=== PATIENT | male | born 1985 | race Caucasian/White ===

== ENCOUNTER 2021-03-20 15:27 | Emergency (ER) | payer SELFPAY ==
--- NOTE | 2021-03-20 15:34 | XR_ITS ---
WS: [id number] XR chest 1V portable [id number] REASON FOR EXAM: cp FINDINGS: The heart and the mediastinum are within normal limits. Calcified granulomatous changes in both hemithoraces. No acute pulmonary parenchymal or pleural disease is identified. No acute abnormality. The bony thorax. XR/XR chest 1V portable [id number] IMPRESSION: No acute chest abnormality.
--- NOTE | 2021-03-20 15:35 | ECG_ITS ---
[facility] Test Date: 2021-03-20 Pat Name: Radhames Baker Department: Room: Gender: Male Fisher Spear: : 1985 Requested By: Norberto Keenan Order Number: [id number] Chappell MD: Casey Magana M.D. Measurements Intervals [place] Rate: 76 P: 58 ME: 133 QRS: 55 QRSD: 98 T: 44 QT: 362 QTc: 408 Interpretive Statements SINUS RHYTHM WITH SINUS ARRHYTHMIA EARLY REPOLARIZATION [ST ELEVATION WITH NORMALLY INFLECTED T-WAVE] No previous ECG available for comparison Electronically Signed On 03-21-2021 17:14:42 SUPERVISOR SCREEN MAKING by Casey Magana M.D. [email or web address] leflore [email or web address] [email or web address] medical [email or web address]/store/[id number] f
[2021-03-20 15:38] VITALS: BP 113/73; PULSE 70; RESP 16; TEMP 36.5; O2SAT 98; BMI 22.4
[2021-03-20 16:07] LABS: Basophils # 0.1 10^3/uL (0.0-0.1); Basophils % 0.6 %; Eosinophils # 0.3 10^3/uL (0.0-0.8); Eosinophils % 2.8 %; Lymphocytes # 3.7 10^3/uL (0.8-4.8); Lymphocytes % 33.7 %; Mean Corpuscular HGB Conc 31.8 g/dL (30.0-36.0); Mean Corpuscular Hemoglobin 28.8 pg (28.0-34.0); Mean Corpuscular Volume 90.5 fl (80-94); Mean Platelet Volume 10.6 fL (7.4-10.4); Monocytes # 0.7 10^3/uL (0.2-0.9); Monocytes % 6.7 %; Neutrophils # 6.05 10^3/uL (1.8-7.7); Neutrophils % 55.7 %; Nucleated Red Blood Cells % 0 %; Platelet Count 241 10^3/cmm (130-400); Red Blood Count 4.86 10^6/uL (4.1-5.3); Red Cell Distribution Width 12.8 % (12.1-15.1); White Blood Count 10.9 10^3/uL (4.0-10.0)
--- NOTE | 2021-03-20 16:11 | ED_ITS ---
HPI - Chest Pain General: Chief Complaint: Chest Pain Stated Complaint: CHEST PAIN Time Seen by Provider: 03/20/21 15:52 Source: patient and EMS Mode of arrival: EMS Limitations: no limitations History of Present Illness: 35-year-old male who states he has been having intermittent chest pains over the last week. He states the minute sharp pain in the center of his chest with some radiation down his left arm. States the pain currently is a 1 out of 10 denies any worsening improving factors no history of heart disease he does have a history of COPD is a smoker. Denies any history of blood clots. Associated symptoms: Deny abdominal pain, dyspnea, fever(s), nausea or vomiting Review of Systems Const: Denies: fever(s), chills, body aches or change in appetite Eyes: Denies: blurry vision or eye discomfort ENMT: Denies: throat pain or dental pain Card: Reports: chest pain Resp: Denies: dyspnea GI: Denies: abdominal pain, nausea, vomiting or diarrhea : Denies: dysuria Musc: Denies: neck pain or back pain Skin/Breast: Denies: rash Neuro: Denies: headache(s) Psych: Denies: depression Yosef/Lymph: Denies: easy bruising All/Imm: Denies: urticaria PFSH ED PFSH: Medical History (Updated 03/20/21 @ 18:23 by Latoya Guzman MD) COPD (chronic obstructive pulmonary disease) Social History (Updated 03/20/21 @ 16:12 by Latoya Guzman MD) Smoking and tobacco status: current every day smoker Physical Exam Const: COMMON NORMALS: no acute distress, patient oriented x3 and healthy appearing HENMT: COMMON NORMALS: normocephalic and atraumatic HEAD & SCALP: normocephalic and atraumatic Eye: COMMON NORMALS: Equal, round and reactive pupils present and EOMs intact bilaterally PUPIL: Yes Equal, round and reactive pupils present Neck/C-Spine: COMMON NORMALS: full ROM and supple Chest: COMMONS NORMALS: normal inspection of the chest and normal palpation of entire chest wall Resp: COMMON NORMALS: normal respiratory effort, No retractions, No use of accessory muscles and clear to auscultation bilaterally AUSCULTATION: clear to auscultation bilaterally Cardio: COMMON NORMALS: regular rate, regular rhythm and No murmurs present (Cardio) RATE: regular rate RHYTHM: regular rhythm GI: COMMON NORMALS: Normal to inspection, nondistended, normoactive bowel sounds present, Soft to palpation, non-tender and no masses PALPATION: Yes Soft to palpation Extremity: COMMON NORMALS: normal to inspection and full ROM Neuro: COMMON NORMALS: patient oriented x3, moves all extremities and no focal motor deficits Psych: COMMON NORMALS: mental status grossly normal, Normal thought process present and cooperative THOUGHT PROCESS: Normal thought process present Skin: COMMON NORMALS: no rashes or lesions noted and no wounds GENERAL SKIN EXAM: no rashes or lesions noted Course Vital Signs: Vital signs: Vital Signs Temperature 97.7 F 03/20/21 15:38 Pulse Rate 70 03/20/21 15:38 Respiratory Rate 16 03/20/21 15:38 Blood Pressure 113/73 03/20/21 15:38 Pulse Oximetry 98 03/20/21 15:38 MDM - Chest Pain Medical Decision Making Patient presents here with chest pain that is atypical in nature. Patient's troponins here are both negative x-ray and EKG are normal as well he stable for discharge she is to follow-up PCP and return if worsening he understands agrees to plan. Lab Data : 03/20/21 15:52 03/20/21 15:52 Radiology Impressions Chest X-Ray 03/20/21 15:34 IMPRESSION: No acute chest abnormality. Laboratory Results WBC 10.9 10^3/uL (4.0-10.0) H 03/20/21 15:52 RBC 4.86 10^6/uL (4.1-5.3) 03/20/21 15:52 Hgb 14.0 g/dL (11.7-16.6) 03/20/21 15:52 Hct 44.0 % (42.0-52.0) 03/20/21 15:52 MCV 90.5 fl (80-94) 03/20/21 15:52 MCH 28.8 pg (28.0-34.0) 03/20/21 15:52 MCHC 31.8 g/dL (30.0-36.0) 03/20/21 15:52 RDW 12.8 % (12.1-15.1) 03/20/21 15:52 Plt Count 241 10^3/cmm (130-400) 03/20/21 15:52 MPV 10.6 fL (7.4-10.4) H 03/20/21 15:52 Neut % (Auto) 55.7 % 03/20/21 15:52 Lymph % (Auto) 33.7 % 03/20/21 15:52 Coleman % (Auto) 6.7 % 03/20/21 15:52 Eos % (Auto) 2.8 % 03/20/21 15:52 Baso % (Auto) 0.6 % 03/20/21 15:52 Neut # (Auto) 6.05 10^3/uL (1.8-7.7) 03/20/21 15:52 Lymph # (Auto) 3.7 10^3/uL (0.8-4.8) 03/20/21 15:52 Coleman # (Auto) 0.7 10^3/uL (0.2-0.9) 03/20/21 15:52 Eos # (Auto) 0.3 10^3/uL (0.0-0.8) 03/20/21 15:52 Baso # (Auto) 0.1 10^3/uL (0.0-0.1) 03/20/21 15:52 Nucleated RBC % (auto) 0 % 03/20/21 15:52 Nucleated RBCs # 0.0 /100WBC 03/20/21 15:52 Sodium 140 mmol/L (136-145) 03/20/21 15:52 Potassium 4.2 mmol/L (3.5-5.1) 03/20/21 15:52 Chloride 103 mmol/L (98-107) 03/20/21 15:52 Carbon Dioxide 27 mmol/L (22-29) 03/20/21 15:52 Anion Gap 14.2 (5-19) 03/20/21 15:52 BUN 17 mg/dL (6-20) 03/20/21 15:52 Creatinine 1.0 mg/dL (0.7-1.2) 03/20/21 15:52 GFR Calculation 85.0 mL/min (90-130) L 03/20/21 15:52 Glucose 80 mg/dL (65-115) 03/20/21 15:52 Calculated Osmolality 291 mOsm/kg (285-295) 03/20/21 15:52 Calcium 9.2 mg/dL (8.5-10.5) 03/20/21 15:52 Total Bilirubin 0.6 mg/dL (0.15-1.2) 03/20/21 15:52 AST 21 U/L (0-40) 03/20/21 15:52 ALT 18 U/L (0-41) 03/20/21 15:52 Alkaline Phosphatase 111 IU/L (40-130) 03/20/21 15:52 Troponin T Baseline 7 ng/L (0-15) 03/20/21 15:52 Troponin T 120 Minute 6.00 ng/L (0-15) 03/20/21 17:41 Delta Troponin T -1.00 ABS# (0-10) L 03/20/21 17:41 Total Protein 6.5 g/dL (6.6-8.7) L 03/20/21 15:52 Albumin 4.9 g/dL (3.5-5.2) 03/20/21 15:52 Globulin 1.6 g/dL (1.3-4.6) 03/20/21 15:52 Imaging Data CXR: I personally reviewed and interpreted this imaging study as follows: Radiologist's impression: IMPRESSION: No acute chest abnormality. EKG Data EKG 1: I personally reviewed and interpreted this EKG as follows: EKG interpretation date: 03/20/21 EKG interpretation time: 15:49 Interpretation: nsr hr 76 early repol no stemi qrs 98 qtc 392 Discharge Plan Discharge Patient Disposition: Home Clinical Impression: Chest pain Discharge Orders: Discharge ED (Routine); Ordered 03/20/21 Ordered By: Latoya Guzman Discharge Diet: Advance as tolerated Discharge Activity: Resume usual activity Patient Instructions: Chest Pain (ED) Coding Level of Care Code ED Air Traffic Control Manager for Chg Fwd Exam Comprehensive
[2021-03-20 16:36] LABS: Alanine Aminotransferase 18 U/L (0-41); Albumin Level 4.9 g/dL (3.5-5.2); Alkaline Phosphatase 111 IU/L (40-130); Anion Gap 14.2 (5-19); Aspartate Amino Transferase 21 U/L (0-40); Blood Urea Nitrogen 17 mg/dL (6-20); Calcium 9.2 mg/dL (8.5-10.5); Carbon Dioxide 27 mmol/L (22-29); Chloride 103 mmol/L (98-107); Globulin 1.6 g/dL (1.3-4.6); Glucose 80 mg/dL (65-115); Osmolality Calculated 291 mOsm/kg (285-295); Potassium 4.2 mmol/L (3.5-5.1); Sodium 140 mmol/L (136-145); Total Bilirubin 0.6 mg/dL (0.15-1.2); Total Protein 6.5 g/dL (6.6-8.7)
[2021-03-20 16:40] LABS: Troponin(5th) Baseline 7 ng/L (0-15)
--- NOTE | 2021-03-21 11:04 | DCPLANNER ---
global product manager had message to speak with patient about getting a primary care physician. global product manager called phone number [phone], unable to speak with patient at this time, and unable to leave a voicemail for patient.
== END 2021-03-20 18:36 | disposition home or self-care (01) ==
PROVIDERS: Physician Assistant; Emergency Provider Emergency Medicine
DX: R07.9 Chest pain, unspecified (principal); J44.9 Chronic obstructive pulmonary disease, unspecified; F17.210 Nicotine dependence, cigarettes, uncomplicated
CPT/HCPCS: 71045; 80053; 84484; 85025; 93005; 99283

== ENCOUNTER 2021-12-15 18:35 | Inpatient (IN) | payer MEDICAID, SELFPAY ==
[2021-12-15 18:40] VITALS: BP 133/76; PULSE 98; RESP 16; TEMP 37.2; O2SAT 95; BMI 21.8
--- NOTE | 2021-12-15 19:13 | ED.C_ITS ---
HPI - Psych General: Chief Complaint: Psychiatric Symptoms Stated Complaint: psych eval Time Seen by Provider: 12/15/21 19:13 History of Present Illness: Mr. Baker is a 36-year-old gentleman with history of substance abuse and reported longstanding history of anxiety depression as well as ADHD presenting to the emergency department for psychiatric evaluation. He has not had recent psychiatric care nor is he on psychiatric medications. Apparently he was staying at a senior living and they were performing routine drug testing on him and he endorsed to them that he would likely test positive for amphetamines and therefore was kicked out. He presents today with a friend from the senior living concerned about his mental status. He does report intermittent thoughts of suicide as well as possible hallucinations though he has difficulty characterizing some of it. Denies actual attempt to harm himself or changes in medical health. Onset (ago): month(s) Duration: constant and getting worse Context: recent drug abuse and not taking psychiatric medications Associated psychiatric symptoms: suicidal ideation, auditory hallucinations and visual hallucinations Review of Systems General: Reports: 10 or more systems reviewed and unremarkable except in HPI and below PFSH ED PFSH: Medical History COPD (chronic obstructive pulmonary disease) Social History Smoking and tobacco status: current every day smoker Physical Exam Const: COMMON NORMALS: alert GENERAL APPEARANCE: cooperative and well developed HENMT: COMMON NORMALS: normocephalic and atraumatic HEAD & SCALP: normocephalic and atraumatic Eye: COMMON NORMALS: conjunctivae normal CONJUNCTIVA: Yes conjunctivae normal SCLERA: sclerae normal Neck/C-Spine: COMMON NORMALS: supple GENERAL: Yes trachea midline Resp: COMMON NORMALS: normal respiratory effort EFFORT & INSPECTION: Yes able to speak in complete sentences Cardio: COMMON NORMALS: regular rate and regular rhythm RATE: regular rate RHYTHM: regular rhythm GI: COMMON NORMALS: Soft to palpation PALPATION: Yes Soft to palpation and No Tenderness to palpation present (GI) PERCUSSION: normal to percussion Extremity: GENERAL: Yes normal exam except as noted and No edema Neuro: COMMON NORMALS: moves all extremities SENSORIUM/ORIENTATION: Yes alert and No Orientation impaired Psych: COMMON NORMALS: mental status grossly normal and Normal thought process present THOUGHT PROCESS: Normal thought process present Course Vital Signs: Vital signs: Vital Signs Temperature 97.3 F L 12/17/21 16:52 Pulse Rate 90 12/17/21 16:52 Respiratory Rate 20 H 12/17/21 16:52 Blood Pressure 106/69 12/17/21 16:52 Pulse Oximetry 95 12/17/21 16:52 Oxygen Delivery Me thod 12/16/21 06:00 MDM - Psych Medical Decision Making 36-year-old gentleman presenting with psychiatric symptoms. Patient has very odd affect and at times possibly interacting with internal stimuli. Labs notable for minimal leukocytosis which is nonspecific, no other significant hematologic or metabolic abnormality. UDS positive for amphetamines and toxic ingestions otherwise negative. No indication for imaging. The results of ED evaluation were discussed with the patient including plan for admission due to requirement for level of care not available if discharged to prevent significant worsening/deterioration. Patient agreeable with plan. Based on ED evaluation at this point there is no obvious condition that would preclude the patient from inpatient management of psychiatric symptoms. Discussed with psychiatry service and patient admitted to neuropsych unit. Medical Records I reviewed the patient's medical records. Lab Data I reviewed the patient's lab results. : 12/15/21 19:40 12/15/21 19:40 Laboratory Results WBC 11.3 10^3/uL (4.0-10.0) H 12/15/21 19:40 RBC 4.77 10^6/uL (4.1-5.3) 12/15/21 19:40 Hgb 13.7 g/dL (11.7-16.6) 12/15/21 19:40 Hct 42.9 % (42.0-52.0) 12/15/21 19:40 MCV 89.9 fl (80-94) 12/15/21 19:40 MCH 28.7 pg (28.0-34.0) 12/15/21 19:40 MCHC 31.9 g/dL (30.0-36.0) 12/15/21 19:40 RDW 13.4 % (12.1-15.1) 12/15/21 19:40 Plt Count 248 10^3/cmm (130-400) 12/15/21 19:40 MPV 10.0 fL (7.4-10.4) 12/15/21 19:40 Neut % (Auto) 68.9 % 12/15/21 19:40 Lymph % (Auto) 23.2 % 12/15/21 19:40 [place] % (Auto) 6.5 % 12/15/21 19:40 Eos % (Auto) 0.3 % 12/15/21 19:40 Baso % (Auto) 0.7 % 12/15/21 19:40 Neut # (Auto) 7.79 10^3/uL (1.8-7.7) H 12/15/21 19:40 Lymph # (Auto) 2.6 10^3/uL (0.8-4.8) 12/15/21 19:40 [place] # (Auto) 0.7 10^3/uL (0.2-0.9) 12/15/21 19:40 Eos # (Auto) 0.0 10^3/uL (0.0-0.8) 12/15/21 19:40 Baso # (Auto) 0.1 10^3/uL (0.0-0.1) 12/15/21 19:40 Nucleated RBC % (auto) 0 % 12/15/21 19:40 Nucleated RBCs # 0.0 /100WBC 12/15/21 19:40 Sodium 139 mmol/L (136-145) 12/15/21 19:40 Potassium 3.8 mmol/L (3.5-5.1) 12/15/21 19:40 Chloride 102 mmol/L (98-107) 12/15/21 19:40 Carbon Dioxide 27 mmol/L (22-29) 12/15/21 19:40 Anion Gap 13.8 (5-19) 12/15/21 19:40 BUN 20 mg/dL (6-20) 12/15/21 19:40 Creatinine 0.9 mg/dL (0.7-1.2) 12/15/21 19:40 GFR Calculation 95.5 mL/min (90-130) 12/15/21 19:40 Glucose 97 mg/dL (65-115) 12/15/21 19:40 Calculated Osmolality 291 mOsm/kg (285-295) 12/15/21 19:40 Calcium 9.5 mg/dL (8.5-10.5) 12/15/21 19:40 Total Bilirubin 1.0 mg/dL (0.15-1.2) 12/15/21 19:40 AST 27 U/L (0-40) 12/15/21 19:40 ALT 55 U/L (0-41) H 12/15/21 19:40 Alkaline Phosphatase 122 U/L (40-130) 12/15/21 19:40 Total Protein 7.5 g/dL (6.6-8.7) 12/15/21 19:40 Albumin 5.0 g/dL (3.5-5.2) 12/15/21 19:40 Globulin 2.5 g/dL (1.3-4.6) 12/15/21 19:40 TSH 5.18 uIU/mL (0.27-4.20) H 12/15/21 19:40 Free T4 0.91 ng/dL (0.82-1.77) 12/15/21 19:40 Salicylates < 0.3 mg/dL (3-10) L 12/15/21 19:40 Urine Opiates Screen Negative ng/mL (Negative) 12/15/21 19:32 Acetaminophen < 5.0 ug/mL (10-30) L 12/15/21 19:40 Ur Barbiturates Screen Negative ng/mL (Negative) 12/15/21 19:32 Ur Phencyclidine Scrn Negative ng/mL (Negative) 12/15/21 19:32 Ur Amphetamines Screen Positive ng/mL (Negative) H 12/15/21 19:32 U Benzodiazepines Scrn Negative ng/mL (Negative) 12/15/21 19:32 Urine Cocaine Screen Negative ng/mL (Negative) 12/15/21 19:32 U Marijuana (THC) Screen Negative ng/mL (Negative) 12/15/21 19:32 Ethyl Alcohol < 10 mg/dL (0-10) 12/15/21 19:40 Discharge Plan Discharge Patient Disposition: Admitted As Inpatient Admit Provider: Bobby Mott Clinical Impression: Suicidal ideation, Drug-induced psychotic disorder Condition: Stable Discharge Diet: Regular Discharge Activity: Resume usual activity Coding Level of Care Code ED Private Banker for Nicholas Lema
[2021-12-15 19:53] LABS: Basophils # 0.1 10^3/uL (0.0-0.1); Basophils % 0.7 %; Eosinophils % 0.3 %; Hematocrit 42.9 % (42.0-52.0); Hemoglobin 13.7 g/dL (11.7-16.6); Lymphocytes # 2.6 10^3/uL (0.8-4.8); Lymphocytes % 23.2 %; Mean Corpuscular HGB Conc 31.9 g/dL (30.0-36.0); Mean Corpuscular Hemoglobin 28.7 pg (28.0-34.0); Mean Corpuscular Volume 89.9 fl (80-94); Monocytes # 0.7 10^3/uL (0.2-0.9); Monocytes % 6.5 %; Neutrophils # 7.79 10^3/uL (1.8-7.7); Neutrophils % 68.9 %; Nucleated Red Blood Cells % 0 %; Platelet Count 248 10^3/cmm (130-400); Red Blood Count 4.77 10^6/uL (4.1-5.3); Red Cell Distribution Width 13.4 % (12.1-15.1); White Blood Count 11.3 10^3/uL (4.0-10.0)
[2021-12-15 20:17] LABS: Alanine Aminotransferase 55 U/L (0-41); Alkaline Phosphatase 122 U/L (40-130); Anion Gap 13.8 (5-19); Aspartate Amino Transferase 27 U/L (0-40); Blood Urea Nitrogen 20 mg/dL (6-20); Calcium 9.5 mg/dL (8.5-10.5); Carbon Dioxide 27 mmol/L (22-29); Chloride 102 mmol/L (98-107); Globulin 2.5 g/dL (1.3-4.6); Glomerular Filtration Rate 95.5 mL/min (90-130); Glucose 97 mg/dL (65-115); Osmolality Calculated 291 mOsm/kg (285-295); Potassium 3.8 mmol/L (3.5-5.1); Sodium 139 mmol/L (136-145); Total Protein 7.5 g/dL (6.6-8.7)
[2021-12-15 20:26] LABS: Acetaminophen < 5.0 ug/mL (10-30); Alcohol Level < 10 mg/dL (0-10); Salicylate < 0.3 mg/dL (3-10)
[2021-12-15 20:31] LABS: Amphetamines Screen Urine Positive (Negative); Barbiturates Screen Urine Negative (Negative); Benzodiazepines Screen Urine Negative (Negative); Cocaine Screen Urine Negative (Negative); Opiate Screen Urine Negative (Negative); PCP Screen Urine Negative (Negative); THC Screen Urine Negative (Negative)
[2021-12-15 20:52] LABS: Thyroid Stimulating Hormone 5.18 uIU/mL (0.27-4.20)
[2021-12-15 22:01] LABS: Free T4 Free Thyroxine 0.91 ng/dL (0.82-1.77)
[2021-12-15 22:12] VITALS: BP 139/61; PULSE 82; RESP 17; O2SAT 98
[2021-12-15 22:34] VITALS: BP 132/82; PULSE 82; RESP 17; TEMP 36.6; O2SAT 95
[2021-12-16] MEDS: OLANZapine 5 mg ODT PO (03:38)
[2021-12-16 06:00] VITALS: BP 145/81; PULSE 79; RESP 16; TEMP 36.6; O2SAT 97
--- NOTE | 2021-12-16 09:19 | W.PM.NPUH&PS ---
Providers/Chief Complaint Admitting Physician: Bobby Mott MD Chief Complaint: psych eval HPI NPU History of Present Illness Radhames Baker is a 36 year old male who presented to the emergency department with the following report: Chief Complaint: Psychiatric Symptoms Stated Complaint: psych eval Time Seen by Provider: 12/15/21 19:13 History of Present Illness: Mr. Baker is a 36-year-old gentleman with history of substance abuse and reported longstanding history of anxiety depression as well as ADHD presenting to the emergency department for psychiatric evaluation. He has not had recent psychiatric care nor is he on psychiatric medications. Apparently [facility] at a [facility] and they were performing routine drug testing on him and he endorsed to them that he would likely test positive for amphetamines and therefore was kicked out. He presents today with a friend from the [facility] concerned about his mental status. He does report intermittent thoughts of suicide as well as possible hallucinations though he has difficulty characterizing some of it. Denies actual attempt to harm himself or changes in medical health. He was admitted to the neuropsychiatric unit for definitive treatment of those issues. He presents today initially unarousable but then later able to get up and have a conversation of limited utility. He was either unable or unwilling to give historical data other than what was already known. Specifically that he had [place] [facility] [place] that reportedly they asked him to take a drug test that he denies he would be positive on and that they reportedly kicked him out. He came here reporting that he wanted to get assistance with his mental health challenges. However after being very resistant to questions he began focusing on when he could be discharged. Initially talked about being open to starting antipsychotic but then he began focusing on the fact that he has items outside of the hospital that he has to get. When asked what he would do after he got those items he reported he would return to [facility] We discussed the fact that [facility] [place] does not allow people who have been dismissed to return for 1 year. He then reported that after he got his things he would be able to figure things out. This contract technical writer attempted to describe date of that [place] town there are not many alternatives. He was convinced that he would be able to figure out an alternative arrangement that would not involve being homeless or on the streets even though he acknowledged that he had no money or access to money. We discussed him sleeping at today and thus discussing tomorrow given that it was unclear whether he would be safe for discharge. He was agreeable to stay for the night but was very adamant about wanting to be discharged tomorrow. Attempts at psychosocial history were met with resistance or answers vet diagnosis due to his disorganization. Meds NPU Home Medications Medication Instructions Recorded Confirmed Last Taken Type No Known Home Medications 12/15/21 12/15/21 Unknown History Allergies Allergy/AdvReac Type Severity Reaction Status Date / Time No Known Allergies Allergy Verified 03/20/21 15:38 PFSH NPU PFSH: Medical History (Updated 12/17/21 @ 08:23 by Bobby Mott MD) COPD (chronic obstructive pulmonary disease) Social History (Updated 03/20/21 @ 16:12 by Latoya Guzman MD) Smoking and tobacco status: current every day smoker Mental Status Exam MSE Comments: This is a slender white male in hospital scrubs with limited grooming and eye contact. No abnormal movements except for psychomotor retardation. Mostly cooperative with exam in mild distress. Speech was limited and decreased rate and volume. Mood described as fine but I have to get my things, affect odd. Thought process linear but at times disorganized. Thought content: Patient denied suicidal or homicidal ideation, there were no delusions reported but clear paranoia existed, he denied auditory or visual hallucinations but was seen in speaking to himself when away from this contract technical writer. Attention and concentration were intact and memory seemed unreliable but none were formally tested. He was already x3. Insight and judgment and impulse control seemed limited to impaired. Vitals/I&O/Wt Last Vital Signs Temp 97.9 F 12/16/21 06:00 Pulse 79 12/16/21 06:00 Resp 16 12/16/21 06:00 BP 145/81 12/16/21 06:00 Pulse Ox 97 12/16/21 06:00 O2 Del Method 12/16/21 06:00 Weight last 48 hrs Weight 67.132 kg Data NPU : 12/15/21 19:40 12/15/21 19:40 A&P Assessment and plan (1) Suicidal ideation: (2) Drug-induced psychotic disorder: (3) COPD (chronic obstructive pulmonary disease): (4) Psychosis: (5) Methamphetamine use disorder, severe: Plan This is a 36-year-old white male with history of psychosis as well as active addiction who presents homeless and disorganized but with limited interest in considering medications and treatment. 1. Review medications. Offer antipsychotic the patient wavering on whether to stay and it is unclear whether criteria for forced inpatient hospitalization is present. 2. Continue to continue to check for safety. 3. Encourage individual, group vet and therapy. 4. Encourage sober living treatment after discharge at the highest level of care to which he is willing to commit. 5. Consider 96-hour hold. Involuntary Hold Information 96 Hour Hold: 96 Hour Involuntary Admission: No Attestations NPU Medical Necessity Statement*: Inpatient hospitalization is medically necessary and the clinically appropriate intervention at this time. We will monitor/start medications and make changes as indicated. He will be in the hospital over 2 midnights. Likely length of stay 4 to 6 days. Coding Level of Care Code Acute Bariatric Physician for Nicholas Lema Diagnoses Suicidal ideation R45.851 Drug-induced psychotic disorder F19.959 COPD (chronic obstructive pulmonary disease) J44.9 Psychosis F29 Methamphetamine use disorder, 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
[2021-12-16 14:00] VITALS: BP 95/56; PULSE 73; RESP 18; TEMP 36.5; O2SAT 96
[2021-12-16 19:40] VITALS: BP 116/73; PULSE 97; RESP 17; O2SAT 98
[2021-12-17 06:00] VITALS: BP 105/55; PULSE 69; RESP 16; TEMP 36.4; O2SAT 97
[2021-12-17 14:00] VITALS: BP 106/69; PULSE 90; RESP 20; TEMP 36.3; O2SAT 95
--- NOTE | 2021-12-17 16:51 | P.NPUDS_ITS ---
Diagnoses at Discharge Discharge Diagnosis (1) Suicidal ideation: Status: Resolved (2) Drug-induced psychotic disorder: Status: Acute (3) COPD (chronic obstructive pulmonary disease): Status: Acute (4) Psychosis: Status: Acute (5) Methamphetamine use disorder, severe: Status: Acute Reason for Visit Reason for Visit: psych eval Brief History: History of Present Illness Radhames Baker is a 36 year old male who presented to the emergency department with the following report: Chief Complaint: Psychiatric Symptoms Stated Complaint: psych eval Time Seen by Provider: 12/15/21 19:13 History of Present Illness:?? Mr. Baker is a 36-year-old gentleman with history of substance abuse and reported longstanding history of anxiety depression as well as ADHD presenting to the emergency department for psychiatric evaluation.? He has not had recent psychiatric care nor is he on psychiatric medications.? Apparently he was staying at a [place] [facility] [place] and they were performing routine drug testing on him and he endorsed to them that he would likely test positive for amphetamines and therefore was kicked out.? He presents today with a friend from the [place] [facility] [place] concerned about his mental status.? He does report intermittent thoughts of suicide as well as possible hallucinations though he has difficulty characterizing some of it.? Denies actual attempt to harm himself or changes in medical health. He was admitted to the neuropsychiatric unit for definitive treatment of those issues.? He presents today initially unarousable but then later able to get up and have a conversation of limited utility.? He was either unable or unwilling to give historical data other than what was already known.? Specifically that he had been at [facility] and that reportedly they asked him to take a drug test that he denies he would be positive on and that they reportedly kicked him out.? He came here reporting that he wanted to get assistance with his mental health challenges.? However after being very resistant to questions he began focusing on when he could be discharged.? Initially talked about being open to starting antipsychotic but then he began focusing on the fact that he has items outside of the hospital that he has to get.? When asked what he would do after he got those items he reported he would return to [facility].? We discussed the fact that [facility] generally does not allow people who have been dismissed to return for 1 year.? He then reported that after he got his things he would be able to figure things out.? This property underwriter attempted to describe date of that [place] a [place] town there are not many alternatives.? He was convinced that he would be able to figure out an alternative arrangement that would not involve being homeless or on the streets even though he acknowledged that he had no money or access to money.? We discussed him sleeping at today and thus discussing tomorrow given that it was unclear whether he would be safe for discharge.? He was agreeable to stay for the night but was very adamant about wanting to be discharged tomorrow.? Attempts at psychosocial history were met with resistance or answers vet diagnosis due to his disorganization. Hospital Course Hospital Course He slowly acclimated to the individual, group and milieu therapies.? He was resistant to medication and endorsed a desire to leave due to great concerns about items he has stashed in the community. We discussed our concerns about what seemed to be thought disorder but he did not have any clear issues that would allow for a 96-hour hold paperwork. We discussed the fact that our suspicion is that he is having psychosis that would need treatment but that we would allow him to leave as a voluntary patient with the understanding that if he returns it will be confirmation of our suspicions. He showed mild improvement during the hospitalization and was able to contract for safety outside of the hospital prior to discharge.? During the hospitalization, patient had routine laboratory studies which were within normal limits except for few outliers.? Additionally there was a general medical evaluation which was also within normal limits and revealed no new acute processes. Discharge Summary: At the time of discharge, lethality was denied and psychosis appeared present but underwhelming.? Mood and anxiety were well managed.? Patient endorsed a plan to avoid all drugs of abuse and follow-up with the aftercare recommendations of the treatment team.? Patient was evaluated and deemed to be absent credible lethality, and was a voluntary patient lacking criteria for a 96-hour hold no longer wanting inpatient hospitalization, so he was discharged. Involuntary Hold Information 96 Hour Hold: 96 Hour Involuntary Admission: No Mental Status Exam MSE Comments: This is a slender white male in hospital scrubs with limited grooming and eye contact. No abnormal movements except for psychomotor retardation. Mostly cooperative with exam in mild distress. Speech was limited and decreased rate and volume. Mood described as fine but I have to get my things, affect odd. Thought process linear but at times disorganized. Thought content: Patient denied suicidal or homicidal ideation, there were no delusions reported but clear paranoia existed, he denied auditory or visual hallucinations but was seen in speaking to himself when away from this property underwriter. Attention and concentration were intact and memory seemed unreliable but none were formally tested. He was already x3. Insight and judgment and impulse control seemed limited to impaired. Discharge Data Studies Completed and Pending: Laboratory Results WBC 11.3 10^3/uL (4.0 -10.0) H 12/15/21 19:40 RBC 4.77 10^6/uL (4.1 -5.3) 12/15/21 19:40 Hgb 13.7 g/dL (11.7-1 6.6) 12/15/21 19:40 Hct 42.9 % (42.0-52.0 ) 12/15/21 19:40 MCV 89.9 fl (80-94) 12/15/21 19:40 MCH 28.7 pg (28.0-34. 0) 12/15/21 19:40 MCHC 31.9 g/dL (30.0-3 6.0) 12/15/21 19:40 RDW 13.4 % (12.1-15.1 ) 12/15/21 19:40 Plt Count 248 10^3/cmm (130 -400) 12/15/21 19:40 MPV 10.0 fL (7.4-10.4 ) 12/15/21 19:40 Neut % (Auto) 68.9 % 12/15/21 19:40 Lymph % (Auto) 23.2 % 12/15/21 19:40 Pine % (Auto) 6.5 % 12/15/21 19:40 Eos % (Auto) 0.3 % 12/15/21 19:40 Baso % (Auto) 0.7 % 12/15/21 19:40 Neut # (Auto) 7.79 10^3/uL (1.8 -7.7) H 12/15/21 19:40 Lymph # (Auto) 2.6 10^3/uL (0.8- 4.8) 12/15/21 19:40 Pine # (Auto) 0.7 10^3/uL (0.2- 0.9) 12/15/21 19:40 Eos # (Auto) 0.0 10^3/uL (0.0- 0.8) 12/15/21 19:40 Baso # (Auto) 0.1 10^3/uL (0.0- 0.1) 12/15/21 19:40 Nucleated RBC % (a uto) 0 % 12/15/21 19:40 Nucleated RBCs # 0.0 /100WBC 12/15/21 19:40 Sodium 139 mmol/L (136-1 45) 12/15/21 19:40 Potassium 3.8 mmol/L (3.5-5 .1) 12/15/21 19:40 Chloride 102 mmol/L (98-10 7) 12/15/21 19:40 Carbon Dioxide 27 mmol/L (22-29) 12/15/21 19:40 Anion Gap 13.8 (5-19) 12/15/21 19:40 BUN 20 mg/dL (6-20) 12/15/21 19:40 Creatinine 0.9 mg/dL (0.7-1. 2) 12/15/21 19:40 GFR Calculation 95.5 mL/min (90-1 30) 12/15/21 19:40 Glucose 97 mg/dL (65-115) 12/15/21 19:40 Calculated Osmolal ity 291 mOsm/kg (285- 295) 12/15/21 19:40 Calcium 9.5 mg/dL (8.5-10 .5) 12/15/21 19:40 Total Bilirubin 1.0 mg/dL (0.15-1 .2) 12/15/21 19:40 AST 27 U/L (0-40) 12/15/21 19:40 ALT 55 U/L (0-41) H 12/15/21 19:40 Alkaline Phosphata se 122 U/L (40-130) 12/15/21 19:40 Total Protein 7.5 g/dL (6.6-8.7 ) 12/15/21 19:40 Albumin 5.0 g/dL (3.5-5.2 ) 12/15/21 19:40 Globulin 2.5 g/dL (1.3-4.6 ) 12/15/21 19:40 TSH 5.18 uIU/mL (0.27 -4.20) H 12/15/21 19:40 Free T4 0.91 ng/dL (0.82- 1.77) 12/15/21 19:40 Salicylates < 0.3 mg/dL (3-10 ) L 12/15/21 19:40 Urine Opiates Scre en Negative ng/mL (N egative) 12/15/21 19:32 Acetaminophen < 5.0 ug/mL (10-3 0) L 12/15/21 19:40 Ur Barbiturates Sc reen Negative ng/mL (N egative) 12/15/21 19:32 Ur Phencyclidine S crn Negative ng/mL (N egative) 12/15/21 19:32 Ur Amphetamines Sc reen Positive ng/mL (N egative) H 12/15/21 19:32 U Benzodiazepines Scrn Negative ng/mL (N egative) 12/15/21 19:32 Urine Cocaine Scre en Negative ng/mL (N egative) 12/15/21 19:32 U Marijuana (THC) Screen Negative ng/mL (N egative) 12/15/21 19:32 Ethyl Alcohol < 10 mg/dL (0-10) 12/15/21 19:40 Vitals: Last Vital Signs Temp 97.3 F L 12/17/21 14:00 Pulse 90 12/17/21 14:00 Resp 20 H 12/17/21 14:00 BP 106/69 12/17/21 14:00 Pulse Ox 95 12/17/21 14:00 O2 Del Method 12/16/21 06:00 Discharge Plan Discharge Patient Disposition: Home Condition: Stable Prescriptions: No Action No Known Home Medications Discharge Orders: Discharge Order (Routine); Ordered 12/17/21 Ordered By: Bobby Mott Discharge Diet: Regular Discharge Activity: Resume usual activity Patient Instructions: Opioid Safety Discharge Attestations NPU Time Spent in Discharge Care*: less than 30 min Specific Discharge Activities: Specific discharge activities: educating patient, discussing with family service caseworker/social workers/dc planners, documenting/other paperwork and evaluating patient/reviewing data Coding Level of Care Code Acute g DC note Diagnoses Suicidal ideation R45.851 Drug-induced psychotic disorder F19.959 COPD (chronic obstructive pulmonary disease) J44.9 Psychosis F29 Methamphetamine use disorder, 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
[2021-12-17 16:52] VITALS: BP 106/69; PULSE 90; RESP 20; TEMP 36.3; O2SAT 95
== END 2021-12-17 16:59 | disposition home or self-care (01) | DRG 897 ==
LOC: ER 20:46 → NP 21:42
PROVIDERS: Admitting Provider Psychiatry & Neurology Psychiatry; Emergency Provider Emergency Medicine; Visit Provider Psychiatry & Neurology Psychiatry
DX: F15.250 Other stimulant dependence with stimulant-induced psychotic disorder with delusions (principal); R45.851 Suicidal ideations; F90.9 Attention-deficit hyperactivity disorder, unspecified type; F41.8 Other specified anxiety disorders; Z59.01 Sheltered homelessness; J44.9 Chronic obstructive pulmonary disease, unspecified; F17.200 Nicotine dependence, unspecified, uncomplicated
CPT/HCPCS: 80053; 80306; 80307; 84439; 84443; 85025; 97165; 99285

== ENCOUNTER 2021-12-24 18:22 | Emergency (ER) | payer MEDICAID, SELFPAY ==
[2021-12-24 18:23] VITALS: BP 139/83; PULSE 103; RESP 16; TEMP 36.4; O2SAT 95; BMI 21.4
--- NOTE | 2021-12-24 18:40 | ECG_ITS ---
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 Measurements Intervals [place] Rate: 82 P: 146 CA: 131 QRS: 142 QRSD: 94 T: 128 QT: 361 QTc: 422 Interpretive Statements ECTOPIC ATRIAL RHYTHM INCOMPLETE RIGHT BUNDLE BRANCH BLOCK [90+ ms QRS DURATION, TERMINAL R IN V1/V2, 40+ ms S IN I/aVL/V4/V5/V6] POSSIBLE RIGHT VENTRICULAR HYPERTROPHY [SOME/ALL OF: PROMINENT R IN V1, LATE TRANSITION, RAD, YOSEPH, SSS] Compared to ECG 03/20/2021 15:49:37 Ectopic atrial rhythm now present Incomplete right bundle-branch block now present Sinus rhythm no longer present Sinus arrhythmia no longer present Early repolarization no longer present Electronically Signed On 12-24-2021 22:22:19 SEAM TAPER MACHINE by Naga Arreola M.D. [id number]
--- NOTE | 2021-12-24 18:40 | ED_ITS ---
HPI - Animal Bite General: Chief Complaint: Animal Bite Stated Complaint: bit by some bug Time Seen by Provider: 12/24/21 18:34 History of Present Illness: 36-year-old male patient comes in today for complaints of insect sting to his left leg yesterday. Patient was concerned because he felt like after the sting his heart stopped. Patient does admit to using methamphetamines. Patient appears nontoxic. Patient appears in no acute distress. Associated symptoms: Deny fever(s) Review of Systems Const: Denies: fever(s) Card: Reports: palpitations Resp: Denies: dyspnea Musc: Reports: extremity pain PFS ED PFSH: Medical History COPD (chronic obstructive pulmonary disease) Social History Smoking and tobacco status: current every day smoker Physical Exam Const: COMMON NORMALS: alert HENMT: HEAD & SCALP: normal to inspection Neck/C-Spine: COMMON NORMALS: full ROM Resp: COMMON NORMALS: normal respiratory effort and clear to auscultation bilaterally AUSCULTATION: clear to auscultation bilaterally Cardio: COMMON NORMALS: regular rate and regular rhythm RATE: regular rate RHYTHM: regular rhythm Extremity: LEFT LOWER EXTREMITY: Yes upper leg (No sign of injury or redness) and Yes lower leg (No sign of injury or redness) Neuro: SENSORIUM/ORIENTATION: Yes alert Skin: NARRATIVE SKIN EXAM: No punctate lesions or abnormalities to suggest insect bite or infection Course Vital Signs: Vital signs: Vital Signs Temperature 97.6 F 12/24/21 18:23 Pulse Rate 82 12/24/21 19:17 Respiratory Rate 16 12/24/21 19:17 Blood Pressure 139/83 12/24/21 18:23 Pulse Oximetry 95 12/24/21 18:23 Oxygen Delivery Me thod 12/24/21 18:23 MDM - Animal Bite Medical Decision Making 36-year-old male patient comes in today for complaints of insect bite and feeling that his heart stopped yesterday. Patient reports methamphetamine use yesterday. On exam lungs are clear to auscultation. Heart rates regular. Abdomen soft nontender. Visualization of the area where patient felt a sting notes no lesion or area of redness. Differential diagnosis includes substance use disorder, drug-induced hallucination, anxiety, palpitations, insect bite. EKG was unremarkable. No obvious sign of insect bite was noted on exam. If patient was bit by an insect he has had no significant reaction to it. Recommend patient use acetaminophen or ibuprofen for pain, Benadryl as needed for itching. Recommend plenty of fluids and follow-up with primary care. Patient reported understanding agreed to plan. Discharge Plan Discharge Patient Disposition: Home Clinical Impression: Insect bite Qualifiers: Encounter type: initial encounter Site of insect bite: lower leg Laterality: left Qualified Code(s): S80.862A - Insect bite (nonvenomous), left lower leg, initial encounter Condition: Stable Prescriptions: No Action No Known Home Medications Discharge Orders: Discharge ED (Routine); Ordered 12/24/21 Ordered By: Pepe Landis Discharge Diet: Usual diet Discharge Activity: Increase activity as tolerated Patient Instructions: Insect Bite or Sting (ED) Activity Restrictions/Additional Instructions: Home and rest. Drink plenty of fluids. Use acetaminophen or ibuprofen for pain. Use Benadryl for itching. Follow-up with primary care for further instruction. Coding Level of Care Code ED Social Media Content Manager for Vazquezg Fwd Exam Detailed
[2021-12-24 19:17] VITALS: PULSE 82; RESP 16
== END 2021-12-24 19:19 | disposition home or self-care (01) ==
PROVIDERS: Emergency Provider Nurse Practitioner Family
DX: S80.862A Insect bite (nonvenomous), left lower leg, initial encounter (principal); W57.XXXA Bitten or stung by nonvenomous insect and other nonvenomous arthropods, initial encounter
CPT/HCPCS: 93005; 99283

== ENCOUNTER 2021-12-27 20:05 | Emergency (ER) | payer MEDICAID, SELFPAY ==
--- NOTE | 2021-12-27 20:08 | XRR_ITS ---
PROCEDURE INFORMATION: Exam: XR Chest Exam date and time: 12/27/2021 9:14 PM Age: 36 years old Clinical indication: Pain; Chest pressure; Additional info: Cp TECHNIQUE: Imaging protocol: Radiologic exam of the chest. Views: 1 view. COMPARISON: CR XR chest 1V portable [id number] 03/20/2021 3:57 PM FINDINGS: Lungs: The lungs are clear. Azygos fissure. Pleural spaces: Unremarkable. No pleural effusion. No pneumothorax. Heart/Mediastinum: Unremarkable. No cardiomegaly. Bones/joints: Unremarkable. XR/XR chest 1V portable [id number] IMPRESSION: No acute findings.
--- NOTE | 2021-12-27 20:08 | ECG_ITS ---
[facility] Test Date: 2021-12-27 Pat Name: Radhames Baker Department: Room: Gender: Male Senior Investigator: : 1985 Requested By: Latoya Guzman Order Number: [id number] MD: Casey Magana M.D. Measurements Intervals [place] Rate: 83 P: 55 ME: 136 QRS: 61 QRSD: 93 T: 44 QT: 340 QTc: 400 Interpretive Statements SINUS RHYTHM Compared to ECG 12/24/2021 19:07:31 Ectopic atrial rhythm no longer present Incomplete right bundle-branch block no longer present Atrial abnormality no longer present Electronically Signed On 12-29-2021 6:27:18 CONCRETE VAULT MAKER by Casey Magana M.D. [id number]
[2021-12-27 20:13] VITALS: BP 117/73; PULSE 78; RESP 15; TEMP 36.6; O2SAT 98; BMI 21.4
--- NOTE | 2021-12-27 20:54 | ED_ITS ---
HPI - Chest Pain General: Chief Complaint: Chest Pain Stated Complaint: cp,bug bite, Time Seen by Provider: 12/27/21 20:09 Source: patient Mode of arrival: ambulatory Limitations: no limitations History of Present Illness: 36-year-old male who is a history of homelessness he has been sleeping our waiting room over the last 5 days security to ask him to leave tonight we then studied having chest pains he tells me has been having pains for 3 to 4 days it is sharp pain in the center of his chest denies any cough or fever. He has had some slight shortness of breath denies any worsening proved factors. Associated symptoms: Deny abdominal pain, dyspnea, fever(s), nausea or vomiting Review of Systems Const: Denies: fever(s), chills, body aches or change in appetite Eyes: Denies: blurry vision or eye discomfort ENMT: Denies: throat pain or dental pain Card: Reports: chest pain Resp: Denies: dyspnea GI: Denies: abdominal pain, nausea, vomiting or diarrhea : Denies: dysuria Musc: Denies: neck pain or back pain Skin/Breast: Denies: rash Neuro: Denies: headache(s) Psych: Denies: depression Yosef/Lymph: Denies: easy bruising All/Imm: Denies: urticaria PFSH ED PFSH: Medical History COPD (chronic obstructive pulmonary disease) Social History Smoking and tobacco status: current every day smoker Physical Exam Const: COMMON NORMALS: no acute distress, patient oriented x3 and healthy appearing HENMT: COMMON NORMALS: normocephalic and atraumatic HEAD & SCALP: normoce phalic and atraumatic Eye: COMMON NORMALS: Equal, round and reactive pupils present and EOMs intact bilaterally PUPIL: Yes Equal, round and reactive pupils present Neck/C-Spine: COMMON NORMALS: full ROM and supple Chest: COMMONS NORMALS: normal inspection of the chest and normal palpation of entire chest wall Resp: COMMON NORMALS: normal respiratory effort, No retractions, No use of accessory muscles and clear to auscultation bilaterally AUSCULTATION: clear to auscultation bilaterally Cardio: COMMON NORMALS: regular rate, regular rhythm and No murmurs present (Cardio) RATE: regular rate RHYTHM: regular rhythm GI: COMMON NORMALS: Normal to inspection, nondistended, normoactive bowel sounds present, Soft to palpation, non-tender and no masses PALPATION: Yes Soft to palpation Extremity: COMMON NORMALS: normal to inspection and full ROM Neuro: COMMON NORMALS: patient oriented x3, moves all extremities and no focal motor deficits Psych: COMMON NORMALS: mental status grossly normal, Normal thought process present and cooperative THOUGHT PROCESS: Normal thought process present Skin: COMMON NORMALS: no rashes or lesions noted and no wounds GENERAL SKIN EXAM: no rashes or lesions noted Course Vital Signs: Vital signs: Vital Signs Temperature 97.9 F 12/27/21 20:13 Pulse Rate 78 12/27/21 20:13 Respiratory Rate 15 12/27/21 20:13 Blood Pressure 117/73 12/27/21 20:13 Pulse Oximetry 98 12/27/21 20:13 Oxygen Delivery Me thod 12/27/21 20:13 MDM - Chest Pain Medical Decision Making Patient presents here with chest pain atypical in nature his EKG in x-ray here normal patient is likely malingering he has no signs of acute coronary syndrome he is stable for discharge. Lab Data Radiology Impressions Chest X-Ray 12/27/21 20:08 IMPRESSION: No acute findings. EKG Data EKG 1: I personally reviewed and interpreted this EKG as follows: EKG interpretation date: 12/27/21 EKG interpretation time: 20:14 Interpretation: nsr hr [address] or t wave abnormalities qrs 93 qtc 380 Discharge Plan Discharge Patient Disposition: Home Clinical Impression: Chest pain Condition: Stable Prescriptions: No Action No Known Home Medications Discharge Orders: Discharge ED (Routine); Ordered 12/27/21 Ordered By: Latoya Guzman Discharge Diet: Advance as tolerated Discharge Activity: Resume usual activity Patient Instructions: Chest Pain (ED) Coding Level of Care Code ED Assistant Teaching Professor for Chg Fwd Exam Comprehensive
== END 2021-12-27 21:07 | disposition home or self-care (01) ==
PROVIDERS: Emergency Provider Emergency Medicine
DX: R07.9 Chest pain, unspecified (principal); J44.9 Chronic obstructive pulmonary disease, unspecified; F17.210 Nicotine dependence, cigarettes, uncomplicated
CPT/HCPCS: 71045; 93005; 99284

== ENCOUNTER 2021-12-28 19:09 | Inpatient (IN) | payer MEDICAID, SELFPAY ==
[2021-12-28 19:12] VITALS: BMI 23.8
[2021-12-28 19:14] VITALS: BP 127/78; PULSE 90; RESP 18; TEMP 37; O2SAT 95
--- NOTE | 2021-12-28 19:19 | W.ED.PSYCHS ---
HPI - Psych General: Chief Complaint: Psychiatric Symptoms Stated Complaint: SI Time Seen by Provider: 12/28/21 19:11 Source: patient Mode of arrival: ambulatory Limitations: no limitations History of Present Illness: 36-year-old male who states that he has been having suicidal thoughts he does not have a specific plan but states he has had increasing depression he is currently homeless he was admitted earlier this month he has a history of meth abuse he did admit to meth use 3 days ago with he denies any worsening proving factors. Associated symptoms: Reports depression and suicidal ideation Review of Systems Const: Denies: fever(s), chills, body aches or change in appetite Eyes: Denies: blurry vision or eye discomfort ENMT: Denies: throat pain or dental pain Card: Denies: chest pain Resp: Denies: dyspnea GI: Denies: abdominal pain, nausea, vomiting or diarrhea : Denies: dysuria Musc: Denies: neck pain or back pain Skin/Breast: Denies: rash Neuro: Denies: headache(s) Psych: Reports: depression and suicidal ideation Yosef/Lymph: Denies: easy bruising All/Imm: Denies: urticaria PFSH ED PFSH: Medical History COPD (chronic obstructive pulmonary disease) Social History Smoking and tobacco status: current every day smoker Physical Exam Const: COMMON NORMALS: no acute distress, patient oriented x3 and healthy appearing HENMT: COMMON NORMALS: normocephalic and atraumatic HEAD & SCALP: normocephalic and atraumatic Eye: COMMON NORMALS: Equal, round and reactive pupils present and EOMs intact bilaterally PUPIL: Yes Equal, round and reactive pupils present Neck/C-Spine: COMMON NORMALS: full ROM and supple Chest: COMMONS NORMALS: normal inspection of the chest and normal palpation of entire chest wall Resp: COMMON NORMALS: normal respiratory effort, No retractions, No use of accessory muscles and clear to auscultation bilaterally AUSCULTATION: clear to auscultation bilaterally Cardio: COMMON NORMALS: regular rate, regular rhythm and No murmurs present (Cardio) RATE: regular rate RHYTHM: regular rhythm GI: COMMON NORMALS: Normal to inspection, nondistended, normoactive bowel sounds present, Soft to palpation, non-tender and no masses PALPATION: Yes Soft to palpation Extremity: COMMON NORMALS: normal to inspection and full ROM Neuro: COMMON NORMALS: patient oriented x3, moves all extremities and no focal motor deficits Psych: COMMON NORMALS: mental status grossly normal, Normal thought process present and cooperative THOUGHT PROCESS: Normal thought process present THOUGHT CONTENT: Yes Suicidality present Skin: COMMON NORMALS: no rashes or lesions noted and no wounds GENERAL SKIN EXAM: no rashes or lesions noted Course Vital Signs: Vital signs: Vital Signs Temperature 98.6 F 12/28/21 19:14 Pulse Rate 90 12/28/21 19:14 Respiratory Rate 18 12/28/21 19:14 Blood Pressure 127/78 12/28/21 19:14 Pulse Oximetry 95 12/28/21 19:14 Oxygen Delivery Me thod 12/28/21 19:14 [facility] - Psych Medical Decision Making Patient presents for suicidal ideation I did speak to Dr. Mott who agrees to admit patient he is medically cleared will admit to the psych rubio. He is voluntary. Discharge Plan Discharge Patient Disposition: Admitted As Inpatient Clinical Impression: Suicidal ideation, Methamphetamine use disorder, severe Condition: Stable Coding Level of Care Code ED Correction Lieutenant for Nicholas Fwd Exam Comprehensive
[2021-12-28 20:13] LABS: Amphetamines Screen Urine Negative (Negative); Barbiturates Screen Urine Negative (Negative); Benzodiazepines Screen Urine Negative (Negative); Cocaine Screen Urine Negative (Negative); Opiate Screen Urine Negative (Negative); PCP Screen Urine Negative (Negative); THC Screen Urine Negative (Negative)
[2021-12-28 21:12] VITALS: RESP 16; O2SAT 97
[2021-12-28 21:13] LABS: Basophils # 0.1 10^3/uL (0.0-0.1); Basophils % 0.7 %; Eosinophils # 0.4 10^3/uL (0.0-0.8); Eosinophils % 3.8 %; Hematocrit 44.9 % (42.0-52.0); Hemoglobin 14.1 g/dL (11.7-16.6); Lymphocytes # 3.7 10^3/uL (0.8-4.8); Lymphocytes % 40.2 %; Mean Corpuscular HGB Conc 31.4 g/dL (30.0-36.0); Mean Corpuscular Hemoglobin 28.4 pg (28.0-34.0); Mean Corpuscular Volume 90.3 fl (80-94); Mean Platelet Volume 10.5 fL (7.4-10.4); Monocytes # 0.5 10^3/uL (0.2-0.9); Monocytes % 5.8 %; Neutrophils # 4.51 10^3/uL (1.8-7.7); Neutrophils % 49.1 %; Nucleated Red Blood Cells % 0 %; Platelet Count 262 10^3/cmm (130-400); Red Blood Count 4.97 10^6/uL (4.1-5.3); White Blood Count 9.2 10^3/uL (4.0-10.0)
[2021-12-28 21:22] LABS: Alanine Aminotransferase 17 U/L (0-41); Alkaline Phosphatase 93 U/L (40-130); Anion Gap 13.2 (5-19); Aspartate Amino Transferase 20 U/L (0-40); Blood Urea Nitrogen 26 mg/dL (6-20); Calcium 9.2 mg/dL (8.5-10.5); Carbon Dioxide 27 mmol/L (22-29); Chloride 104 mmol/L (98-107); Globulin 2.7 g/dL (1.3-4.6); Glucose 99 mg/dL (65-115); Osmolality Calculated 295 mOsm/kg (285-295); Potassium 4.2 mmol/L (3.5-5.1); Sodium 140 mmol/L (136-145); Total Bilirubin 0.6 mg/dL (0.15-1.2); Total Protein 6.7 g/dL (6.6-8.7)
[2021-12-28 21:23] LABS: Acetaminophen < 5.0 ug/mL (10-30); Alcohol Level < 10 mg/dL (0-10); Salicylate < 0.3 mg/dL (3-10)
[2021-12-28 21:38] VITALS: BP 109/65; PULSE 87; RESP 17; TEMP 36.6; O2SAT 95
--- NOTE | 2021-12-28 21:45 | PC.NURSE ---
36 yr.old male admitted to room 124 with dx of SI. Patient arrived to unit via w/c from ED accompanied by RN and security. Patient is alert and Ox3. Mood is calm and cooperative. Denies any current thoughts of SI/HI. Did state he has been depressed lately and suicidal before coming to hospital. Patient is homeless.Contracted for safety. No c/o pain voiced. Denies AVH but appears pre-occupied during assessment. Patient is voluntary. Skin assessment completed with no issues or contraband found. Unit rules and orientation to unit reviewed. Voiced understanding. Patient offered snack and drinks. Escorted to room after.
[2021-12-29 06:00] VITALS: BP 117/69; PULSE 81; RESP 16; TEMP 36.5; O2SAT 94
--- NOTE | 2021-12-29 11:32 | W.PM.NPUH&PS ---
Providers/Chief Complaint Admitting Physician: Bobby Mott MD Chief Complaint: SI HPI NPU History of Present Illness Radhames Baker is a 36 year old male who presented to the emergency department with the following report: Chief Complaint: Psychiatric Symptoms Stated Complaint: SI Time Seen by Provider: 12/28/21 19:11 Source: patient Mode of arrival: ambulatory Limitations: no limitations History of Present Illness: 36-year-old male who states that he has been having suicidal thoughts he does not have a specific plan but states he has had increasing depression he is currently homeless he was admitted earlier this month he has a history of meth abuse he did admit to meth use 3 days ago with he denies any worsening proving factors. Associated symptoms: Reports depression and suicidal ideaion. He was admitted to the neuropsychiatric unit for definitive treatment of those issues. He presents today reporting that he tried to get housing and get things kick started once he was discharged but that that did not work. He reported that he continued to have some issues with his addiction reporting some active use but his last methamphetamine use was 4 days ago or longer. We discussed the possibility of consideration of an antipsychotic which he had been resistant to previously discussing the risks, benefits and alternatives of Abilify and Invega and he understood and agreed to consider taking one of them. Otherwise he continued to be clearly psychotic with speaking to himself while the interview was going on. He denied any substantive changes since the last visit and excerpt of his previous evaluation earlier this month is included below for context. Per his 12/16/2021 [facility] inpatient psychiatric evaluation: History of Present Illness Radhames Baker is a 36 year old male who presented to the emergency department with the following report: Chief Complaint: Psychiatric Symptoms Stated Complaint: psych eval Time Seen by Provider: 12/15/21 19:13 History of Present Illness:?? Mr. Baker is a 36-year-old gentleman with history of substance abuse and reported longstanding history of anxiety depression as well as ADHD presenting to the emergency department for psychiatric evaluation.? He has not had recent psychiatric care nor is he on psychiatric medications.? Apparently he was staying at a jail and they were performing routine drug testing on him and he endorsed to them that he would likely test positive for amphetamines and therefore was kicked out.? He presents today with a friend from the jail concerned about his mental status.? He does report intermittent thoughts of suicide as well as possible hallucinations though he has difficulty characterizing some of it.? Denies actual attempt to harm himself or changes in medical health. He was admitted to the neuropsychiatric unit for definitive treatment of those issues.? He presents today initially unarousable but then later able to get up and have a conversation of limited utility.? He was either unable or unwilling to give historical data other than what was already known.? Specifically that he had been at [facility] and that reportedly they asked him to take a drug test that he denies he would be positive on and that they reportedly kicked him out.? He came here reporting that he wanted to get assistance with his mental health challenges.? However after being very resistant to questions he began focusing on when he could be discharged.? Initially talked about being open to starting antipsychotic but then he began focusing on the fact that he has items outside of the hospital that he has to get.? When asked what he would do after he got those items he reported he would return to [facility] We discussed the fact that [facility] generally does not allow people who have been dismissed to return for 1 year.? He then reported that after he got his things he would be able to figure things out.? 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 He was convinced that he would be able to figure out an alternative arrangement that would not involve being homeless or on the streets even though he acknowledged that he had no money or access to money.? We discussed him sleeping at today and thus discussing tomorrow given that it was unclear whether he would be safe for discharge.? He was agreeable to stay for the night but was very adamant about wanting to be discharged tomorrow.? Attempts at psychosocial history were met with resistance or answers vet diagnosis due to his disorganization. Meds NPU Home Medications Medication Instructions Recorded Confirmed Last Taken Type No Known Home Medications 12/15/21 12/28/21 Unknown History Allergies Allergy/AdvReac Type Severity Reaction Status Date / Time No Known Allergies Allergy Verified 03/20/21 15:38 PFS NPU PFS: Medical History COPD (chronic obstructive pulmonary disease) Social History Smoking and tobacco status: current every day smoker Mental Status Exam MSE Comments: This is a slender white male in hospital scrubs with limited grooming and eye contact. No abnormal movements. Cooperative with exam in mild distress. Speech was normal rate and decreased volume with episodes of conversation that were intended for someone who was not presently in the room. Mood described as okay, affect odd. Thought process linear but at times disorganized. Thought content: Patient denied suicidal or homicidal ideation, there were no delusions reported but clear paranoia existed, he denied auditory or visual hallucinations but was speaking to himself while sitting there in between questions by this sign writer letterer or painter. Attention and concentration were mostly intact and memory seemed unreliable but none were formally tested. He was alert and oriented x3. Insight and judgment and impulse control seemed limited to impaired. Vitals/I&O/Wt Last Vital Signs Temp 97.7 F 12/29/21 06:00 Pulse 81 12/29/21 06:00 Resp 16 12/29/21 06:00 BP 117/69 12/29/21 06:00 Pulse Ox 94 12/29/21 06:00 O2 Del Method 12/29/21 06:00 Weight last 48 hrs Weight 73.119 kg Data NPU 12/28/21 20:55 12/28/21 20:55 A&P Assessment and plan (1) Suicidal ideation: (2) Drug-induced psychotic disorder: (3) COPD (chronic obstructive pulmonary disease): (4) Psychosis: (5) Methamphetamine use disorder, severe: Plan This is a 36-year-old white male with history of psychosis as well as active addiction who presents homeless and disorganized but with limited interest in considering medications and treatment. It is unclear whether this is substance-induced versus schizophrenia versus exacerbation. 1. Review medications. Offer antipsychotic. 2. Continue to continue to check for safety. 3. Encourage individual, group vet and therapy. 4. Encourage sober living treatment after discharge at the highest level of care to which he is willing to commit. 5. Consider 96-hour hold. Involuntary Hold Information 96 Hour Hold: 96 Hour Involuntary Admission: No Attestations NPU Medical Necessity Statement*: Inpatient hospitalization is medically necessary and the clinically appropriate intervention at this time. We will monitor/start medications and make changes as indicated. He will be in the hospital over 2 midnights. Likely length of stay 4 to 6 days. Coding Level of Care Code Acute Neuroscience Specialist for g Fwd Diagnoses Suicidal ideation R45.851 Drug-induced psychotic disorder F19.959 COPD (chronic obstructive pulmonary disease) J44.9 Psychosis F29 Methamphetamine use disorder, 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
[2021-12-29 14:00] VITALS: BP 106/59; PULSE 81; RESP 15; TEMP 36.4; O2SAT 96
[2021-12-29 19:38] VITALS: BP 106/57; PULSE 73; RESP 17; TEMP 36.3; O2SAT 95
[2021-12-29] MEDS: trazodone 50 mg Tablet PO (20:03)
[2021-12-30 06:00] VITALS: BP 113/53; PULSE 84; RESP 16; TEMP 36.5; O2SAT 95
--- NOTE | 2021-12-30 10:45 | W.PM.NPUPNS ---
Subjective NPU Subjective: Patient presented today reporting and openness to a trial of medication. He denied previous trials of Abilify or Invega. We discussed the risks,benefits and alternatives of starting invega 6 mg po qdaily and he understood and agreed to proceed as is documented in this note. Mental Status Exam MSE Comments: This is a slender white male in hospital scrubs with limited grooming and eye contact. No abnormal movements. Cooperative with exam in mild distress. Speech was normal rate and decreased volume with episodes of conversation that were intended for someone who was not presently in the room. Mood described as all right, affect odd. Thought process linear but at times disorganized. Thought content: Patient denied suicidal or homicidal ideation, there were no delusions reported but clear paranoia existed, he denied auditory or visual hallucinations but was speaking to himself while sitting there in between questions by this securities underwriter. Attention and concentration were mostly intact and memory seemed unreliable but none were formally tested. He was alert and oriented x3. Insight and judgment and impulse control seemed limited to impaired. Vitals/I&O/Wt Last Vital Signs Temp 97.7 F 12/30/21 06:00 Pulse 84 12/30/21 06:00 Resp 16 12/30/21 06:00 BP 113/53 12/30/21 06:00 Pulse Ox 95 12/30/21 06:00 O2 Del Method 12/29/21 06:00 Weight last 48 hrs Weight 73.119 kg Data NPU 12/28/21 20:55 12/28/21 20:55 A&P Assessment and plan (1) Suicidal ideation: (2) Drug-induced psychotic disorder: (3) COPD (chronic obstructive pulmonary disease): (4) Psychosis: (5) Methamphetamine use disorder, severe: Plan This is a 36-year-old white male with history of psychosis as well as active addiction who presents homeless and disorganized but with limited interest in considering medications and treatment. It is unclear whether this is substance-induced versus schizophrenia versus exacerbation. 1. Review medications. Start Invega 6 mg po qdaily.. 2. Continue to continue to check for safety. 3. Encourage individual, group vet and therapy. 4. Encourage sober living treatment after discharge at the highest level of care to which he is willing to commit. 5. Consider 96-hour hold. Involuntary Hold Information 96 Hour Hold: 96 Hour Involuntary Admission: No Attestations NPU Medical Necessity Statement*: Inpatient hospitalization is medically necessary and the clinically appropriate intervention at this time. We will monitor/start medications and make changes as indicated. Likely length of stay 3-5 days. Coding Level of Care Code Acute Station Air Traffic Control Specialist for [facility] Fwd Diagnoses Suicidal ideation R45.851 Drug-induced psychotic disorder F19.959 COPD (chronic obstructive pulmonary disease) J44.9 Psychosis F29 Methamphetamine use disorder, 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
[2021-12-30 14:00] VITALS: BP 105/69; PULSE 94; RESP 18; TEMP 36.3; O2SAT 96
[2021-12-30] MEDS: paliperidone ER 6 mg Tablet PO (14:38)
[2021-12-30 20:41] VITALS: BP 112/68; PULSE 108; RESP 18; TEMP 36.6; O2SAT 98
[2021-12-31 06:00] VITALS: BP 112/68; PULSE 108; RESP 18; TEMP 36.6; O2SAT 98; BMI 23.8
[2021-12-31 06:34] VITALS: BP 121/71; PULSE 76; RESP 18; TEMP 36.3; O2SAT 97
[2021-12-31] MEDS: paliperidone ER 6 mg Tablet PO (08:05)
[2021-12-31 14:00] VITALS: BP 121/70; PULSE 97; RESP 18; TEMP 36.3; O2SAT 97
--- NOTE | 2021-12-31 15:20 | W.PM.NPUPNS ---
Subjective NPU Subjective: 36-year-old male admitted with suicidal ideation with a past history of active methamphetamine abuse. Patient had reported that he continued to use methamphetamine and states that he was currently homeless. He continued to report suicidal thoughts. Staff notes the patient had continued to isolate himself on the milieu. He reported no side effects from his Invega today. Patient had endorsed some feelings of hopelessness and states that he had definitely been in need of receiving further treatment but had admitted to having refused to consider medications on his last hospitalization earlier this month. Mental Status Exam MSE Comments: This is a slender white male in hospital scrubs with poor grooming and fletting eye contact. No abnormal movements. Cooperative with exam in mild distress. Speech was normal rate and decreased volume, Mood described as okay. His affect was odd and peculiar. Thought process was tangential. Thought content: Patient denied suicidal or homicidal ideation. There was evidence of no delusions. There was no evidence of paranoia. He did appear to be responding to internal stimuli despite denying auditory hallucinations. . Attention and concentration were poor. . He was alert and oriented x3. Insight and judgment and impulse control seemed limited to impaired. Vitals/I&O/Wt Last Vital Signs Temp 97.4 F L 12/31/21 14:00 Pulse 97 12/31/21 14:00 Resp 18 12/31/21 14:00 BP 121/70 12/31/21 14:00 Pulse Ox 97 12/31/21 14:00 O2 Del Method 12/29/21 06:00 Weight last 48 hrs Weight 73.119 kg Data NPU 12/28/21 20:55 12/28/21 20:55 A&P Assessment and plan (1) Drug-induced psychotic disorder: (2) Suicidal ideation: (3) COPD (chronic obstructive pulmonary disease): (4) Psychosis: (5) Methamphetamine use disorder, severe: Plan This is a 36-year-old white male with history of psychosis as well as active addiction who presents homeless and disorganized but with limited interest in considering medications and treatment. It is unclear whether this is substance-induced versus schizophrenia versus exacerbation. 1. Review medications. Continue Invega 6 mg po qdaily.. 2. Continue to continue to check for safety. 3. Encourage individual, group vet and therapy. 4. Encourage sober living treatment after discharge at the highest level of care to which he is willing to commit. 5. Consider 96-hour hold. Involuntary Hold Information 96 Hour Hold: 96 Hour Involuntary Admission: No Attestations NPU Medical Necessity Statement*: Inpatient hospitalization is medically necessary and the clinically appropriate intervention at this time. We will monitor/start medications and make changes as indicated. Likely length of stay 3-5 days. Coding Level of Care Code Established Pt Acute Computer Programmer Chief for [facility] Fwd Patient Type Established History Problem Focused Exam Problem Focused Medical Decision Making Straight Forward Diagnoses Drug-induced psychotic disorder F19.959 Suicidal ideation R45.851 COPD (chronic obstructive pulmonary disease) J44.9 Psychosis F29 Methamphetamine use disorder, 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
[2021-12-31 20:03] VITALS: BP 114/69; PULSE 94; RESP 18; TEMP 36.4; O2SAT 96
[2021-12-31] MEDS: trazodone 50 mg Tablet PO (20:07)
[2022-01-01 06:00] VITALS: BP 120/76; PULSE 78; RESP 18; TEMP 36.5; O2SAT 96
[2022-01-01] MEDS: paliperidone ER 6 mg Tablet PO (08:37)
--- NOTE | 2022-01-01 12:59 | W.PM.NPUPNS ---
Subjective NPU Subjective: 36-year-old male admitted with suicidal ideation with a past history of active methamphetamine abuse. Patient reported no worsening mood. He reports no side effects from the paliperidone. He reported no feelings of hopelessness. Patient continued to appear to walk through the hallways of the milieu while talking to himself. He had minimized any hallucinations. He had minimized the use of methamphetamine as a potential problem that had led to his hospitalization. . Mental Status Exam MSE Comments: This is a slender white male in hospital scrubs with poor grooming and fletting eye contact. No abnormal movements. Cooperative with exam in mild distress. Speech was normal rate and normal volume, Mood described as okay. His affect was odd and peculiar. Thought process was more linear. Thought content: Patient denied suicidal or homicidal ideation. There is no evidence of delusions or overvalued ideas. there was no evidence of paranoia. He did appear to be responding to internal stimuli despite denying auditory hallucinations. Attention and concentration were poor. . He was alert and oriented x3. Insight and judgment and impulse control seemed limited to impaired. Vitals/I&O/Wt Last Vital Signs Temp 97.7 F 01/01/22 06:00 Pulse 78 01/01/22 06:00 Resp 18 01/01/22 06:00 BP 120/76 01/01/22 06:00 Pulse Ox 96 01/01/22 06:00 O2 Del Method 12/29/21 06:00 Weight last 48 hrs Weight 73.119 kg Data NPU 12/28/21 20:55 12/28/21 20:55 A&P Assessment and plan (1) Drug-induced psychotic disorder: (2) Suicidal ideation: (3) COPD (chronic obstructive pulmonary disease): (4) Psychosis: (5) Methamphetamine use disorder, severe: Plan This is a 36-year-old white male with history of psychosis as well as active addiction who presents homeless and disorganized but with limited interest in considering medications and treatment. It is unclear whether this is substance-induced versus schizophrenia versus exacerbation. 1. Review medications. Continue Invega 6 mg po qdaily.. 2. Continue to continue to check for safety. 3. Encourage individual, group vet and therapy. 4. Encourage sober living treatment after discharge at the highest level of care to which he is willing to commit. 5. Consider 96-hour hold. Involuntary Hold Information 96 Hour Hold: 96 Hour Involuntary Admission: No Attestations NPU Medical Necessity Statement*: Inpatient hospitalization is medically necessary and the clinically appropriate intervention at this time. We will monitor/start medications and make changes as indicated. Likely length of stay 3-5 days. Coding Level of Care Code Established Pt Acute Oil Burner Repairer for [facility] Lema Patient Type Established History Problem Focused Exam Problem Focused Medical Decision Making Straight Forward Diagnoses Drug-induced psychotic disorder F19.959 Suicidal ideation R45.851 COPD (chronic obstructive pulmonary disease) J44.9 Psychosis F29 Methamphetamine use disorder, 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
[2022-01-01 14:00] VITALS: BP 104/63; PULSE 100; RESP 18; TEMP 36.6; O2SAT 97
[2022-01-01 19:59] VITALS: BP 114/73; PULSE 98; RESP 18; TEMP 36.6; O2SAT 96
[2022-01-01] MEDS: trazodone 50 mg Tablet PO (20:48)
[2022-01-02 06:00] VITALS: BP 108/70; PULSE 80; RESP 16; TEMP 36.6; O2SAT 96
[2022-01-02 08:17] VITALS: BP 108/70; PULSE 80; RESP 16; TEMP 36.6; O2SAT 96
--- NOTE | 2022-01-02 08:18 | W.PM.NPUDCS ---
Diagnoses at Discharge Discharge Diagnosis (1) Drug-induced psychotic disorder: Status: Acute (2) Suicidal ideation: Status: Resolved (3) COPD (chronic obstructive pulmonary disease): Status: Acute (4) Psychosis: Status: Acute (5) Methamphetamine use disorder, severe: Status: Acute Reason for Visit Reason for Visit: SI Brief History: History of Present Illness Radhames Baker is a 36 year old male who presented to the emergency department with the following report: Chief Complaint: Psychiatric Symptoms Stated Complaint: SI Time Seen by Provider: 12/28/21 19:11 Source: patient Mode of arrival: ambulatory Limitations: no limitations History of Present Illness:?? 36-year-old male who states that he has been having suicidal thoughts he does not have a specific plan but states he has had increasing depression he is currently homeless he was admitted earlier this month he has a history of meth abuse he did admit to meth use 3 days ago with he denies any worsening proving factors. Associated symptoms: Reports depression and suicidal ideaion. He was admitted to the neuropsychiatric unit for definitive treatment of those issues.? He presents today reporting that he tried to get housing and get things kick started once he was discharged but that that did not work. He reported that he continued to have some issues with his addiction reporting some active use but his last methamphetamine use was 4 days ago or longer.? We discussed the possibility of consideration of an antipsychotic which he had been resistant to previously discussing the risks, benefits and alternatives of Abilify and Invega and he understood and agreed to consider taking one of them.? Otherwise he continued to be clearly psychotic with speaking to himself while the interview was going on.? He denied any substantive changes since the last visit and excerpt of his previous evaluation earlier this month is included below for context. Per his 12/16/2021 [facility] inpatient psychiatric evaluation: History of Present Illness Radhames Baker is a 36 year old male who presented to the emergency department with the following report: Chief Complaint: Psychiatric Symptoms Stated Complaint: psych eval Time Seen by Provider: 12/15/21 19:13 History of Present Illness:?? Mr. Baker is a 36-year-old gentleman with history of substance abuse and reported longstanding history of anxiety depression as well as ADHD presenting to the emergency department for psychiatric evaluation.? He has not had recent psychiatric care nor is he on psychiatric medications.? Apparently [facility] a [facility] and they were performing routine drug testing on him and he endorsed to them that he would likely test positive for amphetamines and therefore was kicked out.? He presents today with a friend from the [facility] concerned about his mental status.? He does report intermittent thoughts of suicide as well as possible hallucinations though he has difficulty characterizing some of it.? Denies actual attempt to harm himself or changes in medical health. He was admitted to the neuropsychiatric unit for definitive treatment of those issues.? He presents today initially unarousable but then later able to get up and have a conversation of limited utility.? He was either unable or unwilling to give historical data other than what was already known.? Specifically that he had been at [facility] and that reportedly they asked him to take a drug test that he denies he would be positive on and that they reportedly kicked him out.? He came here reporting that he wanted to get assistance with his mental health challenges.? However after being very resistant to questions he began focusing on when he could be discharged.? Initially talked about being open to starting antipsychotic but then he began focusing on the fact that he has items outside of the hospital that he has to get.? When asked what he would do after he got those items he reported he would return to [facility].? We discussed the fact that [facility] generally does not allow people who have been dismissed to return for 1 year.? He then reported that after he got his things he would be able to figure things out.? 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 He was convinced that he would be able to figure out an alternative arrangement that would not involve being homeless or on the streets even though he acknowledged that he had no money or access to money.? We discussed him sleeping at today and thus discussing tomorrow given that it was unclear whether he would be safe for discharge.? He was agreeable to stay for the night but was very adamant about wanting to be discharged tomorrow.? Attempts at psychosocial history were met with resistance or answers vet diagnosis due to his disorganization. Hospital Course Hospital Course Discharge Summary: During the hospitalization, patient had routine laboratory studies which were within normal limits except for few outliers.? Additionally there was a general medical evaluation which was also within normal limits and revealed no new acute processes. The patient responded well to Paliperidone with his psychotic symptoms resolving. At the time of discharge, lethality was denied and psychosis was resolving.? Mood and anxiety were well managed.? Patient endorsed a plan to avoid all drugs of abuse and follow-up with the aftercare recommendations of the treatment team.? Patient was evaluated and deemed to be absent credible lethality, and had achieved the maximum benefit from an inpatient hospitalization, so was discharged. Involuntary Hold Information 96 Hour Hold: 96 Hour Involuntary Admission: No Mental Status Exam MSE Comments: This is a slender white male in hospital scrubs with poor grooming and fleeting eye contact. No abnormal movements. Cooperative with exam and in no acute distress. Speech was normal rate and normal volume, Mood described as okay. His affect was odd and peculiar. Thought process was more linear. Thought content: Patient denied suicidal or homicidal ideation. There is no evidence of delusions or overvalued ideas. there was no evidence of paranoia. He did not appear to be responding to internal stimuli. Attention and concentration were improving. He was alert and oriented x3. Insight was limited and judgment and impulse control seemed to be improving. Discharge Data Studies Completed and Pending: Laboratory Results WBC 9.2 10^3/uL (4.0- 10.0) 12/28/21 20:55 RBC 4.97 10^6/uL (4.1 -5.3) 12/28/21 20:55 Hgb 14.1 g/dL (11.7-1 6.6) 12/28/21 20:55 Hct 44.9 % (42.0-52.0 ) 12/28/21 20:55 MCV 90.3 fl (80-94) 12/28/21 20:55 MCH 28.4 pg (28.0-34. 0) 12/28/21 20:55 MCHC 31.4 g/dL (30.0-3 6.0) 12/28/21 20:55 RDW 13.0 % (12.1-15.1 ) 12/28/21 20:55 Plt Count 262 10^3/cmm (130 -400) 12/28/21 20:55 MPV 10.5 fL (7.4-10.4 ) H 12/28/21 20:55 Neut % (Auto) 49.1 % 12/28/21 20:55 Lymph % (Auto) 40.2 % 12/28/21 20:55 [place] % (Auto) 5.8 % 12/28/21 20:55 Eos % (Auto) 3.8 % 12/28/21 20:55 Baso % (Auto) 0.7 % 12/28/21 20:55 Neut # (Auto) 4.51 10^3/uL (1.8 -7.7) 12/28/21 20:55 Lymph # (Auto) 3.7 10^3/uL (0.8- 4.8) 12/28/21 20:55 [place] # (Auto) 0.5 10^3/uL (0.2- 0.9) 12/28/21 20:55 Eos # (Auto) 0.4 10^3/uL (0.0- 0.8) 12/28/21 20:55 Baso # (Auto) 0.1 10^3/uL (0.0- 0.1) 12/28/21 20:55 Nucleated RBC % (a uto) 0 % 12/28/21 20:55 Nucleated RBCs # 0.0 /100WBC 12/28/21 20:55 Sodium 140 mmol/L (136-1 45) 12/28/21 20:55 Potassium 4.2 mmol/L (3.5-5 .1) 12/28/21 20:55 Chloride 104 mmol/L (98-10 7) 12/28/21 20:55 Carbon Dioxide 27 mmol/L (22-29) 12/28/21 20:55 Anion Gap 13.2 (5-19) 12/28/21 20:55 BUN 26 mg/dL (6-20) H 12/28/21 20:55 Creatinine 1.5 mg/dL (0.7-1. 2) H 12/28/21 20:55 GFR Calculation 53.0 mL/min (90-1 30) L 12/28/21 20:55 Glucose 99 mg/dL (65-115) 12/28/21 20:55 Calculated Osmolal ity 295 mOsm/kg (285- 295) 12/28/21 20:55 Calcium 9.2 mg/dL (8.5-10 .5) 12/28/21 20:55 Total Bilirubin 0.6 mg/dL (0.15-1 .2) 12/28/21 20:55 AST 20 U/L (0-40) 12/28/21 20:55 ALT 17 U/L (0-41) 12/28/21 20:55 Alkaline Phosphata se 93 U/L (40-130) 12/28/21 20:55 Total Protein 6.7 g/dL (6.6-8.7 ) 12/28/21 20:55 Albumin 4.0 g/dL (3.5-5.2 ) 12/28/21 20:55 Globulin 2.7 g/dL (1.3-4.6 ) 12/28/21 20:55 Salicylates < 0.3 mg/dL (3-10 ) L 12/28/21 20:55 Urine Opiates Scre en Negative ng/mL (N egative) 12/28/21 19:48 Acetaminophen < 5.0 ug/mL (10-3 0) L 12/28/21 20:55 Ur Barbiturates Sc reen Negative ng/mL (N egative) 12/28/21 19:48 Ur Phencyclidine S crn Negative ng/mL (N egative) 12/28/21 19:48 Ur Amphetamines Sc reen Negative ng/mL (N egative) 12/28/21 19:48 U Benzodiazepines Scrn Negative ng/mL (N egative) 12/28/21 19:48 Urine Cocaine Scre en Negative ng/mL (N egative) 12/28/21 19:48 U Marijuana (THC) Screen Negative ng/mL (N egative) 12/28/21 19:48 Ethyl Alcohol < 10 mg/dL (0-10) 12/28/21 20:55 Vitals: Last Vital Signs Temp 97.8 F 01/02/22 06:00 Pulse 80 01/02/22 06:00 Resp 16 01/02/22 06:00 BP 108/70 01/02/22 06:00 Pulse Ox 96 01/02/22 06:00 O2 Del Method 01/01/22 14:00 Discharge Plan Discharge Patient Disposition: Home Condition: Stable Prescriptions: New paliperidone 6 mg Tablet Extended Release 24hr 6 mg PO DAILY 30 Days Qty: 30 0RF No Action No Known Home Medications Discharge Orders: Discharge Order (Routine); Ordered 01/02/22 Ordered By: Vinnie Ellis Referrals: [facility]-Initial with Judy Carmonan [Other] - 01/10/22 12:00 pm (Appointment is 12:30pm but show 12pm for paperwork.) [facility]-Dr Valle [Other] - 02/13/22 10:40 am (The interaction will by by video) [facility] [Other] Discharge Diet: Advance as tolerated Discharge Activity: Resume usual activity Patient Instructions: Paliperidone (By mouth) (Invega), Methamphetamine Use Disorder (DC), Psychotic Disorder (DC), Opioid Safety, Suicidal Ideation Discharge Attestations NPU Time Spent in Discharge Care*: less than 30 min Coding Level of Care Code Established Pt Acute Chg FW DC note Patient Type Established History Problem Focused Exam Problem Focused Medical Decision Making Straight Forward Diagnoses Drug-induced psychotic disorder F19.959 Suicidal ideation R45.851 COPD (chronic obstructive pulmonary disease) J44.9 Psychosis F29 Methamphetamine use disorder, 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
[2022-01-02] MEDS: paliperidone ER 6 mg Tablet PO (08:44)
== END 2022-01-02 09:15 | disposition home or self-care (01) | DRG 897 ==
LOC: ER 19:20 → NP 20:24
PROVIDERS: Admitting Provider Psychiatry & Neurology Psychiatry; Emergency Provider Emergency Medicine; Visit Provider Psychiatry & Neurology Psychiatry
DX: F15.259 Other stimulant dependence with stimulant-induced psychotic disorder, unspecified (principal); R45.851 Suicidal ideations; F32.A Depression, unspecified; J44.9 Chronic obstructive pulmonary disease, unspecified; F17.200 Nicotine dependence, unspecified, uncomplicated; Z59.01 Sheltered homelessness
CPT/HCPCS: 80053; 80306; 80307; 85025; 97150; 97165; 99285

== ENCOUNTER 2022-04-03 19:09 | Emergency (ER) | payer MEDICAID, SELFPAY ==
[2022-04-03 19:10] VITALS: BP 124/70; PULSE 87; RESP 16; TEMP 36.8; O2SAT 95; BMI 25.8
--- NOTE | 2022-04-03 19:15 | ECG_ITS ---
[facility] Test Date: 2022-04-03 Pat Name: Radhames Baker Department: Room: Gender: Male Medical Science Liaison: : 1985 Requested By: Latoya Guzman Order Number: [id number] MD: Casey Magana M.D. Measurements Intervals [place] Rate: 85 P: 50 AK: 120 QRS: 59 QRSD: 100 T: 38 QT: 384 QTc: 458 Interpretive Statements SINUS RHYTHM ST ELEVATION, PROBABLY EARLY REPOLARIZATION [ST ELEVATION WITH NORMALLY INFLECTED T-WAVE] Compared to ECG 12/27/2021 20:14:31 ST (T wave) deviation now present Early repolarization now present Electronically Signed On 04-04-2022 10:27:20 ZOO CARETAKER by Casey Magana M.D. [id number] f
--- NOTE | 2022-04-03 19:19 | ED_ITS ---
HPI - Chest Pain General: Chief Complaint: Chest Pain Stated Complaint: CP Time Seen by Provider: 04/03/22 19:11 Source: patient and EMS Mode of arrival: EMS Limitations: no limitations History of Present Illness: 36-year-old male states been having chest pain over the last 2 hours he states he is also having suicidal thoughts. Patient was just released from [facility] he states that he is still depressed he denies any specific plan he denies any worsening proving factors. Associated symptoms: Deny abdominal pain, dyspnea, fever(s), nausea or vomiting Review of Systems Const: Denies: fever(s), chills, body aches or change in appetite Eyes: Denies: blurry vision or eye discomfort ENMT: Denies: throat pain or dental pain Card: Reports: chest pain Resp: Denies: dyspnea GI: Denies: abdominal pain, nausea, vomiting or diarrhea : Denies: dysuria Musc: Denies: neck pain or back pain Skin/Breast: Denies: rash Neuro: Denies: headache(s) Psych: Reports: suicidal ideation Yosef/Lymph: Denies: easy bruising All/Imm: Denies: urticaria PFSH ED PFSH: Medical History COPD (chronic obstructive pulmonary disease) Social History Smoking and tobacco status: current every day smoker Physical Exam Const: COMMON NORMALS: no acute distress, patient oriented x3 and healthy appearing HENMT: COMMON NORMALS: normocephalic and atraumatic HEAD & SCALP: normocephalic and atraumatic Eye: COMMON NORMALS: Equal, round and reactive pupils present and EOMs intact bilaterally PUPIL: Yes Equal, round and reactive pupils present Neck/C-Spine: COMMON NORMALS: full ROM and supple Chest: COMMONS NORMALS: normal inspection of the chest and normal palpation of entire chest wall Resp: COMMON NORMALS: normal respiratory effort, No retractions, No use of accessory muscles and clear to auscultation bilaterally AUSCULTATION: clear to auscultation bilaterally Cardio: COMMON NORMALS: regular rate, regular rhythm and No murmurs present (Cardio) RATE: regular rate RHYTHM: regular rhythm GI: COMMON NORMALS: Normal to inspection, nondistended, normoactive bowel sounds present, Soft to palpation, non-tender and no masses PALPATION: Yes Soft to palpation Extremity: COMMON NORMALS: normal to inspection and full ROM Neuro: COMMON NORMALS: patient oriented x3, moves all extremities and no focal motor deficits Psych: COMMON NORMALS: mental status grossly normal, Normal thought process present and cooperative THOUGHT PROCESS: Normal thought process present THOUGHT CONTENT: Yes Obsession(s) present Skin: COMMON NORMALS: no rashes or lesions noted and no wounds GENERAL SKIN EXAM: no rashes or lesions noted Course Vital Signs: Vital signs: Vital Signs Temperature 98.3 F 04/03/22 19:10 Pulse Rate 81 04/03/22 19:24 Respiratory Rate 16 04/03/22 19:24 Blood Pressure 124/70 04/03/22 19:24 Pulse Oximetry 95 04/03/22 19:24 Oxygen Delivery Me thod 04/03/22 19:24 MDM - Chest Pain Medical Decision Making Patient presents here with depression he had just left from [facility] and now does not really have a place to stay he has no suicidal plan I do not believe he is truly suicidal Dr. Mott is consulted he had spoke to [facility] and did a telepsych with William and he agrees patient's not suicidal homicidal feels he is stable for discharge we will discharge him at this time he is to follow-up with [facility] and return if worsening. Lab Data 04/03/22 19:14 04/03/22 19:14 Laboratory Results WBC 9.3 10^3/uL (4.0-10.0) 04/03/22 19:14 RBC 4.95 10^6/uL (4.1-5.3) 04/03/22 19:14 Hgb 14.0 g/dL (11.7-16.6) 04/03/22 19:14 Hct 44.2 % (42.0-52.0) 04/03/22 19:14 MCV 89.3 fl (80-94) 04/03/22 19:14 MCH 28.3 pg (28.0-34.0) 04/03/22 19:14 MCHC 31.7 g/dL (30.0-36.0) 04/03/22 19:14 RDW 13.1 % (12.1-15.1) 04/03/22 19:14 Plt Count 201 10^3/cmm (130-400) 04/03/22 19:14 MPV 10.2 fL (7.4-10.4) 04/03/22 19:14 Neut % (Auto) 57.5 % 04/03/22 19:14 Lymph % (Auto) 31.8 % 04/03/22 19:14 [place] % (Auto) 7.2 % 04/03/22 19:14 Eos % (Auto) 2.6 % 04/03/22 19:14 Baso % (Auto) 0.6 % 04/03/22 19:14 Neut # (Auto) 5.35 10^3/uL (1.8-7.7) 04/03/22 19:14 Lymph # (Auto) 3.0 10^3/uL (0.8-4.8) 04/03/22 19:14 [place] # (Auto) 0.7 10^3/uL (0.2-0.9) 04/03/22 19:14 Eos # (Auto) 0.2 10^3/uL (0.0-0.8) 04/03/22 19:14 Baso # (Auto) 0.1 10^3/uL (0.0-0.1) 04/03/22 19:14 Nucleated RBC % (auto) 0 % 04/03/22 19:14 Nucleated RBCs # 0.0 /100WBC 04/03/22 19:14 Sodium 138 mmol/L (136-145) 04/03/22 19:14 Potassium 3.7 mmol/L (3.5-5.1) 04/03/22 19:14 Chloride 102 mmol/L (98-107) 04/03/22 19:14 Carbon Dioxide 26 mmol/L (22-29) 04/03/22 19:14 Anion Gap 13.7 (5-19) 04/03/22 19:14 BUN 11 mg/dL (6-20) 04/03/22 19:14 Creatinine 0.9 mg/dL (0.7-1.2) 04/03/22 19:14 GFR Calculation 95.5 mL/min (90-130) 04/03/22 19:14 Glucose 145 mg/dL (65-115) H 04/03/22 19:14 Calculated Osmolality 288 mOsm/kg (285-295) 04/03/22 19:14 Calcium 8.6 mg/dL (8.5-10.5) 04/03/22 19:14 Total Bilirubin 0.5 mg/dL (0.15-1.2) 04/03/22 19:14 AST 41 U/L (0-40) H 04/03/22 19:14 ALT 15 U/L (0-41) 04/03/22 19:14 Alkaline Phosphatase 105 U/L (40-130) 04/03/22 19:14 Troponin T Baseline 8 ng/L (0-15) 04/03/22 19:14 Troponin T 120 Minute 8.32 ng/L (0-15) 04/03/22 21:00 Delta Troponin T 0.32 ABS# (0-10) 04/03/22 21:00 Total Protein 6.5 g/dL (6.6-8.7) L 04/03/22 19:14 Albumin 4.0 g/dL (3.5-5.2) 04/03/22 19:14 Globulin 2.5 g/dL (1.3-4.6) 04/03/22 19:14 Salicylates < 0.3 mg/dL (3-10) L 04/03/22 19:14 Urine Opiates Screen Negative ng/mL (Negative) 04/03/22 20:00 Acetaminophen < 5.0 ug/mL (10-30) L 04/03/22 19:14 Ur Barbiturates Screen Negative ng/mL (Negative) 04/03/22 20:00 Ur Phencyclidine Scrn Negative ng/mL (Negative) 04/03/22 20:00 Ur Amphetamines Screen Negative ng/mL (Negative) 04/03/22 20:00 U Benzodiazepines Scrn Negative ng/mL (Negative) 04/03/22 20:00 Urine Cocaine Screen Negative ng/mL (Negative) 04/03/22 20:00 U Marijuana (THC) Screen Negative ng/mL (Negative) 04/03/22 20:00 Ethyl Alcohol < 10 mg/dL (0-10) 04/03/22 19:14 EKG Data EKG 1: I personally reviewed and interpreted this EKG as follows: EKG interpretation date: 04/03/22 EKG interpretation time: 19:14 Interpretation: nsr hr [address] or t wave abnormalities qrs 100 qtc 426 Discharge Plan Discharge Patient Disposition: Home Clinical Impression: Chest pain, Depression Condition: Stable Prescriptions: No Action No Known Home Medications Discharge Orders: Discharge ED (Routine); Ordered 04/03/22 Ordered By: Latoya Guzman Discharge Diet: Advance as tolerated Discharge Activity: Resume usual activity Patient Instructions: Chest Pain (ED), Depression (ED) Coding Level of Care Code ED Survey Questionnaire Designer for Nicholas Lema
[2022-04-03 19:24] VITALS: BP 124/70; PULSE 81; RESP 16; O2SAT 95
[2022-04-03 19:28] LABS: Basophils # 0.1 10^3/uL (0.0-0.1); Basophils % 0.6 %; Eosinophils # 0.2 10^3/uL (0.0-0.8); Eosinophils % 2.6 %; Hematocrit 44.2 % (42.0-52.0); Lymphocytes % 31.8 %; Mean Corpuscular HGB Conc 31.7 g/dL (30.0-36.0); Mean Corpuscular Hemoglobin 28.3 pg (28.0-34.0); Mean Corpuscular Volume 89.3 fl (80-94); Mean Platelet Volume 10.2 fL (7.4-10.4); Monocytes # 0.7 10^3/uL (0.2-0.9); Monocytes % 7.2 %; Neutrophils # 5.35 10^3/uL (1.8-7.7); Neutrophils % 57.5 %; Nucleated Red Blood Cells % 0 %; Platelet Count 201 10^3/cmm (130-400); Red Blood Count 4.95 10^6/uL (4.1-5.3); Red Cell Distribution Width 13.1 % (12.1-15.1); White Blood Count 9.3 10^3/uL (4.0-10.0)
[2022-04-03 19:39] LABS: Troponin(5th) Baseline 8 ng/L (0-15)
[2022-04-03 19:40] LABS: Alanine Aminotransferase 15 U/L (0-41); Alkaline Phosphatase 105 U/L (40-130); Anion Gap 13.7 (5-19); Aspartate Amino Transferase 41 U/L (0-40); Blood Urea Nitrogen 11 mg/dL (6-20); Calcium 8.6 mg/dL (8.5-10.5); Carbon Dioxide 26 mmol/L (22-29); Chloride 102 mmol/L (98-107); Globulin 2.5 g/dL (1.3-4.6); Glomerular Filtration Rate 95.5 mL/min (90-130); Glucose 145 mg/dL (65-115); Osmolality Calculated 288 mOsm/kg (285-295); Potassium 3.7 mmol/L (3.5-5.1); Sodium 138 mmol/L (136-145); Total Bilirubin 0.5 mg/dL (0.15-1.2); Total Protein 6.5 g/dL (6.6-8.7)
[2022-04-03 19:42] LABS: Acetaminophen < 5.0 ug/mL (10-30); Alcohol Level < 10 mg/dL (0-10); Salicylate < 0.3 mg/dL (3-10)
[2022-04-03 20:41] LABS: Amphetamines Screen Urine Negative (Negative); Barbiturates Screen Urine Negative (Negative); Benzodiazepines Screen Urine Negative (Negative); Cocaine Screen Urine Negative (Negative); Opiate Screen Urine Negative (Negative); PCP Screen Urine Negative (Negative); THC Screen Urine Negative (Negative)
[2022-04-03 21:20] LABS: Troponin 5 2HR 8.32 ng/L (0-15)
[2022-04-03 21:36] LABS: Troponin 5 2HR Delta 0.32 ABS# (0-10)
--- NOTE | 2022-04-04 06:40 | PC.NURSE ---
Pt left home medications in [employer] vehicle. line driver returned medication to hospital. Will follow up for return to pt.
== END 2022-04-03 23:13 | disposition home or self-care (01) ==
PROVIDERS: Emergency Provider Emergency Medicine
DX: R07.9 Chest pain, unspecified (principal); F32.A Depression, unspecified; J44.9 Chronic obstructive pulmonary disease, unspecified; F17.210 Nicotine dependence, cigarettes, uncomplicated
CPT/HCPCS: 80053; 80306; 80307; 84484; 85025; 93005; 99284

== ENCOUNTER 2022-08-01 01:00 | Emergency (ER) | payer MEDICAID, SELFPAY ==
[2022-08-01 01:03] VITALS: BP 106/59; PULSE 75; RESP 16; TEMP 36.8; O2SAT 98; BMI 17.7
--- NOTE | 2022-08-01 01:11 | ED_ITS ---
HPI - Skin/Abscess/Foreign Bdy General: Chief complaint: Skin/Abscess/Foreign Body Stated complaint: MHE Time Seen by Provider: 08/01/22 01:07 Source: patient and police Mode of arrival: other (police) Limitations: no limitations History of Present Illness: 37-year-old male is brought here by police that found him in bed in house and he could not be in that. He told them that he had bunch of insect bites to his arms also told him that he is sick being homeless will be brought up here for a place to stay. He states he has some mild depression he denies any suicidality or homicidality does have a rash to his arms states quite pruritic he denies any pain denies any worsening proving factors. Associated symptoms: Deny chills, fever(s), nausea or vomiting Review of Systems Const: Denies: fever(s), chills, body aches or change in appetite ENMT: Denies: throat pain or dental pain Card: Denies: chest pain Resp: Denies: dyspnea GI: Denies: abdominal pain, nausea, vomiting or diarrhea Musc: Denies: neck pain or back pain Skin/Breast: Reports: rash and pruritus Neuro: Denies: headache(s) PFSH ED PFSH: Medical History COPD (chronic obstructive pulmonary disease) Social History Smoking and tobacco status: current every day smoker Physical Exam Const: COMMON NORMALS: no acute distress, patient oriented x3 and healthy appearing HENMT: COMMON NORMALS: normocephalic and atraumatic HEAD & SCALP: normocephalic and atraumatic Neck/C-Spine: COMMON NORMALS: full ROM and supple Chest: COMMONS NORMALS: normal inspection of the chest Resp: COMMON NORMALS: normal respiratory effort Cardio: COMMON NORMALS: regular rate, regular rhythm and No murmurs present (Cardio) RATE: regular rate RHYTHM: regular rhythm GI: INSPECTION: Yes normal to inspection Extremity: COMMON NORMALS: full ROM NARRATIVE EXTREMITY EXAM: Insect bites likely scabies to hands and arms Neuro: COMMON NORMALS: patient oriented x3, moves all extremities and no focal motor deficits Psych: COMMON NORMALS: mental status grossly normal, Normal thought process present and cooperative THOUGHT PROCESS: Normal thought process present Skin: COMMON NORMALS: no wounds Course Vital Signs: Vital signs: Vital Signs Temperature 98.2 F 08/01/22 01:03 Pulse Rate 75 08/01/22 01:03 Respiratory Rate 16 08/01/22 01:03 Blood Pressure 106/59 08/01/22 01:03 Pulse Oximetry 98 08/01/22 01:03 MDM - Skin/Abscess/Foreign Bdy Medicial Decision Making Patient presents with insect bites to his extremities possible scabies we will place him on permethrin he is not suicidal not homicidal he is stable for discharge at this time. Discharge Plan Discharge Patient Disposition: Home Clinical Impression: Eczema, Scabies Condition: Stable Prescriptions: New Elimite 5 % cream 1 applic topical Q14D Qty: 60 0RF Rx Instructions: apply second treatment 14 days after first treatment if live lice remain Discharge Orders: Discharge ED (Routine); Ordered 08/01/22 Ordered By: Latoya Guzman Discharge Diet: Advance as tolerated Discharge Activity: Resume usual activity Patient Instructions: Scabies (ED) Coding Level of Care Code ED Inspector Government Property for Nicholas Lema
--- NOTE | 2022-08-04 11:33 | DCPLANNER ---
Patient was called due to no primary care physician - no answer at this time, a voicemail was left for patient to return call.
== END 2022-08-01 01:23 | disposition home or self-care (01) ==
PROVIDERS: Emergency Provider Emergency Medicine
DX: B86 Scabies (principal); L30.9 Dermatitis, unspecified
CPT/HCPCS: 99283

== ENCOUNTER 2022-08-06 21:15 | Emergency (ER) | payer MEDICAID, SELFPAY ==
[2022-08-06 21:17] VITALS: BP 110/63; PULSE 87; RESP 16; TEMP 36.3; O2SAT 98; BMI 19.2
--- NOTE | 2022-08-06 21:34 | W.ED.WOUNDLC ---
HPI - Wound/Laceration General: Chief Complaint: Wound/Laceration Stated Complaint: thinks bugs inside him Time Seen by Provider: 08/06/22 21:16 Source: patient Mode of arrival: ambulatory Limitations: no limitations History of Present Illness: 37-year-old male who had seen little over a week ago and had a rash that time appeared to be scabies did write him permethrin cream he had never filled it. He states that he has had more wounds on his legs and he is concerned. Had some pain and some pruritus he denies any fevers denies any worsening proving factors. Associated symptoms: Denies chills, fever(s), nausea or vomiting Review of Systems Const: Denies: fever(s) or chills Eyes: Denies: eye discomfort ENMT: Denies: throat pain or dental pain Card: Denies: chest pain Resp: Denies: dyspnea GI: Denies: abdominal pain, nausea, vomiting or diarrhea Musc: Denies: neck pain or back pain Skin/Breast: Reports: rash Neuro: Denies: headache(s) PFSH ED PFSH: Medical History COPD (chronic obstructive pulmonary disease) Social History Smoking and tobacco status: current every day smoker Physical Exam Const: COMMON NORMALS: no acute distress and patient oriented x3 HENMT: COMMON NORMALS: normocephalic HEAD & SCALP: normocephalic Eye: COMMON NORMALS: conjunctivae normal CONJUNCTIVA: Yes conjunctivae normal Neck/C-Spine: COMMON NORMALS: supple Chest: COMMONS NORMALS: normal inspection of the chest and normal palpation of entire chest wall Resp: COMMON NORMALS: normal respiratory effort Cardio: COMMON NORMALS: regular rate and regular rhythm RATE: regular rate RHYTHM: regular rhythm GI: COMMON NORMALS: Normal to inspection, nondistended, normoactive bowel sounds present Extremity: OTHER: rash to legs arms and hands c/w scabies Neuro: COMMON NORMALS: patient oriented x3 Psych: COMMON NORMALS: mental status grossly normal Skin: NARRATIVE SKIN EXAM: rash to legs arms and hands c/w scabie Course Vital Signs: Vital signs: Vital Signs Temperature 97.3 F L 06/26/23 21:17 Pulse Rate 87 08/06/22 21:17 Respiratory Rate 16 08/06/22 21:17 Blood Pressure 110/63 08/06/22 21:17 Pulse Oximetry 98 08/06/22 21:17 Oxygen Delivery Me thod Room Air 08/06/22 21:17 MDM - Wound/Laceration Medical Decision Making Patient presents with rash likely scabies he is to use permethrin he has no signs of cellulitis he is stable for discharge Discharge Plan Discharge Patient Disposition: Home Clinical Impression: Scabies Condition: Stable Prescriptions: Continued permethrin [Elimite] 5 % cream 1 applic topical Q14D Qty: 60 0RF Rx Instructions: apply second treatment 14 days after first treatment if live lice remain Discharge Orders: Discharge ED (Routine); Ordered 08/06/22 Ordered By: Latoya Guzman Discharge Diet: Advance as tolerated Discharge Activity: Resume usual activity Patient Instructions: Scabies (ED) Coding Level of Care Code ED Wash Oil Pump Operator Helper for Nicholas Lema
[2022-08-06] MEDS: diphenhydrAMINE 50 mg Capsule PO (21:40)
[2022-08-06] MEDS: permethrin cream 5% 60 gm 1 APPLIC TOPICAL (21:40)
[2022-08-06 21:44] VITALS: BP 122/63; PULSE 66; RESP 14; O2SAT 99
== END 2022-08-06 21:52 | disposition home or self-care (01) ==
PROVIDERS: Emergency Provider Emergency Medicine
DX: B86 Scabies (principal); J44.9 Chronic obstructive pulmonary disease, unspecified; F17.210 Nicotine dependence, cigarettes, uncomplicated
CPT/HCPCS: 99283; Q0163

== ENCOUNTER 2022-08-09 05:52 | Emergency (ER) | payer MEDICAID, SELFPAY ==
[2022-08-09 05:54] VITALS: BP 117/63; PULSE 69; RESP 17; TEMP 37.1; O2SAT 94; BMI 19.2
--- NOTE | 2022-08-09 06:23 | W.ED.PSYCHS ---
HPI - Psych General: Chief Complaint: Psychiatric Symptoms Stated Complaint: bugs in skin Time Seen by Provider: 08/09/22 06:07 Source: patient Mode of arrival: ambulatory History of Present Illness: 37-year-old male presents to the emergency room with complaints of bugs underneath his skin. He states he has some scratches on his skin but between them he notices some black dots he is concerned he may have infection of bugs underneath the skin. He has been seen in the emergency room previously for this. Seen in December 2021 and more recently on August 01 and August 06. He was first thought to have eczema second visit he was given Elamite for scabies. He has not filled the medication. He is also complaining of slight increased productive cough but denies fever. No suicidal or homicidal ideation does admit to meth use yesterday. Relieving factors: none Exacerbating factors: none Associated psychiatric symptoms: none Associated symptoms: Reports no associated symptoms Treatments prior to arrival: none Review of Systems Const: Denies: fever(s), chills, body aches, change in appetite, fatigue or malaise ENMT: Denies: throat pain, ear or mastoid pain, nasal discharge or nasal congestion Card: Denies: chest pain, edema, dyspnea on exertion or orthopnea Resp: Reports: productive cough and wheezing; Denies: dyspnea or non-productive cough GI: Denies: abdominal pain, nausea, vomiting, hematemesis, coffee ground emesis, diarrhea, constipation, bloating, hematochezia or melena : Denies: flank pain, dysuria, urinary frequency or urinary urgency Skin/Breast: Denies: rash or pruritus PFSH ED PFSH: Medical History COPD (chronic obstructive pulmonary disease) Social History Smoking and tobacco status: current every day smoker Physical Exam Const: GENERAL APPEARANCE: cooperative and comfortable ORIENTATION/CONSCIOUSNESS: Yes awake HENMT: COMMON NORMALS: normocephalic, atraumatic and hearing grossly normal bilaterally HEAD & SCALP: normocephalic and atraumatic Resp: COMMON NORMALS: normal respiratory effort, No retractions, No use of accessory muscles and clear to auscultation bilaterally AUSCULTATION: clear to auscultation bilaterally Cardio: COMMON NORMALS: regular rate, regular rhythm and No murmurs present (Cardio) RATE: regular rate RHYTHM: regular rhythm GI: COMMON NORMALS: Soft to palpation and No hepatosplenomegaly present AUSCULTATION: Yes normoactive bowel sounds PALPATION: Yes Soft to palpation, No Tenderness to palpation present (GI), No Guarding due to palpation present (GI) and Yes No hepatosplenomegaly present Extremity: OTHER: Patient has a few excoriated areas on the extremities no other raised or indurated areas. No consistent rash on the extremities or trunk Skin: COMMON NORMALS: no rashes or lesions noted GENERAL SKIN EXAM: no rashes or lesions noted Course Vital Signs: Vital signs: Vital Signs Temperature 98.8 F 08/09/22 05:54 Pulse Rate 69 08/09/22 05:54 Respiratory Rate 17 08/09/22 05:54 Blood Pressure 117/63 08/09/22 05:54 Pulse Oximetry 94 08/09/22 05:54 Oxygen Delivery Me thod Room Air 08/09/22 05:54 MDM - Psych Medical Decision Making We will give the patient albuterol inhaler to use as needed. His auscultation of his chest is normal and do not think at this point he requires any antibiotics. Suspect the perception of skin irritations are secondary to the methamphetamine use. Abstain from methamphetamine and follow-up as needed use albuterol as needed for relief of respiratory symptoms Medical Records I reviewed the patient's medical records. Lab Data I reviewed the patient's lab results. Discharge Plan Discharge Patient Disposition: Home Clinical Impression: COPD (chronic obstructive pulmonary disease), Methamphetamine use disorder, severe Condition: Stable Prescriptions: New albuterol sulfate 90 mcg/actuation HFA aerosol inhaler 2 inh INHALATION Q4H PRN (Reason: shortness of breath or wheezing) Qty: 18 0RF No Action Elimite 5 % cream 1 applic topical Q14D Qty: 60 0RF Rx Instructions: apply second treatment 14 days after first treatment if live lice remain Discharge Orders: Discharge ED (Routine); Ordered 08/09/22 Ordered By: Natanael Boothe Patient Instructions: Opioid Safety, Pain Management Coding Level of Care Code ED Quality Engineer for Nicholas Lema
[2022-08-09 06:38] VITALS: BP 126/58; PULSE 73; RESP 18; O2SAT 95
--- NOTE | 2022-08-22 12:36 | DCPLANNER ---
Addendum entered by Sandy Blackmon 08/30/22 09:56: This appointment was cancelled Addendum entered by Sandy Blackmon 08/22/22 12:40: Patient has a follow up appointment scheduled for August at 10:[address] Knox at dermatology. Original Note: late entry - test case developer had message to schedule a follow up appointment for patient with dermatology.
== END 2022-08-09 06:43 | disposition home or self-care (01) ==
PROVIDERS: Emergency Provider Family Medicine
DX: F15.90 Other stimulant use, unspecified, uncomplicated (principal); J44.9 Chronic obstructive pulmonary disease, unspecified
CPT/HCPCS: 99283

== ENCOUNTER 2022-08-09 18:19 | Emergency (ER) | payer MEDICAID, SELFPAY ==
[2022-08-09 18:27] VITALS: BP 118/67; PULSE 81; RESP 18; O2SAT 98; BMI 18.4
--- NOTE | 2022-08-09 18:30 | XRR_ITS ---
PROCEDURE INFORMATION: Exam: XR Chest Exam date and time: 08/09/2022 6:35 PM Age: 37 years old Clinical indication: Cough TECHNIQUE: Imaging protocol: Radiologic exam of the chest. Views: 1 view. COMPARISON: CR XR chest 1V portable [id number] 12/27/2021 9:14 PM FINDINGS: Lungs: Azygos fissure. The lungs are clear. Pleural spaces: Unremarkable. No pleural effusion. No pneumothorax. Heart/Mediastinum: Unremarkable. No cardiomegaly. Bones/joints: Thoracic curvature. No visible fracture. XR/XR chest 1V portable [id number] IMPRESSION: No acute findings.
--- NOTE | 2022-08-09 18:41 | ED_ITS ---
HPI - General Adult General: Chief complaint: General Medical Stated complaint: wants a blood test, bugs in skin Time Seen by Provider: 08/09/22 18:21 Source: patient Mode of arrival: ambulatory Limitations: no limitations History of Present Illness: 37-year-old male has been seen here multiple times for feeling of bugs under his skin. He is homeless and no known drug user he did admit to meth abuse today. He had a rash is improving from I seen him the last set up is likely scabies I did put permethrin on him in here the last time but he has not done any of the creams at home. Associated symptoms: Reports rash; Deny chest pain, dyspnea, headache(s), nausea or vomiting Review of Systems Const: Denies: fever(s), chills, body aches or change in appetite Eyes: Denies: blurry vision or eye discomfort ENMT: Denies: throat pain or dental pain Card: Denies: chest pain Resp: Denies: dyspnea GI: Denies: abdominal pain, nausea or vomiting Musc: Denies: neck pain or back pain Skin/Breast: Reports: rash Neuro: Denies: headache(s) PFS ED PFSH: Medical History COPD (chronic obstructive pulmonary disease) Social History Smoking and tobacco status: current every day smoker Physical Exam Const: COMMON NORMALS: no acute distress and patient oriented x3 HENMT: COMMON NORMALS: normocephalic and atraumatic HEAD & SCALP: normocephalic and atraumatic Eye: COMMON NORMALS: conjunctivae normal CONJUNCTIVA: Yes conjunctivae normal Neck/C-Spine: COMMON NORMALS: supple Chest: COMMONS NORMALS: normal inspection of the chest Resp: COMMON NORMALS: normal respiratory effort Cardio: COMMON NORMALS: regular rate RATE: regular rate GI: INSPECTION: Yes normal to inspection Extremity: COMMON NORMALS: normal to inspection Neuro: COMMON NORMALS: patient oriented x3 Psych: COMMON NORMALS: mental status grossly normal and cooperative Skin: NARRATIVE SKIN EXAM: Rash improving to extremities Course Vital Signs: Vital signs: Vital Signs Pulse Rate 81 08/09/22 18:27 Respiratory Rate 18 06/29/23 18:27 Blood Pressure 118/67 08/09/22 18:27 Pulse Oximetry 98 08/09/22 18:27 Oxygen Delivery Me thod Room Air 08/09/22 18:27 MDM - General Adult Medical Decision Making Patient presents here with formication his rash looks better from when I saw him a week ago with the Elimite he does admit to meth use and he feels like bugs crawling on his skin is likely from his meth use had a slight cough his chest x- ray is normal he is stable for discharge Medical Records I reviewed the patient's medical records. Discharge Plan Discharge Patient Disposition: Home Clinical Impression: Methamphetamine use disorder, severe, Formication Condition: Stable Prescriptions: No Action albuterol sulfate 90 mcg/actuation HFA aerosol inhaler 2 inh INHALATION Q4H PRN (Reason: shortness of breath or wheezing) Qty: 18 0RF Elimite 5 % cream 1 applic topical Q14D Qty: 60 0RF Rx Instructions: apply second treatment 14 days after first treatment if live lice remain Discharge Orders: Discharge ED (Routine); Ordered 08/09/22 Ordered By: Latoya Guzman Discharge Diet: Advance as tolerated Discharge Activity: Resume usual activity Patient Instructions: Methamphetamine Use Disorder (ED) Coding Level of Care Code ED Clean Up Helper Banquet for Nicholas Lema
[2022-08-09 19:04] VITALS: BP 126/61; PULSE 71; RESP 16; O2SAT 97
== END 2022-08-09 19:07 | disposition home or self-care (01) ==
PROVIDERS: Emergency Provider Emergency Medicine
DX: F15.20 Other stimulant dependence, uncomplicated (principal); J44.9 Chronic obstructive pulmonary disease, unspecified; Z59.00 Homelessness unspecified
CPT/HCPCS: 71045; 99283

== ENCOUNTER 2022-08-09 21:57 | Emergency (ER) | payer MEDICAID, SELFPAY ==
[2022-08-09 22:01] VITALS: BP 105/59; PULSE 70; RESP 14; TEMP 36.4; O2SAT 99
[2022-08-09] MEDS: LORazepam 2 mg/mL INJ 1 mL IM (22:44)
[2022-08-09 22:56] LABS: Basophils # 0.1 10^3/uL (0.0-0.1); Basophils % 0.7 %; Eosinophils # 0.9 10^3/uL (0.0-0.8); Eosinophils % 7.4 %; Hemoglobin 12.8 g/dL (11.7-16.6); Lymphocytes # 4.6 10^3/uL (0.8-4.8); Lymphocytes % 36.6 %; Mean Corpuscular HGB Conc 29.8 g/dL (30.0-36.0); Mean Corpuscular Hemoglobin 27.1 pg (28.0-34.0); Mean Corpuscular Volume 90.9 fl (80-94); Mean Platelet Volume 9.6 fL (7.4-10.4); Monocytes # 0.8 10^3/uL (0.2-0.9); Monocytes % 6.3 %; Neutrophils # 6.16 10^3/uL (1.8-7.7); Neutrophils % 48.7 %; Nucleated Red Blood Cells % 0 %; Platelet Count 342 10^3/cmm (130-400); Red Blood Count 4.73 10^6/uL (4.1-5.3); Red Cell Distribution Width 13.2 % (12.1-15.1); White Blood Count 12.7 10^3/uL (4.0-10.0)
--- NOTE | 2022-08-09 23:13 | W.ED.GENADLT ---
HPI - General Adult General: Chief complaint: General Medical Stated complaint: wants blood test, black bug in skin Time Seen by Provider: 08/09/22 22:34 Source: patient Mode of arrival: ambulatory Limitations: no limitations History of Present Illness: 37-year-old male who has been seen here multiple times for feeling of bugs in his skin he has been using methamphetamines he denies any worsening improving factors. Associated symptoms: Reports rash; Deny chest pain, dyspnea, headache(s), nausea or vomiting Review of Systems Const: Denies: fever(s) or chills ENMT: Denies: throat pain or dental pain Card: Denies: chest pain Resp: Denies: dyspnea GI: Denies: abdominal pain, nausea, vomiting or diarrhea Musc: Denies: neck pain or back pain Skin/Breast: Reports: rash Neuro: Denies: headache(s) PFS ED PFSH: Medical History COPD (chronic obstructive pulmonary disease) Social History Smoking and tobacco status: current every day smoker Physical Exam Const: COMMON NORMALS: no acute distress and patient oriented x3 HENMT: COMMON NORMALS: normocephalic HEAD & SCALP: normocephalic Eye: COMMON NORMALS: conjunctivae normal CONJUNCTIVA: Yes conjunctivae normal Neck/C-Spine: COMMON NORMALS: supple Chest: COMMONS NORMALS: normal inspection of the chest Resp: COMMON NORMALS: normal respiratory effort Cardio: COMMON NORMALS: regular rate and regular rhythm RATE: regular rate RHYTHM: regular rhythm GI: INSPECTION: Yes normal to inspection Extremity: COMMON NORMALS: full ROM Neuro: COMMON NORMALS: patient oriented x3 Course Vital Signs: Vital signs: Vital Signs Temperature 97.5 F L 08/09/22 22:01 Pulse Rate 70 08/09/22 22:01 Respiratory Rate 14 08/09/22 22:01 Blood Pressure 105/59 08/09/22 22:01 Pulse Oximetry 99 08/09/22 22:01 Oxygen Delivery Me thod Room Air 08/09/22 22:01 [facility] - General Adult Medical Decision Making Patient presents here with feelings of having bugs in his skin this is likely from his meth abuse he is well-appearing here we will have him follow-up with crisis center he is stable for discharge Lab Data 08/09/22 22:47 Laboratory Results WBC 12.7 10^3/uL (4.0-10.0) H 08/09/22 22:47 RBC 4.73 10^6/uL (4.1-5.3) 08/09/22 22:47 Hgb 12.8 g/dL (11.7-16.6) 08/09/22 22:47 Hct 43.0 % (42.0-52.0) 08/09/22 22:47 MCV 90.9 fl (80-94) 08/09/22 22:47 MCH 27.1 pg (28.0-34.0) L 08/09/22 22:47 MCHC 29.8 g/dL (30.0-36.0) L 08/09/22 22:47 RDW 13.2 % (12.1-15.1) 08/09/22 22:47 Plt Count 342 10^3/cmm (130-400) 08/09/22 22:47 MPV 9.6 fL (7.4-10.4) 08/09/22 22:47 Neut % (Auto) 48.7 % 08/09/22 22:47 Lymph % (Auto) 36.6 % 08/09/22 22:47 [place] % (Auto) 6.3 % 08/09/22 22:47 Eos % (Auto) 7.4 % 08/09/22 22:47 Baso % (Auto) 0.7 % 08/09/22 22:47 Neut # (Auto) 6.16 10^3/uL (1.8-7.7) 08/09/22 22:47 Lymph # (Auto) 4.6 10^3/uL (0.8-4.8) 08/09/22 22:47 [place] # (Auto) 0.8 10^3/uL (0.2-0.9) 08/09/22 22:47 Eos # (Auto) 0.9 10^3/uL (0.0-0.8) H 08/09/22 22:47 Baso # (Auto) 0.1 10^3/uL (0.0-0.1) 08/09/22 22:47 Nucleated RBC % (auto) 0 % 08/09/22 22:47 Nucleated RBCs # 0.0 /100WBC 08/09/22 22:47 Discharge Plan Discharge Patient Disposition: Home Clinical Impression: Formication Condition: Stable Prescriptions: No Action albuterol sulfate 90 mcg/actuation HFA aerosol inhaler 2 inh INHALATION Q4H PRN (Reason: shortness of breath or wheezing) Qty: 18 0RF Elimite 5 % cream 1 applic topical Q14D Qty: 60 0RF Rx Instructions: apply second treatment 14 days after first treatment if live lice remain Discharge Orders: Discharge ED (Routine); Ordered 08/09/22 Ordered By: Latoya Guzman Discharge Diet: Advance as tolerated Discharge Activity: Resume usual activity Patient Instructions: Rash - Nonspecific Coding Level of Care Code ED Automotive Electrical Helper for Nicholas Lema
[2022-08-09 23:21] VITALS: BP 105/59; PULSE 70; RESP 14; TEMP 36.4; O2SAT 99
== END 2022-08-09 23:22 | disposition home or self-care (01) ==
PROVIDERS: Emergency Provider Emergency Medicine
DX: R20.2 Paresthesia of skin (principal)
CPT/HCPCS: 36415; 85025; 96372; 99284; J2060

== ENCOUNTER 2022-08-12 05:48 | Emergency (ER) | payer MEDICAID, SELFPAY ==
[2022-08-12 05:52] VITALS: BP 128/57; PULSE 68; RESP 16; TEMP 36.4; O2SAT 98; BMI 18.4
--- NOTE | 2022-08-12 06:05 | W.ED.GENADLT ---
HPI - General Adult General: Chief complaint: General Medical Stated complaint: feet cramping/Tingling in body Time Seen by Provider: 08/12/22 06:05 Source: patient Mode of arrival: ambulatory Limitations: no limitations History of Present Illness: 37-year-old male has been seen here multiple times he is homeless he is got a history of methamphetamine abuse. He was caught today sleeping on campus here by security when security asked him to leave he came in check to the ER he is complaining of feeling like there is bugs under his skin he has been seen for this he has no other complaints at this time Associated symptoms: Deny chest pain, dyspnea, headache(s), nausea, rash or vomiting Review of Systems Const: Denies: fever(s), chills, body aches or change in appetite Eyes: Denies: blurry vision ENMT: Denies: throat pain Card: Denies: chest pain Resp: Denies: dyspnea GI: Denies: abdominal pain, nausea, vomiting or diarrhea : Denies: dysuria Musc: Denies: neck pain or back pain Skin/Breast: Denies: rash Neuro: Denies: headache(s) PFSH ED PFSH: Medical History COPD (chronic obstructive pulmonary disease) Social History Smoking and tobacco status: current every day smoker Physical Exam Const: COMMON NORMALS: no acute distress, patient oriented x3 and healthy appearing HENMT: COMMON NORMALS: normocephalic and atraumatic HEAD & SCALP: normocephalic and atraumatic Eye: COMMON NORMALS: Equal, round and reactive pupils present and EOMs intact bilaterally PUPIL: Yes Equal, round and reactive pupils present Neck/C-Spine: COMMON NORMALS: full ROM and supple Chest: COMMONS NORMALS: normal inspection of the chest and normal palpation of entire chest wall Resp: COMMON NORMALS: normal respiratory effort, No retractions, No use of accessory muscles and clear to auscultation bilaterally AUSCULTATION: clear to auscultation bilaterally Cardio: COMMON NORMALS: regular rate, regular rhythm and No murmurs present (Cardio) RATE: regular rate RHYTHM: regular rhythm GI: COMMON NORMALS: Normal to inspection, nondistended, normoactive bowel sounds present, Soft to palpation, non-tender and no masses PALPATION: Yes Soft to palpation Extremity: COMMON NORMALS: normal to inspection and full ROM Neuro: COMMON NORMALS: patient oriented x3, moves all extremities and no focal motor deficits Psych: COMMON NORMALS: mental status grossly normal, Normal thought process present and cooperative THOUGHT PROCESS: Normal thought process present Skin: COMMON NORMALS: no rashes or lesions noted and no wounds GENERAL SKIN EXAM: no rashes or lesions noted Course Vital Signs: Vital signs: Vital Signs Temperature 97.6 F 08/12/22 06:22 Pulse Rate 68 08/12/22 06:22 Respiratory Rate 16 08/12/22 06:22 Blood Pressure 128/57 08/12/22 06:22 Pulse Oximetry 98 08/12/22 06:22 [facility] - General Adult Medical Decision Making Patient presents here with feelings of bugs crawling under her skin he also has meth abuse he is also likely malingering as he is homeless and keeps trying to sleep in the hospital Discharge Plan Discharge Patient Disposition: Home Clinical Impression: Methamphetamine use disorder, severe Condition: Stable Prescriptions: No Action albuterol sulfate 90 mcg/actuation HFA aerosol inhaler 2 inh INHALATION Q4H PRN (Reason: shortness of breath or wheezing) Qty: 18 0RF Elimite 5 % cream 1 applic topical Q14D Qty: 60 0RF Rx Instructions: apply second treatment 14 days after first treatment if live lice remain Discharge Orders: Discharge ED (Routine); Ordered 08/12/22 Ordered By: Latoya Guzman Discharge Diet: Advance as tolerated Discharge Activity: Resume usual activity Patient Instructions: Methamphetamine Use Disorder (ED) Coding Level of Care Code ED Terminal Operations Manager for Nicholas Lema
[2022-08-12 06:22] VITALS: BP 128/57; PULSE 68; RESP 16; TEMP 36.4; O2SAT 98
--- NOTE | 2022-08-12 10:01 | ECG_ITS ---
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 Measurements Intervals [place] Rate: 78 P: 86 MT: 135 QRS: 80 QRSD: 106 T: 66 QT: 385 QTc: 440 Interpretive Statements SINUS RHYTHM POSSIBLE INFERIOR MYOCARDIAL INFARCTION , OF INDETERMINATE AGE [30 ms Q WAVE IN II/aVF] Compared to ECG 04/03/2022 19:14:36 Myocardial infarct finding now present ST (T wave) deviation no longer present Early repolarization no longer present Electronically Signed On 08-13-2022 18:48:27 CDT by Naga Arreola M.D. [id number]
== END 2022-08-12 06:23 | disposition home or self-care (01) ==
PROVIDERS: Emergency Provider Emergency Medicine
DX: F15.10 Other stimulant abuse, uncomplicated (principal); J44.9 Chronic obstructive pulmonary disease, unspecified; F17.210 Nicotine dependence, cigarettes, uncomplicated
CPT/HCPCS: 93005; 99283

== ENCOUNTER 2022-08-14 21:38 | Emergency (ER) | payer MEDICAID, SELFPAY ==
[2022-08-14 21:49] VITALS: BP 115/58; PULSE 69; RESP 16; TEMP 36.9; O2SAT 99; BMI 18.4
--- NOTE | 2022-08-14 22:20 | W.ED.EXTPRO ---
HPI - Extremity Problem General: Chief complaint: Extremity Injury, Lower Stated complaint: tingling in legs/thinks bugs in BM Time Seen by Provider: 08/14/22 21:46 Source: patient Mode of arrival: ambulatory Limitations: no limitations History of Present Illness: 37-year-old male who has been seen here multiple times he is homeless history of methamphetamine abuse he states he keeps having this rash and he feels like things are crawling all over him. He feels like he has bugs in his stool as well. He is well-appearing here currently has no worsening proving factors. Associated symptoms: Reports rash; Deny chest pain or fever(s) Review of Systems Const: Denies: fever(s), chills, body aches or change in appetite ENMT: Denies: throat pain or dental pain Card: Denies: chest pain Resp: Denies: dyspnea GI: Denies: abdominal pain, nausea, vomiting or diarrhea : Denies: dysuria Musc: Denies: neck pain or back pain Skin/Breast: Reports: rash Neuro: Denies: headache(s) PFS ED PFSH: Medical History COPD (chronic obstructive pulmonary disease) Social History Smoking and tobacco status: current every day smoker Physical Exam Const: COMMON NORMALS: no acute distress and patient oriented x3 HENMT: COMMON NORMALS: normocephalic and atraumatic HEAD & SCALP: normocephalic and atraumatic Eye: COMMON NORMALS: conjunctivae normal CONJUNCTIVA: Yes conjunctivae normal Neck/C-Spine: COMMON NORMALS: full ROM and supple Chest: COMMONS NORMALS: normal inspection of the chest and normal palpation of entire chest wall Resp: COMMON NORMALS: normal respiratory effort, No retractions, No use of accessory muscles and clear to auscultation bilaterally AUSCULTATION: clear to auscultation bilaterally Cardio: COMMON NORMALS: regular rate, regular rhythm and No murmurs present (Cardio) RATE: regular rate RHYTHM: regular rhythm GI: COMMON NORMALS: Normal to inspection, nondistended, normoactive bowel sounds present, Soft to palpation, non-tender and no masses PALPATION: Yes Soft to palpation Extremity: COMMON NORMALS: full ROM Neuro: COMMON NORMALS: patient oriented x3, moves all extremities and no focal motor deficits Psych: COMMON NORMALS: mental status grossly normal, Normal thought process present and cooperative THOUGHT PROCESS: Normal thought process present Skin: NARRATIVE SKIN EXAM: His rash to his lower legs where he has been picking was in room he actually picked off the scab to try to prove to me that he had bugs underneath and there is nothing underneath Course Vital Signs: Vital signs: Vital Signs Temperature 98.4 F 08/14/22 21:49 Pulse Rate 69 08/14/22 21:49 Respiratory Rate 16 08/14/22 21:49 Blood Pressure 115/58 08/14/22 21:49 Pulse Oximetry 99 08/14/22 21:49 Oxygen Delivery Me thod Room Air 08/14/22 21:49 MDM - Extremity (Nontraumatic) Medical Decision Making Patient presents here with formication likely from his meth abuse he is well-appearing here he is no acute findings he is stable for discharge. Discharge Plan Discharge Patient Disposition: Home Clinical Impression: Formication, Methamphetamine use disorder, severe Condition: Stable Prescriptions: No Action albuterol sulfate 90 mcg/actuation HFA aerosol inhaler 2 inh INHALATION Q4H PRN (Reason: shortness of breath or wheezing) Qty: 18 0RF Elimite 5 % cream 1 applic topical Q14D Qty: 60 0RF Rx Instructions: apply second treatment 14 days after first treatment if live lice remain Discharge Orders: Discharge ED (Routine); Ordered 08/14/22 Ordered By: Latoya Guzman Discharge Diet: Advance as tolerated Discharge Activity: Resume usual activity Patient Instructions: Acute Rash (ED) Coding Level of Care Code ED Senior Product Consultant for Nicholas Lema
[2022-08-14] MEDS: LORazepam 2 mg Tablet PO (22:31)
== END 2022-08-14 22:33 | disposition home or self-care (01) ==
PROVIDERS: Emergency Provider Emergency Medicine
DX: R20.2 Paresthesia of skin (principal); F15.10 Other stimulant abuse, uncomplicated; J44.9 Chronic obstructive pulmonary disease, unspecified; F17.210 Nicotine dependence, cigarettes, uncomplicated
CPT/HCPCS: 99283

== ENCOUNTER 2022-08-15 01:28 | Emergency (ER) | payer MEDICAID, SELFPAY ==
[2022-08-15 01:29] VITALS: BP 107/52; PULSE 66; RESP 16; TEMP 36.7; O2SAT 98; BMI 18.4
--- NOTE | 2022-08-15 01:36 | W.ED.GENADLT ---
HPI - General Adult General: Chief complaint: General Medical Stated complaint: AMS Time Seen by Provider: 08/15/22 01:36 History of Present Illness: 37-year-old gentleman with history of substance abuse and homelessness presenting via EMS [place] acting oddly/overly tired. Patient himself denies any new injuries. He denies any symptoms other than feeling tired and he was sleeping because he is tired. He last used methamphetamine a day ago. Denies other substance abuse. Denies other changes in health. Review of Systems General: Reports: 10 or more systems reviewed and unremarkable except in HPI and below PFSH ED PFSH: Medical History COPD (chronic obstructive pulmonary disease) Social History Smoking and tobacco status: current every day smoker Physical Exam Const: COMMON NORMALS: alert GENERAL APPEARANCE: cooperative and well developed HENMT: COMMON NORMALS: normocephalic and atraumatic HEAD & SCALP: normocephalic and atraumatic THROAT: posterior oropharynx normal Eye: COMMON NORMALS: conjunctivae normal CONJUNCTIVA: Yes conjunctivae normal SCLERA: sclerae normal Neck/C-Spine: COMMON NORMALS: supple GENERAL: Yes trachea midline Resp: COMMON NORMALS: clear to auscultation bilaterally EFFORT & INSPECTION: Yes able to speak in complete sentences AUSCULTATION: clear to auscultation bilaterally Cardio: COMMON NORMALS: regular rate and regular rhythm RATE: regular rate RHYTHM: regular rhythm GI: COMMON NORMALS: Soft to palpation PALPATION: Yes Soft to palpation and No Tenderness to palpation present (GI) Extremity: GENERAL: Yes normal exam except as noted and No edema Neuro: COMMON NORMALS: moves all extremities SENSORIUM/ORIENTATION: Yes alert and No Orientation impaired Psych: COMMON NORMALS: denies homicidal ideation and denies suicidal ideation Course Vital Signs: Vital signs: Vital Signs Temperature 98.1 F 08/15/22 01:29 Pulse Rate 63 08/15/22 01:50 Respiratory Rate 14 08/15/22 01:50 Blood Pressure 95/56 08/15/22 01:50 Pulse Oximetry 97 08/15/22 01:50 Oxygen Delivery Me thod Room Air 08/15/22 01:50 [facility] - General Adult Medical Decision Making 37-year-old gentleman presenting for evaluation of perhaps altered mental status. No alteration in mental status on my exam. No meningismus. No focal findings. No evidence of trauma and patient denies trauma. No indication for laboratory studies or imaging at this time. The results of ED evaluation were given to the patient including prescriptions and/or symptomatic cares (if applicable) including appropriate and responsible use, followup plan, and return precautions. Medical Records I reviewed the patient's medical records. Lab Data I reviewed the patient's lab results. Laboratory Results POC Glucose 114 mg/dL (70-110) H 08/15/22 01:48 Discharge Plan Discharge Patient Disposition: Home Clinical Impression: Methamphetamine use disorder, severe, Homelessness, Feeling tired Condition: Stable Prescriptions: No Action No Known Home Medications Discharge Orders: Discharge ED (Routine); Ordered 08/15/22 Ordered By: Vadim Burkett Discharge Diet: Usual diet Discharge Activity: Resume usual activity Patient Instructions: Methamphetamine Use Disorder (ED), Altered Mental Status (ED) Activity Restrictions/Additional Instructions: Thank you for visiting the emergency department. You were seen about a for perhaps mental status change. Most likely this is secondary to substance use and being tired, possibly washing out from amphetamines. I do not see any findings that would require further ED evaluation or hospitalization. Please stop doing drugs. Failure to stop doing drugs will likely lead to or worse. Establish with a primary care provider. Return for anything that you are concerned about and feel needs emergency department evaluation Coding Level of Care Code ED Canal Equipment Mechanic for Nicholas Lema
[2022-08-15 01:50] VITALS: BP 95/56; PULSE 63; RESP 14; O2SAT 97
[2022-08-15 01:50] LABS: Glucose Point of Care 114 mg/dL (70-110)
== END 2022-08-15 02:19 | disposition home or self-care (01) ==
PROVIDERS: Emergency Provider Emergency Medicine
DX: R53.83 Other fatigue (principal); F15.10 Other stimulant abuse, uncomplicated; Z59.00 Homelessness unspecified
CPT/HCPCS: 36416; 82962; 99283

== ENCOUNTER 2022-08-15 02:26 | Emergency (ER) | payer MEDICAID, SELFPAY ==
--- NOTE | 2022-08-15 02:26 | CTR_ITS ---
PROCEDURE INFORMATION: Exam: CT Cervical Spine Without Contrast Exam date and time: 08/15/2022 2:54 AM Age: 37 years old Clinical indication: Injury or trauma; Fall; Blunt trauma; Additional info: Fall, headstrike TECHNIQUE: Imaging protocol: Computed tomography of the cervical spine without contrast. Radiation optimization: All CT scans at this facility use at least one of these dose optimization techniques: automated exposure control; mA and/or kV adjustment per patient size (includes targeted exams where dose is matched to clinical indication); or iterative reconstruction. REPORTING DATA: Count of CT and Cardiac NM exams in prior 12 months: This patient has received 0 known CTs and 0 known cardiac nuclear medicine studies in the 12 months prior to the current study. COMPARISON: CT facial bones wo con* [id number] 08/15/2022 2:52 AM RADIATION DOSE METRICS: Total DLP (mGy-cm): 185.87 FINDINGS: Bones/joints: No acute fracture. Normal alignment. No significant disc bulge or herniation. No severe spinal canal stenosis. No significant neural foraminal narrowing. Lungs: No pneumothorax. Soft tissues: Unremarkable. CT/CT cervical spin wo con* [id number] IMPRESSION: No acute findings.
--- NOTE | 2022-08-15 02:26 | CTR_ITS ---
PROCEDURE INFORMATION: Exam: CT Head Without Contrast Exam date and time: 08/15/2022 2:50 AM Age: 37 years old Clinical indication: Injury or trauma; Fall; Blunt trauma (contusions or hematomas); Consciousness not specified; Additional info: Fall, headstrike TECHNIQUE: Imaging protocol: Computed tomography of the head without contrast. Radiation optimization: All CT scans at this facility use at least one of these dose optimization techniques: automated exposure control; mA and/or kV adjustment per patient size (includes targeted exams where dose is matched to clinical indication); or iterative reconstruction. REPORTING DATA: Count of CT and Cardiac NM exams in prior 12 months: This patient has received 0 known CTs and 0 known cardiac nuclear medicine studies in the 12 months prior to the current study. COMPARISON: No relevant prior studies available. RADIATION DOSE METRICS: Total DLP (mGy-cm): 1085.18 FINDINGS: Brain: No hemorrhage. No edema, mass effect or midline shift. Cerebral ventricles: No ventriculomegaly. Paranasal sinuses: Visualized sinuses are unremarkable. No fluid levels. Mastoid air cells: No mastoid effusion. Bones/joints: No acute fracture. Soft tissues: Unremarkable. CT/CT head wo con* [id number] IMPRESSION: No acute intracranial abnormality.
--- NOTE | 2022-08-15 02:28 | ED_ITS ---
HPI - Head Injury General: Chief complaint: Fall Stated complaint: fall Time Seen by Provider: 08/15/22 02:26 History of Present Illness: 37-year-old male returning to the emergency department where he was previously seen for tiredness. He had no focal neurologic deficits and can carry on a conversation with linear and goal-oriented speech. Initial clinical suspicion for tiredness secondary to time of night versus washout of amphetamines. He was deemed appropriate for outpatient management however unfortunately he was ambulating from the emergency department and fell striking his head. The patient himself is still quite tired. He has a left eyebrow laceration without active hemorrhage. Otherwise denies complaints but it is somewhat unclear if patient remembers falling. No other specific changes in health, exacerbating, or alleviating factors identified. Mechanism of Injury: fall Other Injuries: laceration Review of Systems General: Reports: 10 or more systems reviewed and unremarkable except in HPI and below [facility] ED PFSH: Medical History COPD (chronic obstructive pulmonary disease) Social History Smoking and tobacco status: current every day smoker Physical Exam Const: COMMON NORMALS: alert GENERAL APPEARANCE: cooperative and well developed HENMT: COMMON NORMALS: normocephalic HEAD & SCALP: normocephalic THROAT: posterior oropharynx normal OTHER: Left lateral eyebrow 1.5 cm laceration. No lundberg signs or raccoon eyes. No hemotympanum. No otorrhea or rhinorrhea. Jaw alignment normal. Dentition baseline. No obvious bony step-offs. No septal hematoma. No evidence of ocular entrapment. Eye: COMMON NORMALS: conjunctivae normal CONJUNCTIVA: Yes conjunctivae norm al SCLERA: sclerae normal Neck/C-Spine: COMMON NORMALS: supple GENERAL: Yes trachea midline Resp: COMMON NORMALS: clear to auscultation bilaterally EFFORT & INSPECTION: Yes able to speak in complete sentences AUSCULTATION: clear to auscultation bilaterally Cardio: COMMON NORMALS: regular rate and regular rhythm RATE: regular rate RHYTHM: regular rhythm GI: COMMON NORMALS: Soft to palpation PALPATION: Yes Soft to palpation and No Tenderness to palpation present (GI) Extremity: GENERAL: Yes normal exam except as noted and No edema Neuro: COMMON NORMALS: moves all extremities SENSORIUM/ORIENTATION: Yes alert, No Orientation impaired and Yes somnolent Procedures Laceration Laceration 1: Site: face Side (If applicable): left Size (cm): 1.5 Description: linear Depth: simple, single layer Pre-repair: wound explored and irrigated extensively Skin layer closed with: other (Dermabond) Course Vital Signs: Vital signs: Vital Signs Pulse Rate 78 08/15/22 02:32 Respiratory Rate 16 08/15/22 02:32 Blood Pressure 113/68 08/15/22 02:32 Pulse Oximetry 97 08/15/22 02:32 MDM - Head Injury Medcial Decision Making 37-year-old gentleman presenting with fall. Head to toe exam performed. Mentation is questionable with somnolence. Labs with minimal leukocytosis which is nonspecific in the absence of infectious symptoms. Normal hemoglobin. Metabolic panel with minimal hypokalemia. Normal glucose. Toxic ingestions negative. CT imaging negative for internal injury or fracture. Laceration repaired with glue. The results of ED evaluation were given to the patient including prescriptions and/or symptomatic cares (if applicable) including appropriate and responsible use, followup plan, and return precautions. Medical Records I reviewed the patient's medical records. Lab Data I reviewed the patient's lab results. 08/15/22 01:39 08/15/22 01:39 Radiology Impressions Cervical Spine CT 08/15/22 02:26 IMPRESSION: No acute findings. Head CT 08/15/22 02:26 IMPRESSION: No acute intracranial abnormality. Face CT 08/15/22 02:31 IMPRESSION: No acute findings. Laboratory Results WBC 11.4 10^3/uL (4.0-10.0) H 08/15/22 01:39 RBC 4.42 10^6/uL (4.1-5.3) 08/15/22 01:39 Hgb 12.1 g/dL (11.7-16.6) 08/15/22 01:39 Hct 38.5 % (42.0-52.0) L 08/15/22 01:39 MCV 87.1 fl (80-94) 08/15/22 01:39 MCH 27.4 pg (28.0-34.0) L 08/15/22 01:39 MCHC 31.4 g/dL (30.0-36.0) 08/15/22 01:39 RDW 13.5 % (12.1-15.1) 08/15/22 01:39 Plt Count 300 10^3/cmm (130-400) 08/15/22 01:39 MPV 10.1 fL (7.4-10.4) 08/15/22 01:39 Neut % (Auto) 42.7 % 08/15/22 01:39 Lymph % (Auto) 41.9 % 08/15/22 01:39 Person % (Auto) 7.1 % 08/15/22 01:39 Eos % (Auto) 7.4 % 08/15/22 01:39 Baso % (Auto) 0.7 % 08/15/22 01:39 Neut # (Auto) 4.87 10^3/uL (1.8-7.7) 08/15/22 01:39 Lymph # (Auto) 4.8 10^3/uL (0.8-4.8) 08/15/22 01:39 Person # (Auto) 0.8 10^3/uL (0.2-0.9) 08/15/22 01:39 Eos # (Auto) 0.9 10^3/uL (0.0-0.8) H 08/15/22 01:39 Baso # (Auto) 0.1 10^3/uL (0.0-0.1) 08/15/22 01:39 Nucleated RBC % (auto) 0 % 08/15/22 01:39 Nucleated RBCs # 0.0 /100WBC 08/15/22 01:39 Sodium 142 mmol/L (136-145) 08/15/22 01:39 Potassium 3.3 mmol/L (3.5-5.1) L 08/15/22 01:39 Chloride 105 mmol/L (98-107) 08/15/22 01:39 Carbon Dioxide 27 mmol/L (22-29) 08/15/22 01:39 Anion Gap 13.3 (5-19) 08/15/22 01:39 BUN 17 mg/dL (6-20) 08/15/22 01:39 Creatinine 0.9 mg/dL (0.7-1.2) 08/15/22 01:39 GFR Calculation 95.0 mL/min (90-130) 08/15/22 01:39 Glucose 105 mg/dL (65-115) 08/15/22 01:39 Calculated Osmolality 296 mOsm/kg (285-295) H 08/15/22 01:39 Calcium 8.9 mg/dL (8.5-10.5) 08/15/22 01:39 Total Bilirubin 0.8 mg/dL (0.15-1.2) 08/15/22 01:39 AST 16 U/L (0-40) 08/15/22 01:39 ALT 12 U/L (0-41) 08/15/22 01:39 Alkaline Phosphatase 134 U/L (40-130) H 08/15/22 01:39 Total Protein 6.3 g/dL (6.6-8.7) L 08/15/22 01:39 Albumin 4.0 g/dL (3.5-5.2) 08/15/22 01:39 Globulin 2.3 g/dL (1.3-4.6) 08/15/22 01:39 Salicylates < 0.3 mg/dL (3-10) L 08/15/22 01:39 Acetaminophen < 5.0 ug/mL (10-30) L 08/15/22 01:39 Ethyl Alcohol < 10 mg/dL (0-10) 08/15/22 01:39 Discharge Plan Discharge Patient Disposition: Home Clinical Impression: Fall, Laceration of eyebrow, CHI (closed head injury) Condition: Stable Prescriptions: No Action No Known Home Medications Discharge Orders: Discharge ED (Routine); Ordered 08/15/22 Ordered By: Vadim Burkett Discharge Diet: Usual diet Discharge Activity: Limit activity as instructed Patient Instructions: Head Injury (ED), Skin Adhesive Care (ED), Facial Laceration (ED) Activity Restrictions/Additional Instructions: Keep wound clean and dry. Return for evidence of infection. Return for anything else that you are concerned about and feel needs emergency department evaluation. Coding Level of Care Code ED Cruise Agent for Nicholas Lema
[2022-08-15 02:29] VITALS: BMI 18.4
[2022-08-15 02:31] LABS: Basophils # 0.1 10^3/uL (0.0-0.1); Basophils % 0.7 %; Eosinophils # 0.9 10^3/uL (0.0-0.8); Eosinophils % 7.4 %; Hematocrit 38.5 % (42.0-52.0); Hemoglobin 12.1 g/dL (11.7-16.6); Lymphocytes # 4.8 10^3/uL (0.8-4.8); Lymphocytes % 41.9 %; Mean Corpuscular HGB Conc 31.4 g/dL (30.0-36.0); Mean Corpuscular Hemoglobin 27.4 pg (28.0-34.0); Mean Corpuscular Volume 87.1 fl (80-94); Mean Platelet Volume 10.1 fL (7.4-10.4); Monocytes # 0.8 10^3/uL (0.2-0.9); Monocytes % 7.1 %; Neutrophils # 4.87 10^3/uL (1.8-7.7); Neutrophils % 42.7 %; Nucleated Red Blood Cells % 0 %; Platelet Count 300 10^3/cmm (130-400); Red Blood Count 4.42 10^6/uL (4.1-5.3); Red Cell Distribution Width 13.5 % (12.1-15.1); White Blood Count 11.4 10^3/uL (4.0-10.0)
--- NOTE | 2022-08-15 02:31 | CTR_ITS ---
PROCEDURE INFORMATION: Exam: CT Maxillofacial Without Contrast Exam date and time: 08/15/2022 2:52 AM Age: 37 years old Clinical indication: Injury or trauma; Fall; Blunt trauma (contusions or hematomas); Forehead; Additional info: Fall, L periorbital contusion TECHNIQUE: Imaging protocol: Computed tomography of the face without contrast. Radiation optimization: All CT scans at this facility use at least one of these dose optimization techniques: automated exposure control; mA and/or kV adjustment per patient size (includes targeted exams where dose is matched to clinical indication); or iterative reconstruction. REPORTING DATA: Count of CT and Cardiac NM exams in prior 12 months: This patient has received 0 known CTs and 0 known cardiac nuclear medicine studies in the 12 months prior to the current study. COMPARISON: CT head wo con* [id number] 08/15/2022 2:50 AM RADIATION DOSE METRICS: Total DLP (mGy-cm): 623.75 FINDINGS: Orbital cavities: Orbits are normal. Globes are unremarkable. Bones/joints: No acute fracture. Paranasal sinuses: Normal. No air-fluid levels. Soft tissues: Unremarkable. CT/CT facial bones wo con* [id number] IMPRESSION: No acute findings.
[2022-08-15 02:32] VITALS: BP 113/68; PULSE 78; RESP 16; O2SAT 97
[2022-08-15 02:48] LABS: Alanine Aminotransferase 12 U/L (0-41); Alkaline Phosphatase 134 U/L (40-130); Anion Gap 13.3 (5-19); Aspartate Amino Transferase 16 U/L (0-40); Blood Urea Nitrogen 17 mg/dL (6-20); Calcium 8.9 mg/dL (8.5-10.5); Carbon Dioxide 27 mmol/L (22-29); Chloride 105 mmol/L (98-107); Globulin 2.3 g/dL (1.3-4.6); Glucose 105 mg/dL (65-115); Osmolality Calculated 296 mOsm/kg (285-295); Potassium 3.3 mmol/L (3.5-5.1); Sodium 142 mmol/L (136-145); Total Bilirubin 0.8 mg/dL (0.15-1.2); Total Protein 6.3 g/dL (6.6-8.7)
[2022-08-15 02:51] LABS: Acetaminophen < 5.0 ug/mL (10-30); Alcohol Level < 10 mg/dL (0-10); Salicylate < 0.3 mg/dL (3-10)
[2022-08-15] MEDS: potassium chloride oral liq 20 mEq/15 mL UDC 40 MEQ PO (03:10)
--- NOTE | 2022-08-15 06:22 | PC.NURSE ---
RN into room to round on pt at 0600. Pt is currently asleep in bed resting.
--- NOTE | 2022-08-15 07:03 | PC.NURSE ---
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
--- NOTE | 2022-08-15 08:47 | PC.NURSE ---
PT NO LONGER LIVES AT [place] [facility], PT EXPRESSED HE IS HOMELESS AND EXPRESSED HE DOES NOT WANT US TO LOOK FOR PLACEMENT. PT WOULD LIKE TO BE ' DISCHARGED TO THE STREET PER PT.
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
== END 2022-08-15 08:56 | disposition home or self-care (01) ==
PROVIDERS: Emergency Provider Emergency Medicine
DX: S01.112A Laceration without foreign body of left eyelid and periocular area, initial encounter (principal); S09.90XA Unspecified injury of head, initial encounter; W19.XXXA Unspecified fall, initial encounter; Y93.01 Activity, walking, marching and hiking
CPT/HCPCS: 12011; 70450; 70486; 72125; 80053; 80307; 85025; 99285

== ENCOUNTER 2022-08-16 02:35 | Emergency (ER) | payer MEDICAID, SELFPAY ==
[2022-08-16 02:38] VITALS: BP 104/61; PULSE 78; RESP 16; TEMP 36.4; O2SAT 97; BMI 18.4
--- NOTE | 2022-08-16 02:39 | W.ED.PSYCHS ---
HPI - Psych General: Chief Complaint: Psychiatric Symptoms Stated Complaint: MHE Time Seen by Provider: 08/16/22 02:39 History of Present Illness: Mr. Baker is a 37-year-old gentleman presenting to the emergency department for recurrent concerns regarding possible parasitic or bug infestation. He adamantly does not believe that this could be related to his amphetamine abuse. He reports no worsening however has not had improvement of scattered skin lesions. He believes that he can see things crawling under his skin sometimes. Otherwise no generalized illness or changes in health. No other specific changes in health, exacerbating, or alleviating factors identified. Review of Systems General: Reports: 10 or more systems reviewed and unremarkable except in HPI and below PFSH ED PFSH: Medical History COPD (chronic obstructive pulmonary disease) Social History Smoking and tobacco status: current every day smoker Physical Exam Const: COMMON NORMALS: alert GENERAL APPEARANCE: cooperative and well developed HENMT: COMMON NORMALS: normocephalic and atraumatic HEAD & SCALP: normocephalic and atraumatic Eye: COMMON NORMALS: conjunctivae normal CONJUNCTIVA: Yes conjunctivae normal SCLERA: sclerae normal Neck/C-Spine: COMMON NORMALS: supple GENERAL: Yes trachea midline Resp: COMMON NORMALS: clear to auscultation bilaterally EFFORT & INSPECTION: Yes able to speak in complete sentences AUSCULTATION: clear to auscultation bilaterally Cardio: COMMON NORMALS: regular rate and regular rhythm RATE: regular rate RHYTHM: regular rhythm Extremity: GENERAL: Yes normal exam except as noted and No edema Neuro: COMMON NORMALS: moves all extremities SENSORIUM/ORIENTATION: Yes alert and No Orientation impaired Psych: COMMON NORMALS: denies homicidal ideation and denies suicidal ideation Skin: NARRATIVE SKIN EXAM: Scattered skin lesions which are more consistent with picking or insect bites. I do not see evidence of infection of any of these lesions. Course Vital Signs: Vital signs: Vital Signs Temperature 97.6 F 08/16/22 02:38 Pulse Rate 78 08/16/22 02:38 Respiratory Rate 16 08/16/22 02:38 Blood Pressure 104/61 08/16/22 02:38 Pulse Oximetry 97 08/16/22 02:38 Oxygen Delivery Me thod Room Air 08/16/22 02:38 MDM - Psych Medical Decision Making 37-year-old gentleman with history of amphetamine abuse and prior presentations for similar presenting to the emergency department for evaluation of skin lesions. He is nontoxic in appearance. Skin lesions appear to be either insect bites or more typically pick chavez from scratching his skin. There is no hematologic or lymphangitic distribution or concerning findings. I do not believe that any of these are infection related or infestation related. He is quite adamant that blood tests would reveal some sort of answer. I reviewed blood test from prior day and I do not feel that repeat is necessary at this time. There is no appropriate imaging studies required at this time. 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 The results of ED evaluation were given to the patient including prescriptions and/or symptomatic cares (if applicable) including appropriate and responsible use, followup plan, and return precautions. Medical Records I reviewed the patient's medical records. Lab Data I reviewed the patient's lab results. Laboratory Results POC Glucose 88 mg/dL (70-110) 08/16/22 02:48 Discharge Plan Discharge Patient Disposition: Home Clinical Impression: Formication, Homelessness, Malingering Condition: Stable Prescriptions: No Action No Known Home Medications Discharge Orders: Discharge ED (Routine); Ordered 08/16/22 Ordered By: Vadim Burkett Discharge Diet: Usual diet Discharge Activity: Resume usual activity Patient Instructions: Methamphetamine Use Disorder (ED) Activity Restrictions/Additional Instructions: You were seen and evaluated for concern over skin lesions. I believe that the likelihood of you having a systemic parasite infection is low and the more likely cause of your symptoms is drug use and skin picking. I do not see evidence even if you were to have a systemic parasitic infection that this would be identified on repeat emergency department testing at this time. Nor would it require inpatient management. I recommend following up and establishing with a primary care provider. You need to stop using drugs. Failure to stop using drugs will likely lead to or worse. Coding Level of Care Code ED Event Services Manager for Nicholas Lema
[2022-08-16 02:52] LABS: Glucose Point of Care 88 mg/dL (70-110)
== END 2022-08-16 03:09 | disposition home or self-care (01) ==
PROVIDERS: Emergency Provider Emergency Medicine
DX: F45.8 Other somatoform disorders (principal); Z76.5 Malingerer [conscious simulation]; Z59.00 Homelessness unspecified
CPT/HCPCS: 36416; 82962; 99283

== ENCOUNTER 2022-08-19 23:30 | Inpatient (IN) | payer MEDICAID, SELFPAY ==
[2022-08-19 23:30] VITALS: BP 113/69; PULSE 75; RESP 16; TEMP 36.6; O2SAT 96; BMI 19.2
[2022-08-20 00:37] LABS: Add Urine Microscopic? NO; Charge for UA Resulting for Rev
[2022-08-20 00:48] LABS: Amphetamines Screen Urine Negative (Negative); Barbiturates Screen Urine Negative (Negative); Benzodiazepines Screen Urine Negative (Negative); Cocaine Screen Urine Negative (Negative); Opiate Screen Urine Negative (Negative); PCP Screen Urine Negative (Negative); THC Screen Urine Negative (Negative)
[2022-08-20 00:57] LABS: Basophils # 0.1 10^3/uL (0.0-0.1); Basophils % 0.6 %; Eosinophils # 0.5 10^3/uL (0.0-0.8); Eosinophils % 3.6 %; Hematocrit 40.8 % (42.0-52.0); Hemoglobin 12.9 g/dL (11.7-16.6); Lymphocytes # 3.9 10^3/uL (0.8-4.8); Lymphocytes % 28.5 %; Mean Corpuscular HGB Conc 31.6 g/dL (30.0-36.0); Mean Corpuscular Hemoglobin 28.2 pg (28.0-34.0); Mean Corpuscular Volume 89.1 fl (80-94); Monocytes # 0.6 10^3/uL (0.2-0.9); Monocytes % 4.4 %; Neutrophils % 62.5 %; Nucleated Red Blood Cells % 0 %; Platelet Count 282 10^3/cmm (130-400); Red Blood Count 4.58 10^6/uL (4.1-5.3); Red Cell Distribution Width 13.8 % (12.1-15.1); White Blood Count 13.7 10^3/uL (4.0-10.0)
[2022-08-20 01:05] LABS: Bilirubin Urine Neg (Negative); Blood Urine Neg (Negative); Glucose Urine UA Norm (Normal); Ketones Urine Negative (Negative); Leukocyte Esterase Urine Negative (Negative); Nitrate Urine Negative (Negative); Protein Urine Neg (Negative); Specific Gravity, Urine 1.025 (1.005-1.030); Urine Appearance Clear (CLEAR); Urine Color Yellow (Yellow); Urobilinogen Urine Norm (Negative); pH Urine 5 (5-7)
[2022-08-20 01:10] LABS: Alanine Aminotransferase 12 U/L (0-41); Alkaline Phosphatase 117 U/L (40-130); Anion Gap 13.4 (5-19); Aspartate Amino Transferase 15 U/L (0-40); Blood Urea Nitrogen 22 mg/dL (6-20); Calcium 8.8 mg/dL (8.5-10.5); Carbon Dioxide 28 mmol/L (22-29); Chloride 105 mmol/L (98-107); Globulin 2.4 g/dL (1.3-4.6); Glomerular Filtration Rate 108.8 mL/min (90-130); Glucose 128 mg/dL (65-115); Osmolality Calculated 301 mOsm/kg (285-295); Potassium 3.4 mmol/L (3.5-5.1); Sodium 143 mmol/L (136-145); Total Bilirubin 0.4 mg/dL (0.15-1.2); Total Protein 6.4 g/dL (6.6-8.7)
[2022-08-20 01:25] LABS: Acetaminophen < 5.0 ug/mL (10-30); Alcohol Level < 10 mg/dL (0-10); Salicylate < 0.3 mg/dL (3-10)
[2022-08-20 02:19] VITALS: BP 122/62; PULSE 78; RESP 16; TEMP 36.7; O2SAT 95
[2022-08-20 02:29] VITALS: BP 102/57; PULSE 82; RESP 20; TEMP 36.9; O2SAT 96
[2022-08-20 06:00] VITALS: BP 112/62; PULSE 61; RESP 18; O2SAT 98
--- NOTE | 2022-08-20 07:13 | W.ED.PSYCHS ---
HPI - Psych General: Chief Complaint: Psychiatric Symptoms Stated Complaint: SI Time Seen by Provider: 08/20/22 00:00 Source: patient History of Present Illness: 37-year-old male well-known to the ER service. He has a history of mental illness, methamphetamine use disorder, and homelessness. He presents stating that he is suicidal. His plan is to cut himself with a knife or other sharp object. Of note, is that he does not appear intoxicated this morning. MD complaint: suicidal ideation and feels depressed Onset (ago): hour(s) History of same: No If self harm: admits thoughts of self harm and has plan Review of Systems Const: Denies: fever(s), chills or body aches Eyes: Denies: change in vision Card: Denies: chest pain or palpitations Resp: Denies: dyspnea, productive cough, non-productive cough or wheezing GI: Denies: abdominal pain, nausea, vomiting, diarrhea or hematochezia Skin/Breast: Denies: rash Neuro: Denies: headache(s), weakness in extremities, dizziness or confusion PFS ED PFSH: Medical History COPD (chronic obstructive pulmonary disease) Social History Smoking and tobacco status: current every day smoker Physical Exam Const: COMMON NORMALS: no acute distress GENERAL APPEARANCE: cooperative; not ill appearing and not frail appearing HENMT: COMMON NORMALS: normocephalic, atraumatic and Normal external nose present HEAD & SCALP: normocephalic and atraumatic FACE & SINUS: normal facial exam and face symmetric NOSE: Normal external nose present Eye: COMMON NORMALS: Equal, round and reactive pupils present and EOMs intact bilaterally PUPIL: Yes Equal, round and reactive pupils present Neck/C-Spine: GENERAL: Yes trachea midline Chest: CHEST: Yes Symmetrical chest wall rise Resp: COMMON NORMALS: normal respiratory effort, No retractions, No use of accessory muscles and clear to auscultation bilaterally AUSCULTATION: clear to auscultation bilaterally Cardio: COMMON NORMALS: regular rate and regular rhythm RATE: regular rate RHYTHM: regular rhythm GI: COMMON NORMALS: Normal to inspection, nondistended, normoactive bowel sounds present Extremity: COMMON NORMALS: no pedal edema Neuro: JONATHON COMA SCALE: document GCS findings Jon[place] coma scale eye opening: Spontaneous [place] coma scale verbal response: Orientated [place] coma scale motor response: Obey commands [place] coma scale total score: 15 SENSORY EXAM: Yes extremities (intact) Psych: COMMON NORMALS: cooperative and speech normal ATTITUDE: Yes calm ACTIVITY/MOTOR BEHAVIOR: Yes appropriate eye contact SPEECH: Yes normal speech THOUGHT CONTENT: Yes Suicidality present and No Hallucination(s) present ATTENTION/CONCENTRATION: Yes attention grossly intact MEMORY/COGNITION: Yes memory grossly intact and Yes cognition grossly intact Skin: COMMON NORMALS: no rashes or lesions noted GENERAL SKIN EXAM: no rashes or lesions noted Course Vital Signs: Vital signs: Vital Signs Temperature 98.4 F 08/20/22 02:29 Pulse Rate 61 08/20/22 06:00 Respiratory Rate 18 08/20/22 06:00 Blood Pressure 112/62 08/20/22 06:00 Pulse Oximetry 98 08/20/22 06:00 Oxygen Delivery Me thod Room Air 08/20/22 02:30 MDM - Psych Medical Decision Making This patient is not intoxicated or under the influence of any substances. His urine drug screen and alcohol levels are normal. He has a mild white blood cell count elevation. BUN is 22. Potassium 3.4. Other laboratory is stable. His vitals are stable. He is suicidal with a plan this morning. He was last admitted to the neuropsychiatric unit last year. While here frequently, he is usually requesting food, drink, and a place to stay or sleep. He does not routinely complain of suicidal ideation or depression. In the absence of substance intoxication, and presence of suicidal ideation with a plan, he will be admitted to the [facility]. I spoke with psychiatrist who agrees. He is medically stable. Lab Data 08/20/22 00:48 08/20/22 00:48 Laboratory Results WBC 13.7 10^3/uL (4.0-10.0) H 08/20/22 00:48 RBC 4.58 10^6/uL (4.1-5.3) 08/20/22 00:48 Hgb 12.9 g/dL (11.7-16.6) 08/20/22 00:48 Hct 40.8 % (42.0-52.0) L 08/20/22 00:48 MCV 89.1 fl (80-94) 08/20/22 00:48 MCH 28.2 pg (28.0-34.0) 08/20/22 00:48 MCHC 31.6 g/dL (30.0-36.0) 08/20/22 00:48 RDW 13.8 % (12.1-15.1) 08/20/22 00:48 Plt Count 282 10^3/cmm (130-400) 08/20/22 00:48 MPV 10.0 fL (7.4-10.4) 08/20/22 00:48 Neut % (Auto) 62.5 % 08/20/22 00:48 Lymph % (Auto) 28.5 % 08/20/22 00:48 [place] % (Auto) 4.4 % 08/20/22 00:48 Eos % (Auto) 3.6 % 08/20/22 00:48 Baso % (Auto) 0.6 % 08/20/22 00:48 Neut # (Auto) 8.60 10^3/uL (1.8-7.7) H 08/20/22 00:48 Lymph # (Auto) 3.9 10^3/uL (0.8-4.8) 08/20/22 00:48 [place] # (Auto) 0.6 10^3/uL (0.2-0.9) 08/20/22 00:48 Eos # (Auto) 0.5 10^3/uL (0.0-0.8) 08/20/22 00:48 Baso # (Auto) 0.1 10^3/uL (0.0-0.1) 08/20/22 00:48 Nucleated RBC % (auto) 0 % 08/20/22 00:48 Nucleated RBCs # 0.0 /100WBC 08/20/22 00:48 Sodium 143 mmol/L (136-145) 08/20/22 00:48 Potassium 3.4 mmol/L (3.5-5.1) L 08/20/22 00:48 Chloride 105 mmol/L (98-107) 08/20/22 00:48 Carbon Dioxide 28 mmol/L (22-29) 08/20/22 00:48 Anion Gap 13.4 (5-19) 08/20/22 00:48 BUN 22 mg/dL (6-20) H 08/20/22 00:48 Creatinine 0.8 mg/dL (0.7-1.2) 08/20/22 00:48 GFR Calculation 108.8 mL/min (90-130) 08/20/22 00:48 Glucose 128 mg/dL (65-115) H 08/20/22 00:48 Calculated Osmolality 301 mOsm/kg (285-295) H 08/20/22 00:48 Calcium 8.8 mg/dL (8.5-10.5) 08/20/22 00:48 Total Bilirubin 0.4 mg/dL (0.15-1.2) 08/20/22 00:48 AST 15 U/L (0-40) 08/20/22 00:48 ALT 12 U/L (0-41) 08/20/22 00:48 Alkaline Phosphatase 117 U/L (40-130) 08/20/22 00:48 Total Protein 6.4 g/dL (6.6-8.7) L 08/20/22 00:48 Albumin 4.0 g/dL (3.5-5.2) 08/20/22 00:48 Globulin 2.4 g/dL (1.3-4.6) 08/20/22 00:48 Salicylates < 0.3 mg/dL (3-10) L 08/20/22 00:48 Acetaminophen < 5.0 ug/mL (10-30) L 08/20/22 00:48 Ethyl Alcohol < 10 mg/dL (0-10) 08/20/22 00:48 Discharge Plan Discharge Patient Disposition: Admitted As Inpatient Admit Provider: Vinnie Ellis Clinical Impression: Depression, Suicidal ideation Condition: Stable Coding Level of Care Code ED International Manager for Nicholas Lema
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
[2022-08-20 14:00] VITALS: BP 92/53; PULSE 66; RESP 16; TEMP 36.6; O2SAT 99
[2022-08-20 19:46] VITALS: BP 111/64; PULSE 94; RESP 16; TEMP 36.6; O2SAT 98
[2022-08-21 06:00] VITALS: BP 107/65; PULSE 77; RESP 18; TEMP 37.2; O2SAT 97
[2022-08-21 14:00] VITALS: BP 107/61; PULSE 65; RESP 16; TEMP 36.6; O2SAT 98
--- NOTE | 2022-08-21 16:53 | W.PM.NPUPNS ---
Subjective NPU Subjective: 37-year-old male admitted with suicidal ideation with a past history of active methamphetamine abuse. He continued to endorse depressed mood. He had isolated himself on the milieu. He appeared disinterested in any addiction treatment. He had appeared to be wandering the hallway aimlessly for a while but was redirectable. He had been refusing medication at this time to manage his mood. He had reported having problems with concentration. He had reported being tired and overwhelmed by being homeless. He had minimized having required any help despite several visits to the emergency department noted that occurred in the presence of the use of methamphetamine. Mental Status Exam MSE Comments: This is a slender white male in hospital scrubs with poor grooming and fleeting eye contact. No abnormal movements except for psychomotor retardation. Mostly cooperative with exam in mild distress. There appeared to be a mild tremor and he had felt that something was on his back. Speech was normal in regards to rate rhythm and prosody. Mood reported as depressed. Affect was flat. Thought process linear and logical. Thought content: Patient denied homicidal ideation and endorsed suicidal ideation with no active plan reported today. There were no delusions reported. He did not appear to be responding to internal stimuli and denied any auditory or visual hallucinations. Attention was variable. His recent and remote memory appeared grossly intact. He was alert and oriented to person place and time. Insight and judgment and impulse control were all impaired. Vitals/I&O/Wt Last Vital Signs Temp 98 F 08/21/22 14:00 Pulse 65 08/21/22 14:00 Resp 16 08/21/22 14:00 BP 107/61 08/21/22 14:00 Pulse Ox 98 08/21/22 14:00 O2 Del Method Room Air 08/21/22 14:00 Weight last 48 hrs Weight 58.967 kg Data NPU 08/20/22 00:48 08/20/22 00:48 A&P Assessment and plan (1) Depression: (2) Suicidal ideation: (3) Suicidal ideation: (4) COPD (chronic obstructive pulmonary disease): (5) Psychosis: (6) Methamphetamine use disorder, severe: Plan This is a 37-year-old white male with history of drug induced psychotic disorder currently endorsing chronic methamphetamine abuse with increased suicidal ideation in the context of homelessness and depression. 1. Patient not agreeable to medications to target depression. 2. Continue to continue to check for safety. TO-15 checks on unit. 3. Encourage individual, group, and milieu therapy 4. Encourage sober living treatment after discharge at the highest level of care to which he is willing to commit. 5. Consider 96-hour hold, although patient showing slight improvement today. Involuntary Hold Information 96 Hour Hold: 96 Hour Involuntary Admission: No Attestations NPU Medical Necessity Statement*: Inpatient hospitalization is medically necessary and the clinically appropriate intervention at this time. We will monitor/start medications and make changes as indicated. His likely length of stay 3-4 days. Coding Level of Care Code Acute Code for [facility] Fwd Diagnoses Depression F32.A Suicidal ideation R45.851 COPD (chronic obstructive pulmonary disease) J44.9 Psychosis F29 Methamphetamine use disorder, 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
[2022-08-21 19:21] VITALS: BP 118/75; PULSE 93; RESP 18; TEMP 36.8; O2SAT 97
[2022-08-22 06:00] VITALS: BP 123/77; PULSE 88; RESP 16; TEMP 36.6; O2SAT 98
[2022-08-22 13:26] VITALS: BP 118/72; PULSE 93; RESP 18; TEMP 36.6; O2SAT 98
--- NOTE | 2022-08-22 15:25 | W.PM.NPUPNS ---
Subjective NPU Subjective: 37-year-old male admitted with suicidal ideation with a past history of active methamphetamine abuse. He continued to endorse depressed mood. Patient refused any medications at this time. He reported that he was still depressed. He had reported frustration that no one had helped him with his bites as he stated that he felt that there were bugs inside of his skin. He had expressed some anger that people had not done enough blood test to determine what this was. He had pointed to a particular part of his leg stating that he felt like there were bugs inside of there. Mental Status Exam MSE Comments: This is a slender white male in hospital scrubs with poor grooming and fleeting eye contact. No abnormal movements except for psychomotor retardation. Mostly cooperative with exam in mild distress. There appeared to be a mild tremor and he had felt that something was on his leg. Speech was normal in regards to rate rhythm and prosody. Mood reported as depressed. Affect was flat. Thought process linear and logical. Thought content: Patient denied homicidal ideation and endorsed suicidal ideation with no active plan reported today. There appeared to be some evidence of hallucinatory parasitosis. He did not appear to be responding internal stimuli. Attention was variable. His recent and remote memory appeared grossly intact. He was alert and oriented to person place and time. Insight and judgment and impulse control were all impaired. Vitals/I&O/Wt Last Vital Signs Temp 97.8 F 08/22/22 13:26 Pulse 93 08/22/22 13:26 Resp 18 08/22/22 13:26 BP 118/72 08/22/22 13:26 Pulse Ox 98 08/22/22 13:26 O2 Del Method Room Air 08/22/22 13:26 Data NPU 08/20/22 00:48 08/20/22 00:48 A&P Assessment and plan (1) Psychosis: (2) Depression: (3) Suicidal ideation: (4) Suicidal ideation: (5) COPD (chronic obstructive pulmonary disease): (6) Methamphetamine use disorder, severe: Plan This is a 37-year-old white male with history of drug induced psychotic disorder currently endorsing chronic methamphetamine abuse with increased suicidal ideation in the context of homelessness and depression. 1. Patient not agreeable to medications to target depression or psychosis. 2. Continue to continue to check for safety. TO-15 checks on unit. 3. Encourage individual, group, and milieu therapy 4. Encourage sober living treatment after discharge at the highest level of care to which he is willing to commit. 5. Consider 96-hour hold, but likely discharge soon. Involuntary Hold Information 96 Hour Hold: 96 Hour Involuntary Admission: No Attestations NPU Medical Necessity Statement*: Inpatient hospitalization is medically necessary and the clinically appropriate intervention at this time. We will monitor/start medications and make changes as indicated. His likely length of stay 3-4 days. Coding Level of Care Code Acute Code for [facility] Fwd Diagnoses Psychosis F29 Depression F32.A Suicidal ideation R45.851 COPD (chronic obstructive pulmonary disease) J44.9 Methamphetamine use disorder, 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
[2022-08-22 21:08] VITALS: BP 112/64; PULSE 83; RESP 18; O2SAT 97
[2022-08-23 06:00] VITALS: BP 119/70; PULSE 86; RESP 18; TEMP 36.4; O2SAT 96
[2022-08-23 14:00] VITALS: BP 105/65; PULSE 91; RESP 16; TEMP 36.8; O2SAT 97
--- NOTE | 2022-08-23 18:05 | W.PM.NPUPNS ---
Subjective NPU Subjective: Patient presents today with few words. He has reports of significant impairment per staff. Likely his hospitalizations he presents with clear psychosis but inability to fully engage in treatment as he is not interested in medication at this point with his psychosis seeming fixed there will be limited to no improvement without medication. We discussed this but he continued to report that he does not want to have medications. However he has no place to go and no idea how he is going to impact the situation and positive vet. We discussed as discussed and noted treatment team tomorrow and considering 96-hour hold and possibly ultimately guardianship. Mental Status Exam MSE Comments: This is a slender white male in hospital scrubs with poor grooming and eye contact. No abnormal movements except for psychomotor retardation. Somewhat cooperative with exam in mild to moderate distress. Speech was limited and decreased rate and volume. Mood described as fine, affect quite odd. Thought process linear but at times disorganized. Thought content: Patient denied suicidal or homicidal ideation, there were no delusions reported but clear paranoia existed, he denied auditory or visual hallucinations but concerns of internal preoccupation exist. Attention and concentration were intact and memory seemed unreliable but none were formally tested. Alert and oriented times person and place. Insight and judgment and impulse control seemed limited to impaired. Vitals/I&O/Wt Last Vital Signs Temp 98.1 F 08/23/22 21:50 Pulse 93 08/23/22 21:50 Resp 16 08/23/22 21:50 BP 110/70 08/23/22 21:50 Pulse Ox 93 08/23/22 21:50 O2 Del Method Room Air 08/23/22 21:50 Data NPU 08/20/22 00:48 08/20/22 00:48 A&P Assessment and plan (1) Psychosis: (2) Depression: (3) Suicidal ideation: (4) Suicidal ideation: (5) COPD (chronic obstructive pulmonary disease): (6) Methamphetamine use disorder, severe: Plan This is a 37-year-old white male with history of drug induced psychotic disorder currently endorsing chronic methamphetamine abuse with increased suicidal ideation in the context of homelessness and depression. 1. Patient not agreeable to medications to target depression or psychosis. 2. Continue to continue to check for safety. TO-15 checks on unit. 3. Encourage individual, group, and milieu therapy 4. Encourage sober living treatment after discharge at the highest level of care to which he is willing to commit. 5. Consider 96-hour hold versus discharge. Patient with clear disability from his psychosis but inability to consider medication. We will need to put on hold and ultimately forced medication or allowed to discharge with a plan to be more assertive if and when he returns. Involuntary Hold Information 96 Hour Hold: 96 Hour Involuntary Admission: No Attestations NPU Medical Necessity Statement*: Inpatient hospitalization is medically necessary and the clinically appropriate intervention at this time. We will monitor/start medications and make changes as indicated. His likely length of stay 3-5 days. Coding Level of Care Code Acute Code for g Fwd Diagnoses Psychosis F29 Depression F32.A Suicidal ideation R45.851 COPD (chronic obstructive pulmonary disease) J44.9 Methamphetamine use disorder, 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
[2022-08-23 21:50] VITALS: BP 110/70; PULSE 93; RESP 16; TEMP 36.7; O2SAT 93
--- NOTE | 2022-08-24 02:11 | PC.NURSE ---
Pt has been in and out of bed, continuously pacing the halls / dayroom while having full length conversations with himself. Pt denies AVH, however continues to have odd behavior.
[2022-08-24 06:00] VITALS: BP 103/64; PULSE 65; RESP 16; TEMP 36.7; O2SAT 98
[2022-08-24 14:00] VITALS: BP 116/55; PULSE 76; RESP 16; TEMP 36.7; O2SAT 97
--- NOTE | 2022-08-24 14:43 | W.PM.NPUPNS ---
Subjective NPU Subjective: Patient continues to present reporting an unwillingness to consider medication. We had a lengthy discussion about the need for treatment for him to have success. We discussed the continuing question of whether we should allow him to discharge and attempt to figure it out as he has or whether we need to engage in 96-hour hold/21-day hold and forced medication or guardianship. He continues to be a limited historian with limited spontaneous interaction. Mental Status Exam MSE Comments: This is a slender white male in hospital scrubs with poor grooming and eye contact. No abnormal movements except for psychomotor retardation. Somewhat cooperative with exam in mild to moderate distress. Speech was limited and decreased rate and volume. Mood described as fine, affect quite odd. Thought process linear but at times disorganized. Thought content: Patient denied suicidal or homicidal ideation, there were no delusions reported but clear paranoia existed, he denied auditory or visual hallucinations but concerns of internal preoccupation exist. Attention and concentration were intact and memory seemed unreliable but none were formally tested. Alert and oriented times person and place. Insight and judgment and impulse control seemed limited to impaired. Vitals/I&O/Wt Last Vital Signs Temp 98.1 F 08/24/22 06:00 Pulse 65 08/24/22 06:00 Resp 16 08/24/22 06:00 BP 103/64 08/24/22 06:00 Pulse Ox 98 08/24/22 06:00 O2 Del Method Room Air 08/24/22 06:00 08/23/22 08/24/22 08/24/22 22:59 06:59 14:59 Intake Total 240 / 240 Balance 240 / 240 Data NPU 08/20/22 00:48 08/20/22 00:48 A&P Assessment and plan (1) Psychosis: (2) Depression: (3) Suicidal ideation: (4) Suicidal ideation: (5) COPD (chronic obstructive pulmonary disease): (6) Methamphetamine use disorder, severe: Plan This is a 37-year-old white male with history of drug induced psychotic disorder currently endorsing chronic methamphetamine abuse with increased suicidal ideation in the context of homelessness and depression. 1. Patient not agreeable to medications to target depression or psychosis. 2. Continue to continue to check for safety. TO-15 checks on unit. 3. Encourage individual, group, and milieu therapy 4. Encourage sober living treatment after discharge at the highest level of care to which he is willing to commit. 5. Consider 96-hour hold versus discharge. Patient with clear disability from his psychosis but inability to consider medication. We will need to put on hold and ultimately forced medication or allowed to discharge with a plan to be more assertive if and when he returns. Involuntary Hold Information 96 Hour Hold: 96 Hour Involuntary Admission: No Attestations NPU Medical Necessity Statement*: Inpatient hospitalization is medically necessary and the clinically appropriate intervention at this time. We will monitor/start medications and make changes as indicated. His likely length of stay 2-4 days. Coding Level of Care Code Acute Code for g Fwd Diagnoses Psychosis F29 Depression F32.A Suicidal ideation R45.851 COPD (chronic obstructive pulmonary disease) J44.9 Methamphetamine use disorder, 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
[2022-08-24 21:08] VITALS: BP 101/56; PULSE 78; RESP 18; TEMP 36.6; O2SAT 96
[2022-08-25] MEDS: trazodone 50 mg Tablet PO ×2 (00:03→20:00)
[2022-08-25 06:00] VITALS: BP 112/64; PULSE 79; RESP 18; O2SAT 96
--- NOTE | 2022-08-25 12:02 | W.PM.NPUPNS ---
Subjective NPU Subjective: Patient presented today essentially unchanged. He continues to understand the limitations that his lifestyle is creating, specifically his unwillingness to take medication likely decreasing his options for people to provide help because of the condition that. He clearly does not understand the level of disability that he exists in feeling its minor when it is likely a major. But he does identify being okay at the end of the day with being homeless. Mental Status Exam MSE Comments: This is a slender white male in hospital scrubs with poor grooming and eye contact. No abnormal movements except for psychomotor retardation. Somewhat cooperative with exam in mild to moderate distress. Speech was limited and decreased rate and volume. Mood described as fine, affect quite odd. Thought process linear but at times disorganized. Thought content: Patient denied suicidal or homicidal ideation, there were no delusions reported but clear paranoia existed, he denied auditory or visual hallucinations but concerns of internal preoccupation exist. Attention and concentration were intact and memory seemed unreliable but none were formally tested. Alert and oriented times person and place. Insight and judgment and impulse control seemed limited to impaired. Vitals/I&O/Wt Last Vital Signs Temp 97.9 F 08/24/22 21:08 Pulse 79 08/25/22 06:00 Resp 18 08/25/22 06:00 BP 112/64 08/25/22 06:00 Pulse Ox 96 08/25/22 06:00 O2 Del Method Room Air 08/25/22 06:00 08/24/22 08/25/22 08/25/22 22:59 06:59 14:59 Intake Total 240 / 480 Balance 240 / 480 Data NPU 08/20/22 00:48 08/20/22 00:48 A&P Assessment and plan (1) Psychosis: (2) Depression: (3) Suicidal ideation: (4) Suicidal ideation: (5) COPD (chronic obstructive pulmonary disease): (6) Methamphetamine use disorder, severe: Plan This is a 37-year-old white male with history of drug induced psychotic disorder currently endorsing chronic methamphetamine abuse with increased suicidal ideation in the context of homelessness and depression. 1. Patient not agreeable to medications to target depression or psychosis. 2. Continue to continue to check for safety. TO-15 checks on unit. 3. Encourage individual, group, and milieu therapy 4. Encourage sober living treatment after discharge at the highest level of care to which he is willing to commit. 5. Consider 96-hour hold versus discharge. Patient with clear disability from his psychosis but inability to consider medication. We will need to put on hold and ultimately forced medication or allowed to discharge with a plan to be more assertive if and when he returns. Involuntary Hold Information 96 Hour Hold: 96 Hour Involuntary Admission: No Attestations NPU Medical Necessity Statement*: Inpatient hospitalization is medically necessary and the clinically appropriate intervention at this time. We will monitor/start medications and make changes as indicated. His likely length of stay 2-4 days. Coding Level of Care Code Acute Code for g Fwd Diagnoses Psychosis F29 Depression F32.A Suicidal ideation R45.851 COPD (chronic obstructive pulmonary disease) J44.9 Methamphetamine use disorder, 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
[2022-08-25 14:00] VITALS: BP 103/67; PULSE 91; RESP 18; TEMP 36.5; O2SAT 96
[2022-08-25 20:17] VITALS: BP 111/63; PULSE 75; RESP 18; TEMP 36.9; O2SAT 95
[2022-08-26 06:00] VITALS: BP 111/64; PULSE 73; RESP 18; TEMP 36.4; O2SAT 97
--- NOTE | 2022-08-26 07:46 | PC.NURSE ---
shift assessment denies SI/HI/AVH, stated he hasn't had a BM today but had one yesterday. no c/o pain
--- NOTE | 2022-08-26 13:15 | P.NPUPN_ITS ---
Subjective NPU Subjective: Nicholas presented today reporting no significant changes. He continues to be at what is likely baseline absent medication. We discussed working with the treatment team tomorrow when they return and looking at discharge in the next couple of days of there are no residential possibilities. We continue to discuss the fact that absent medication interventions the likelihood of any significant changes in his circumstances. He continued to stand his ground and identifying that he is not interested in taking medication. We discussed the difficulty in providing assistance for the challenges that he reports when he is unwilling to try the one thing that has proven benefits. Mental Status Exam MSE Comments: This is a slender white male in hospital scrubs with poor grooming and eye contact. No abnormal movements except for psychomotor retardation. Somewhat cooperative with exam in mild to moderate distress. Speech was limited and decreased rate and volume. Mood described as fine, affect quite odd. Thought process linear but at times disorganized. Thought content: Patient denied fournier icidal or homicidal ideation, there were no delusions reported but clear paranoia existed, he denied auditory or visual hallucinations but concerns of internal preoccupation exist. Attention and concentration were intact and memory seemed unreliable but none were formally tested. Alert and oriented times person and place. Insight and judgment and impulse control seemed limited to impaired. Vitals/I&O/Wt Last Vital Signs Temp 97.6 F 08/26/22 06:00 Pulse 73 08/26/22 06:00 Resp 18 08/26/22 06:00 BP 111/64 08/26/22 06:00 Pulse Ox 97 08/26/22 06:00 O2 Del Method Room Air 08/25/22 20:17 Weight last 48 hrs Weight 64.592 kg Data NPU 08/20/22 00:48 08/20/22 00:48 A&P Assessment and plan (1) Psychosis: (2) Depression: (3) Suicidal ideation: (4) Suicidal ideation: (5) COPD (chronic obstructive pulmonary disease): (6) Methamphetamine use disorder, severe: Plan This is a 37-year-old white male with history of drug induced psychotic disorder currently endorsing chronic methamphetamine abuse with increased suicidal ideation in the context of homelessness and depression. 1. Patient not agreeable to medications to target depression or psychosis. 2. Continue to continue to check for safety. TO-15 checks on unit. 3. Encourage individual, group, and milieu therapy 4. Encourage sober living treatment after discharge at the highest level of care to which he is willing to commit. 5. Consider 96-hour hold versus discharge. Patient with clear disability from his psychosis but inability to consider medication. We will need to put on hold and ultimately forced medication or allowed to discharge with a plan to be more assertive if and when he returns. Involuntary Hold Information 96 Hour Hold: 96 Hour Involuntary Admission: No Attestations NPU Medical Necessity Statement*: Inpatient hospitalization is medically necessary and the clinically appropriate intervention at this time. We will monitor/start medications and make changes as indicated. His likely length of stay 1-3 days. Coding Level of Care Code Acute Code for [facility] Fwd Diagnoses Psychosis F29 Depression F32.A Suicidal ideation R45.851 COPD (chronic obstructive pulmonary disease) J44.9 Methamphetamine use disorder, 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
[2022-08-26 13:51] VITALS: BP 106/57; PULSE 88; RESP 17; TEMP 36.8; O2SAT 97
[2022-08-26] MEDS: calcium carbonate 500 mg Chew Tablet 1000 MG PO (20:15)
[2022-08-26 21:09] VITALS: BP 130/71; PULSE 82; RESP 18; TEMP 36.8; O2SAT 97
[2022-08-26] MEDS: trazodone 50 mg Tablet PO (21:37)
[2022-08-27 06:00] VITALS: BP 93/55; PULSE 83; RESP 18; TEMP 36.5; O2SAT 96
[2022-08-27 13:29] VITALS: BP 112/72; PULSE 89; RESP 17; TEMP 36.8; O2SAT 96
--- NOTE | 2022-08-27 17:37 | P.NPUPN_ITS ---
Subjective NPU Subjective: Patient presented today reporting that he feels like he is doing fine. He reports the plan to continue in the community given that we do not have any residential options that are surfacing. We discussed the individual that allows for people to use tents and borrow his electricity on his property and he reports he has been there before so we agreed we would reach out to that individual on his behalf and see if that could be an option. He reported being okay with that. We discussed the likelihood of discharge in the next 48 hours. Mental Status Exam MSE Comments: This is a slender white male in hospital scrubs with poor grooming and eye contact. No abnormal movements except for psychomotor retardation. Somewhat cooperative with exam in mild to moderate distress. Speech was limited and decreased rate and volume. Mood described as fine, affect odd. Thought process linear. Thought content: Patient denied suicidal or homicidal ideation, there were no delusions reported but clear paranoia existed, he denied auditory or visual hallucinations but concerns of internal preoccupation exist. Attention and concentration were intact and memory seemed unreliable but none were formal ly tested. Alert and oriented times person and place. Insight and judgment and impulse control seemed limited to impaired. Vitals/I&O/Wt Last Vital Signs Temp 98.2 F 08/27/22 19:56 Pulse 86 08/27/22 19:56 Resp 18 08/27/22 19:56 BP 133/51 08/27/22 19:56 Pulse Ox 99 08/27/22 19:56 O2 Del Method Room Air 08/25/22 20:17 08/27/22 08/27/22 14:59 22:59 Intake Total 240 / 240 Balance 240 / 240 Weight last 48 hrs Weight 64.592 kg Data NPU 08/20/22 00:48 08/20/22 00:48 A&P Assessment and plan (1) Psychosis: (2) Depression: (3) Suicidal ideation: (4) Suicidal ideation: (5) COPD (chronic obstructive pulmonary disease): (6) Methamphetamine use disorder, severe: Plan This is a 37-year-old white male with history of drug induced psychotic disorder currently endorsing chronic methamphetamine abuse with increased suicidal ideation in the context of homelessness and depression. 1. Patient not agreeable to medications to target depression or psychosis. 2. Continue to continue to check for safety. TO-15 checks on unit. 3. Encourage individual, group, and milieu therapy 4. Encourage sober living treatment after discharge at the highest level of care to which he is willing to commit. 5. Plan for discharge with consideration of a community support that allows people to use tents and borrow electricity from his land. Involuntary Hold Information 96 Hour Hold: 96 Hour Involuntary Admission: No Attestations NPU Medical Necessity Statement*: Inpatient hospitalization is medically necessary and the clinically appropriate intervention at this time. We will monitor/start medications and make changes as indicated. His likely length of stay 1-2 days. Coding Level of Care Code Acute Code for g Fwd Diagnoses Psychosis F29 Depression F32.A Suicidal ideation R45.851 COPD (chronic obstructive pulmonary disease) J44.9 Methamphetamine use disorder, 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
[2022-08-27 19:56] VITALS: BP 133/51; PULSE 86; RESP 18; TEMP 36.8; O2SAT 99
[2022-08-27] MEDS: trazodone 50 mg Tablet PO ×2 (20:55→23:57)
[2022-08-28 06:00] VITALS: BP 102/58; PULSE 69; RESP 16; O2SAT 95
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
[2022-08-28 12:25] VITALS: BP 102/58; PULSE 69; RESP 16; O2SAT 95
== END 2022-08-28 13:29 | disposition home or self-care (01) | DRG 881 ==
LOC: ER 08-20 01:49 → NP 08-20 05:54
PROVIDERS: Admitting Provider Psychiatry & Neurology Psychiatry; Emergency Provider Emergency Medicine; Visit Provider Psychiatry & Neurology Psychiatry
DX: F32.A Depression, unspecified (principal); R45.851 Suicidal ideations; F19.259 Other psychoactive substance dependence with psychoactive substance-induced psychotic disorder, unspecified; Z59.00 Homelessness unspecified; J44.9 Chronic obstructive pulmonary disease, unspecified; F17.210 Nicotine dependence, cigarettes, uncomplicated; Z81.3 Family history of other psychoactive substance abuse and dependence; Z53.29 Procedure and treatment not carried out because of patient's decision for other reasons
CPT/HCPCS: 80053; 80306; 80307; 81003; 85025; 97150; 97165; 99238; 99285

== ENCOUNTER 2022-08-30 01:25 | Emergency (ER) | payer MEDICAID, SELFPAY ==
[2022-08-30 01:38] VITALS: BP 126/64; PULSE 68; RESP 18; TEMP 36.7; O2SAT 96; BMI 19.2
--- NOTE | 2022-08-30 01:44 | W.ED.GENADLT ---
HPI - General Adult General: Chief complaint: Animal Bite Stated complaint: bug bites?? Time Seen by Provider: 08/30/22 01:27 Source: patient Mode of arrival: ambulatory Limitations: no limitations History of Present Illness: 37-year-old male states he has had a rash to his right inner thigh in his testicles he is noticed over the last 2 days states its painful in nature denies any penile discharge or penile pain denies any worsening proving factors. Associated symptoms: Reports rash; Deny chest pain, dyspnea, headache(s), nausea or vomiting Review of Systems Const: Denies: fever(s), chills, body aches or change in appetite ENMT: Denies: throat pain or dental pain Card: Denies: chest pain Resp: Denies: dyspnea GI: Denies: abdominal pain, nausea, vomiting or diarrhea : Denies: dysuria Musc: Denies: neck pain or back pain Skin/Breast: Reports: rash Neuro: Denies: headache(s) PFS ED PFSH: Medical History COPD (chronic obstructive pulmonary disease) Social History Smoking and tobacco status: current every day smoker Physical Exam Const: COMMON NORMALS: no acute distress, patient oriented x3 and healthy appearing HENMT: COMMON NORMALS: normocephalic and atraumatic HEAD & SCALP: normocephalic and atraumatic Eye: COMMON NORMALS: conjunctivae normal CONJUNCTIVA: Yes conjunctivae normal Neck/C-Spine: COMMON NORMALS: full ROM and supple Chest: COMMONS NORMALS: normal inspection of the chest Resp: COMMON NORMALS: normal respiratory effort Cardio: COMMON NORMALS: regular rate, regular rhythm and No murmurs present (Cardio) RATE: regular rate RHYTHM: regular rhythm GI: COMMON NORMALS: Normal to inspection, nondistended, normoactive bowel sounds present, Soft to palpation, non-tender and no masses PALPATION: Yes Soft to palpation : OTHER: Vesicular rash to right groin and to the testicle Extremity: COMMON NORMALS: normal to inspection and full ROM Neuro: COMMON NORMALS: patient oriented x3, moves all extremities and no focal motor deficits Psych: COMMON NORMALS: mental status grossly normal, Normal thought process present and cooperative THOUGHT PROCESS: Normal thought process present Skin: COMMON NORMALS: no rashes or lesions noted and no wounds GENERAL SKIN EXAM: no rashes or lesions noted Course Vital Signs: Vital signs: Vital Signs Temperature 98.1 F 08/30/22 01:38 Pulse Rate 68 08/30/22 01:38 Respiratory Rate 18 08/30/22 01:38 Blood Pressure 126/64 08/30/22 01:38 Pulse Oximetry 96 08/30/22 01:38 Oxygen Delivery Me thod Room Air 08/30/22 01:38 MDM - General Adult Medical Decision Making Patient presents here with a rash appearance of likely herpes we will start him on valacyclovir he is otherwise well-appearing here stable for discharge return if worsening. Medical Records I reviewed the patient's medical records. Discharge Plan Discharge Patient Disposition: Home Clinical Impression: Herpes Condition: Stable Prescriptions: New Valtrex 1 gram tablet 1,000 mg PO BID 7 Days Qty: 14 0RF No Action trazodone 50 mg Tablet 50 mg PO BEDTIME PRN (Reason: Sleep) 30 Days Qty: 30 1RF Discharge Orders: Discharge ED (Routine); Ordered 08/30/22 Ordered By: Latoya Guzman Discharge Diet: Advance as tolerated Discharge Activity: Resume usual activity Patient Instructions: Genital Herpes - Male Coding Level of Care Code ED Mortgage Loan Officer Originator for Nicholas Lema
[2022-08-30] MEDS: valACYclovir 1,000 mg Tablet 1000 MG PO (01:54)
== END 2022-08-30 01:55 | disposition home or self-care (01) ==
PROVIDERS: Emergency Provider Emergency Medicine
DX: B00.9 Herpesviral infection, unspecified (principal); J44.9 Chronic obstructive pulmonary disease, unspecified; F17.200 Nicotine dependence, unspecified, uncomplicated
CPT/HCPCS: 99283

== ENCOUNTER 2022-08-30 08:47 | Inpatient (IN) | payer MEDICAID, SELFPAY ==
[2022-08-30 09:01] VITALS: BP 146/74; PULSE 87; RESP 18; TEMP 37; O2SAT 97; BMI 23.0
[2022-08-30 09:19] LABS: Basophils # 0.1 10^3/uL (0.0-0.1); Basophils % 0.8 %; Eosinophils # 0.2 10^3/uL (0.0-0.8); Eosinophils % 1.7 %; Hematocrit 41.4 % (42.0-52.0); Lymphocytes # 2.8 10^3/uL (0.8-4.8); Lymphocytes % 23.4 %; Mean Corpuscular HGB Conc 31.4 g/dL (30.0-36.0); Mean Corpuscular Hemoglobin 28.1 pg (28.0-34.0); Mean Corpuscular Volume 89.6 fl (80-94); Mean Platelet Volume 9.7 fL (7.4-10.4); Monocytes # 0.8 10^3/uL (0.2-0.9); Monocytes % 6.9 %; Neutrophils # 7.87 10^3/uL (1.8-7.7); Neutrophils % 66.9 %; Nucleated Red Blood Cells % 0 %; Platelet Count 268 10^3/cmm (130-400); Red Blood Count 4.62 10^6/uL (4.1-5.3); Red Cell Distribution Width 14.8 % (12.1-15.1); White Blood Count 11.8 10^3/uL (4.0-10.0)
--- NOTE | 2022-08-30 09:34 | ED.C_ITS ---
HPI - Psych General: Chief Complaint: Psychiatric Symptoms Stated Complaint: HOE, bite up by bugs Time Seen by Provider: 08/30/22 08:49 History of Present Illness: 37-year-old male presents to the emergency room complaining of pruning of his feet. He states he has bugs in his skin. He also states he is depressed and suicidal he was thinking of killing himself by cutting his wrist. He does admit to use of methamphetamines. He was recently hospitalized here and discharged on [place] [address] Mott. complaint: suicidal ideation and feels depressed Duration: getting worse History of same: Yes Relieving factors: none Exacerbating factors: none Context: recent drug abuse Associated psychiatric symptoms: none Associated symptoms: Deny auditory hallucinations, visual hallucinations, delusions, depression, homicidal ideation, suicidal ideation or racing thoughts Treatments prior to arrival: none If self harm: admits thoughts of self harm and has plan Review of Systems Const: Denies: fever(s) or chills ENMT: Denies: throat pain, ear or mastoid pain, nasal discharge or nasal congestion Card: Denies: chest pain Resp: Denies: dyspnea, productive cough or non-productive cough GI: Denies: abdominal pain, nausea or vomiting : Denies: dysuria, urinary frequency or urinary urgency Skin/Breast: Denies: rash or pruritus Psych: Denies: depression, visual hallucinations, auditory hallucinations, suicidal ideation or homicidal ideation [facility] ED PFSH: Medical History COPD (chronic obstructive pulmonary disease) Social History Smoking and tobacco status: current every day smoker Physical Exam Const: GENERAL APPEARANCE: cooperative and comfortable ORIENTATION/CONSCIOUSNESS: Yes awake, Yes oriented to person, Yes oriented to place and Yes oriented to time HENMT: COMMON NORMALS: normocephalic, atraumatic and hearing grossly normal bilaterally HEAD & SCALP: normocephalic and atraumatic Resp: COMMON NORMALS: normal respiratory effort, No retractions, No use of accessory muscles and clear to auscultation bilaterally AUSCULTATION: clear to auscultation bilaterally Cardio: COMMON NORMALS: regular rate, regular rhythm and No murmurs present (Cardio) RATE: regular rate RHYTHM: regular rhythm Extremity: COMMON NORMALS: normal to inspection, capillary refill normal, no clubbing, cyanosis or edema, no calf tenderness and no pedal edema Neuro: SENSORIUM/ORIENTATION: Yes oriented to person, Yes oriented to place and Yes oriented to time Psych: THOUGHT CONTENT: No delusions Skin: COMMON NORMALS: no rashes or lesions noted GENERAL SKIN EXAM: no rashes or lesions noted Course Vital Signs: Vital signs: Vital Signs Temperature 98.6 F 08/30/22 09:01 Pulse Rate 87 08/30/22 09:01 Respiratory Rate 18 08/30/22 09:01 Blood Pressure 146/74 08/30/22 09:01 Pulse Oximetry 99 08/30/22 10:13 Oxygen Delivery Me thod Room Air 08/30/22 13:59 MDM - Psych Medical Decision Making Patient expressing suicidal and homicidal thoughts. He has had depression is frequently been admitted discussed Dr. Mott he wants to admit the patient placement in a 96-hour hold based on his statements about suicidality. 96-hour hold completed orders written for admission. Medical Records I reviewed the patient's medical records. Lab Data I reviewed the patient's lab results. 08/30/22 09:13 08/30/22 09:13 Laboratory Results WBC 11.8 10^3/uL (4.0-10.0) H 08/30/22 09:13 RBC 4.62 10^6/uL (4.1-5.3) 08/30/22 09:13 Hgb 13.0 g/dL (11.7-16.6) 08/30/22 09:13 Hct 41.4 % (42.0-52.0) L 08/30/22 09:13 MCV 89.6 fl (80-94) 08/30/22 09:13 MCH 28.1 pg (28.0-34.0) 08/30/22 09:13 MCHC 31.4 g/dL (30.0-36.0) 08/30/22 09:13 RDW 14.8 % (12.1-15.1) 08/30/22 09:13 Plt Count 268 10^3/cmm (130-400) 08/30/22 09:13 MPV 9.7 fL (7.4-10.4) 08/30/22 09:13 Neut % (Auto) 66.9 % 08/30/22 09:13 Lymph % (Auto) 23.4 % 08/30/22 09:13 [place] % (Auto) 6.9 % 08/30/22 09:13 Eos % (Auto) 1.7 % 08/30/22 09:13 Baso % (Auto) 0.8 % 08/30/22 09:13 Neut # (Auto) 7.87 10^3/uL (1.8-7.7) H 08/30/22 09:13 Lymph # (Auto) 2.8 10^3/uL (0.8-4.8) 08/30/22 09:13 [place] # (Auto) 0.8 10^3/uL (0.2-0.9) 08/30/22 09:13 Eos # (Auto) 0.2 10^3/uL (0.0-0.8) 08/30/22 09:13 Baso # (Auto) 0.1 10^3/uL (0.0-0.1) 08/30/22 09:13 Nucleated RBC % (auto) 0 % 08/30/22 09:13 Nucleated RBCs # 0.0 /100WBC 08/30/22 09:13 Sodium 139 mmol/L (136-145) 08/30/22 09:13 Potassium 4.2 mmol/L (3.5-5.1) 08/30/22 09:13 Chloride 102 mmol/L (98-107) 08/30/22 09:13 Carbon Dioxide 23 mmol/L (22-29) 08/30/22 09:13 Anion Gap 18.2 (5-19) 08/30/22 09:13 BUN 22 mg/dL (6-20) H 08/30/22 09:13 Creatinine 1.0 mg/dL (0.7-1.2) 08/30/22 09:13 GFR Calculation 84.1 mL/min (90-130) L 08/30/22 09:13 Glucose 111 mg/dL (65-115) 08/30/22 09:13 Calculated Osmolality 292 mOsm/kg (285-295) 08/30/22 09:13 Calcium 9.2 mg/dL (8.5-10.5) 08/30/22 09:13 Total Bilirubin 1.2 mg/dL (0.15-1.2) 08/30/22 09:13 AST 46 U/L (0-40) H 08/30/22 09:13 ALT 80 U/L (0-41) H 08/30/22 09:13 Alkaline Phosphatase 121 U/L (40-130) 08/30/22 09:13 Total Protein 6.8 g/dL (6.6-8.7) 08/30/22 09:13 Albumin 4.5 g/dL (3.5-5.2) 08/30/22 09:13 Globulin 2.3 g/dL (1.3-4.6) 08/30/22 09:13 Salicylates < 0.3 mg/dL (3-10) L 08/30/22 09:13 Acetaminophen < 5.0 ug/mL (10-30) L 08/30/22 09:13 Discharge Plan Discharge Patient Disposition: Admitted As Inpatient Admit Provider: Bobby Mott Clinical Impression: Suicidal ideation, Depression, Psychosis Condition: Stable Coding Level of Care Code ED Logging Rafter Laborer for Nicholas Lema
[2022-08-30 09:47] LABS: Alanine Aminotransferase 80 U/L (0-41); Albumin Level 4.5 g/dL (3.5-5.2); Alkaline Phosphatase 121 U/L (40-130); Anion Gap 18.2 (5-19); Aspartate Amino Transferase 46 U/L (0-40); Blood Urea Nitrogen 22 mg/dL (6-20); Calcium 9.2 mg/dL (8.5-10.5); Carbon Dioxide 23 mmol/L (22-29); Chloride 102 mmol/L (98-107); Globulin 2.3 g/dL (1.3-4.6); Glomerular Filtration Rate 84.1 mL/min (90-130); Glucose 111 mg/dL (65-115); Osmolality Calculated 292 mOsm/kg (285-295); Potassium 4.2 mmol/L (3.5-5.1); Sodium 139 mmol/L (136-145); Total Bilirubin 1.2 mg/dL (0.15-1.2); Total Protein 6.8 g/dL (6.6-8.7)
[2022-08-30 09:49] LABS: Acetaminophen < 5.0 ug/mL (10-30); Salicylate < 0.3 mg/dL (3-10)
[2022-08-30 10:13] VITALS: O2SAT 99
[2022-08-30 14:00] VITALS: BP 151/86; PULSE 76; RESP 20; TEMP 37; O2SAT 98
[2022-08-30] MEDS: valACYclovir 1,000 mg Tablet 1000 MG PO ×2 (17:00→20:44)
[2022-08-30 20:46] VITALS: PULSE 82; RESP 18; TEMP 36.9; O2SAT 96
[2022-08-30] MEDS: nicotine 2 mg Gum BUCCAL (23:49)
[2022-08-30] MEDS: trazodone 50 mg Tablet PO (23:49)
[2022-08-31 06:00] VITALS: RESP 15
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
[2022-08-31] MEDS: valACYclovir 1,000 mg Tablet 1000 MG PO ×2 (09:56→20:20)
[2022-08-31] MEDS: nicotine 2 mg Gum BUCCAL (13:39)
[2022-08-31 14:00] VITALS: BP 118/69; PULSE 82; RESP 20; TEMP 36.7; O2SAT 100
[2022-08-31] MEDS: OLANZapine 5 mg ODT PO (20:28)
[2022-08-31] MEDS: ondansetron 4 MG Tablet PO (20:29)
[2022-08-31] MEDS: hyDROXYzine 25 mg Capsule 50 MG PO (20:29)
[2022-08-31 20:32] VITALS: BP 107/67; PULSE 91; RESP 17; TEMP 36.8; O2SAT 96
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
--- NOTE | 2022-08-31 22:32 | PC.NURSE ---
PT WAS RE-ASSESSED FOR FEELINGS OF HAVING A PRE-HEART ATTACK PRIOR TO HIM GOING TO BED. PT STATED, DID I SAY THAT? WELL SOMETIMES I THINK I'M HAVING PRE-HEART ATTACKS AFTER I DO STUFF. PT WAS EDUCATED TO REPORT ANY CHEST PAIN. PT WAS ASKED IF HE FELT BETTER AFTER TAKING THE MEDICATION HE WAS GIVEN BY THIS RN. PT STATED WHAT MEDICINE, YOU DIDN'T GIVE ME NONE OF THAT. PT WAS REMINDED OF PREVIOUS STATEMENTS AND THE MEDICATIONS HE WAS GIVEN. PT STATED OH YA MY STOMACH DOES FEEL BETTER, THANKS. RN THEN SHUT LIGHT OFF IN ROOM REQUESTED. PT THEN PUT THE COVERS OVER HIS HEAD AND BEGAN TO REST. UNABLE TO EDUCATE PT DUE TO INTERRUPTED THOUGHT PROCESS.
[2022-09-01 06:00] VITALS: RESP 16
--- NOTE | 2022-09-01 08:03 | PC.NURSE ---
Patient laying in bed. Patient reports feeling depressed. Patient denies anxiety, SI< HI, AVH. Patient did endorse having had thoughts of self-harm a few days before. He had thoughts of slitting his wrists with something sharp. Patient denies this now. When asked if anything in particular was making him feel suicidal, patient said depression .
[2022-09-01] MEDS: valACYclovir 1,000 mg Tablet 1000 MG PO ×2 (09:11→20:25)
[2022-09-01 14:00] VITALS: BP 135/74; PULSE 78; RESP 18; TEMP 36.6; O2SAT 98
[2022-09-01] MEDS: ARIPiprazole 10 mg Tablet PO (17:04)
--- NOTE | 2022-09-01 17:54 | P.NPUPN_ITS ---
Subjective NPU Subjective: Patient presented today continuing to be a fairly limited historian. Very limited spontaneous speech. We discussed the circumstance that we find ourselves in and to expedite the process we need to make sure that he is stable on medication. He continues to be resistant to the idea of medications. However we discussed the risks, benefits and alternatives of a trial of Abilify 10 mg p.o. every morning and he understood and agreed to proceed as is documented in this note. Mental Status Exam MSE Comments: This is a slender white male in hospital scrubs with poor grooming and eye contact. No abnormal movements except for psychomotor retardation. Somewhat cooperative with exam in mild to moderate distress. Speech was limited and decreased rate and volume. Mood described as okay, affect quite odd. Thought process linear but at times disorganized. Thought content: Patient denied tracy cidal or homicidal ideation, there were no delusions reported but clear paranoia existed, he denied auditory or visual hallucinations but concerns of internal preoccupation exist. Attention and concentration were intact and memory seemed unreliable but none were formally tested. Alert and oriented times person and place. Insight and judgment and impulse control seemed limited to impaired. Vitals/I&O/Wt Last Vital Signs Temp 98.6 F 09/01/22 20:29 Pulse 104 H 09/01/22 20:29 Resp 18 09/01/22 20:29 BP 116/72 09/01/22 20:29 Pulse Ox 96 09/01/22 20:29 O2 Del Method Room Air 09/01/22 20:29 Weight last 48 hrs Weight 66.95 kg Data NPU 08/30/22 09:13 08/30/22 09:13 A&P Assessment and plan (1) Depression: (2) Suicidal ideation: (3) Suicidal ideation: (4) COPD (chronic obstructive pulmonary disease): (5) Psychosis: (6) Methamphetamine use disorder, severe: Plan This is a 37-year-old white male with history of drug induced psychotic disorder currently endorsing chronic methamphetamine abuse with increased suicidal ideation in the context of homelessness who was just discharged a couple days ago for a similar presentation now here on a 96-hour hold with plans for more intensive treatment even if we need to go through forced means. 1. Continue off of medication. Start Abilify 10 mg p.o. every morning. 2. Continue to continue to check for safety. TO-15 checks on unit. 3. Encourage individual, group, and milieu therapy 4. Encourage sober living treatment after discharge at the highest level of care to which he is willing to commit. 5. We will file for 21-day hold on Saturday. Involuntary Hold Information 96 Hour Hold: 96 Hour Involuntary Admission: Yes 96 Hour Hold Ending Date: 09/05/22 96 Hour Hold Ending Time: 10:05 Attestations NPU Medical Necessity Statement*: Inpatient hospitalization is medically necessary and the clinically appropriate intervention at this time. We will monitor/start medications and make changes as indicated. The patient will be hospitalized for at least two midnights. His likely length of stay 7-10 days. Coding Level of Care Code Acute Code for [facility] Fwd Diagnoses Depression F32.A Suicidal ideation R45.851 COPD (chronic obstructive pulmonary disease) J44.9 Psychosis F29 Methamphetamine use disorder, 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
[2022-09-01 20:29] VITALS: BP 116/72; PULSE 104; RESP 18; TEMP 37; O2SAT 96
[2022-09-02 06:00] VITALS: BP 120/70; PULSE 68; RESP 18; TEMP 36.7; O2SAT 96
[2022-09-02] MEDS: valACYclovir 1,000 mg Tablet 1000 MG PO ×2 (08:21→20:51)
[2022-09-02] MEDS: ARIPiprazole 10 mg Tablet PO (08:21)
--- NOTE | 2022-09-02 09:00 | P.NPUPN_ITS ---
Subjective NPU Subjective: Patient presented today continuing to be a fairly limited historian. He had slightly more spontaneous speech. He denied any side effects to the medication. He reported that he is feeling a little better and seems better than yesterday per staff.. Mental Status Exam MSE Comments: This is a slender white male in hospital scrubs with poor grooming and eye contact. No abnormal movements except for psychomotor retardation. Somewhat cooperative with exam in mild to moderate distress. Speech was limited and decreased rate and volume. Mood described as okay, affect quite odd. Thought process linear but at times disorganized. Thought content: Patient denied suicidal or homicidal ideation, there were no delusions reported but clear paranoia existed, he denied auditory or visual hallucinations but concerns of internal preoccupation exist. Attention and concentration were intact and m celveland seemed unreliable but none were formally tested. Alert and oriented times person and place. Insight and judgment and impulse control seemed limited to impaired. Vitals/I&O/Wt Last Vital Signs Temp 98.0 F 09/02/22 06:00 Pulse 68 09/02/22 06:00 Resp 18 09/02/22 06:00 BP 120/70 09/02/22 06:00 Pulse Ox 96 09/02/22 06:00 O2 Del Method Room Air 09/01/22 20:29 Weight last 48 hrs Weight 66.95 kg Data NPU 08/30/22 09:13 08/30/22 09:13 A&P Assessment and plan (1) Depression: (2) Suicidal ideation: (3) Suicidal ideation: (4) COPD (chronic obstructive pulmonary disease): (5) Psychosis: (6) Methamphetamine use disorder, severe: Plan This is a 37-year-old white male with history of drug induced psychotic disorder currently endorsing chronic methamphetamine abuse with increased suicidal ideation in the context of homelessness who was just discharged a couple days ago for a similar presentation now here on a 96-hour hold with plans for more intensive treatment even if we need to go through forced means. 1. Continue current medication. Started Abilify 10 mg p.o. every morning. 2. Continue to continue to check for safety. TO-15 checks on unit. 3. Encourage individual, group, and milieu therapy 4. Encourage sober living treatment after discharge at the highest level of care to which he is willing to commit. 5. We will file for 21-day hold on Saturday. Involuntary Hold Information 96 Hour Hold: 96 Hour Involuntary Admission: Yes 96 Hour Hold Ending Date: 09/05/22 96 Hour Hold Ending Time: 10:05 Attestations NPU Medical Necessity Statement*: Inpatient hospitalization is medically necessary and the clinically appropriate intervention at this time. We will monitor/start medications and make changes as indicated. His likely length of stay 7-10 days. Coding Level of Care Code Acute Code for [facility] Fwd Diagnoses Depression F32.A Suicidal ideation R45.851 COPD (chronic obstructive pulmonary disease) J44.9 Psychosis F29 Methamphetamine use disorder, 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
[2022-09-02 14:00] VITALS: BP 100/57; PULSE 90; RESP 20; TEMP 36.8; O2SAT 96
[2022-09-02 19:42] VITALS: BP 114/69; PULSE 105; RESP 18; TEMP 36.7; O2SAT 96
[2022-09-02] MEDS: trazodone 50 mg Tablet PO (20:53)
--- NOTE | 2022-09-02 21:55 | PC.NURSE ---
IN BED RESTING. DOES WAKE UP BRIEFLY TO COMPLETE ASSESSMENT. PT DENIES PAIN. DENIES SI/HI AND AVH AT THIS TIME. PT REQUESTS SOMETHING TO HELP HIM TO SLEEP. PT WAS GIVEN TRAZODONE 50 MG ORDERED FOR SLEEP. PT TOOK MEDS THEN WENT BACK TO BED. EDUCATED ON HAND WASHING AND STD PROTECTION. PT ROLLED HIS EYES WHEN RN WAS SPEAKING AND DROPPED HEAD LIKE HE WAS EMBARRASSED BUT SAID HE UNDERSTOOD. ALL QUESTIONS ANSWERED AND SUPPORT WAS VOICED.
[2022-09-03 06:00] VITALS: BP 107/62; PULSE 65; RESP 15; O2SAT 95
[2022-09-03] MEDS: valACYclovir 1,000 mg Tablet 1000 MG PO ×2 (08:24→21:25)
[2022-09-03] MEDS: ARIPiprazole 10 mg Tablet PO (08:24)
[2022-09-03 14:00] VITALS: BP 114/63; PULSE 104; RESP 17; TEMP 36.6; O2SAT 97
--- NOTE | 2022-09-03 16:06 | W.PM.NPUPNS ---
Subjective NPU Subjective: Patient presents today continuing to report that he is doing okay with the medication. He is taking the medication daily without coaxing. We discussed our desire to ultimately have him on a long-acting injection which would allow him to by 2023 be taking the medication by injection every 2 months. This could happen sooner depending on availability given his insurance or lack thereof. He did report concerns of having bug bites but none were noted. Mental Status Exam MSE Comments: This is a slender white male in hospital scrubs with limited grooming and eye contact. No abnormal movements except for psychomotor retardation. More cooperative with exam in mild distress. Speech was limited but more spontaneous with decreased rate and volume. Mood described as okay, affect quite odd. Thought process linear and seeming more organized. Thought content: Patient denied suicidal or homicidal ideation, there were no delusions reported but clear paranoia existed, he denied auditory or visual hallucinations but concerns of internal preoccupation exist. Attention and concentration were intact and memory seemed more reliable but none were formally tested. He was alert and oriented times person and place. Insight and judgment are limited and impulse control seemed impaired but improving. Vitals/I&O/Wt Last Vital Signs Temp 97.9 F 09/03/22 14:00 Pulse 104 H 09/03/22 14:00 Resp 17 09/03/22 14:00 BP 114/63 09/03/22 14:00 Pulse Ox 97 09/03/22 14:00 O2 Del Method Room Air 09/03/22 14:00 Weight last 48 hrs Weight 66.95 kg Data NPU 08/30/22 09:13 08/30/22 09:13 A&P Assessment and plan (1) Depression: (2) Suicidal ideation: (3) Suicidal ideation: (4) COPD (chronic obstructive pulmonary disease): (5) Psychosis: (6) Methamphetamine use disorder, severe: Plan This is a 37-year-old white male with history of drug induced psychotic disorder currently endorsing chronic methamphetamine abuse with increased suicidal ideation in the context of homelessness who was just discharged a couple days ago for a similar presentation now here on a 96-hour hold with plans for more intensive treatment even if we need to go through forced means. 1. Continue current medication. Started Abilify 10 mg p.o. every morning. 2. Continue to continue to check for safety. TO-15 checks on unit. 3. Encourage individual, group, and milieu therapy 4. Encourage sober living treatment after discharge at the highest level of care to which he is willing to commit. 5. Follow-up for 21-day hold today we will await hearing date. Involuntary Hold Information 96 Hour Hold: 96 Hour Involuntary Admission: Yes 96 Hour Hold Ending Date: 09/05/22 96 Hour Hold Ending Time: 10:05 Attestations NPU Medical Necessity Statement*: Inpatient hospitalization is medically necessary and the clinically appropriate intervention at this time. We will monitor/start medications and make changes as indicated. His likely length of stay 7-10 days. Coding Level of Care Code Acute Code for [facility] Fwd Diagnoses Depression F32.A Suicidal ideation R45.851 COPD (chronic obstructive pulmonary disease) J44.9 Psychosis F29 Methamphetamine use disorder, 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
[2022-09-03 19:44] VITALS: BP 97/61; PULSE 87; RESP 16; O2SAT 95
[2022-09-03] MEDS: trazodone 50 mg Tablet PO (21:25)
[2022-09-04 06:00] VITALS: BP 106/72; PULSE 90; RESP 18; O2SAT 96
[2022-09-04] MEDS: ARIPiprazole 10 mg Tablet PO (08:28)
[2022-09-04] MEDS: valACYclovir 1,000 mg Tablet 1000 MG PO ×2 (08:28→20:52)
[2022-09-04 13:33] VITALS: BP 106/67; PULSE 98; RESP 16; TEMP 36.6; O2SAT 95
--- NOTE | 2022-09-04 14:40 | P.NPUPN_ITS ---
Subjective NPU Subjective: Patient presented today continuing to have improvement in his spontaneous speech. He had a discussion with this marketing writer about the 21-day hold hearing tomorrow and what would happen if he did not go. He identified concerns that if he did not go a warrant wouldl be issued. We tried to explain the process and that a warrant would not be issued. He suggested that being shackled and going with police was somewhat triggering. We advised him that he could choose either way and explained the process. Mental Status Exam MSE Comments: This is a slender white male in hospital scrubs with limited grooming and eye contact. No abnormal movements except for psychomotor retardation. More cooperative with exam in mild distress. Speech was limited but more spontaneous with decreased rate and volume. Mood described as okay, affect quite odd. Thought process linear and seeming more organized. Thought content: Patient denied suicidal or homicidal ideation, there were no delusions reported but clear paranoia existed, he denied auditory or visual hallucinations but concerns of internal preoccupation exist. Attention and concentration were intact and memory seemed more reliable but none were formally tested. He was alert and oriented times person and place. Insight and judgment are limited and impulse control seemed impaired but improving. Vitals/I&O/Wt Last Vital Signs Temp 97.8 F 09/04/22 13:33 Pulse 98 09/04/22 13:33 Resp 16 09/04/22 13:33 BP 106/67 09/04/22 13:33 Pulse Ox 95 09/04/22 13:33 O2 Del Method Room Air 09/04/22 06:00 Data NPU 08/30/22 09:13 08/30/22 09:13 A&P Assessment and plan (1) Depression: (2) Suicidal ideation: (3) Suicidal ideation: (4) COPD (chronic obstructive pulmonary disease): (5) Psychosis: (6) Methamphetamine use disorder, severe: Plan This is a 37-year-old white male with history of drug induced psychotic disorder currently endorsing chronic methamphetamine abuse with increased suicidal ideation in the context of homelessness who was just discharged a couple days ago for a similar presentation now here on a 96-hour hold with plans for more intensive treatment even if we need to go through forced means. 1. Continue current medication. Started Abilify 10 mg p.o. every morning. 2. Continue to continue to check for safety. TO-15 checks on unit. 3. Encourage individual, group, and milieu therapy 4. Encourage sober living treatment after discharge at the highest level of care to which he is willing to commit. 5. 21-day hold hearing tomorrow morning. Involuntary Hold Information 96 Hour Hold: 96 Hour Involuntary Admission: Yes 96 Hour Hold Ending Date: 09/05/22 96 Hour Hold Ending Time: 10:05 Attestations NPU Medical Necessity Statement*: Inpatient hospitalization is medically necessary and the clinically appropriate intervention at this time. We will monitor/start medications and make changes as indicated. His likely length of stay 7-10 days. Coding Level of Care Code Acute Code for g Fwd Diagnoses Depression F32.A Suicidal ideation R45.851 COPD (chronic obstructive pulmonary disease) J44.9 Psychosis F29 Methamphetamine use disorder, 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
[2022-09-04 20:39] VITALS: BP 114/68; PULSE 90; RESP 16; TEMP 36.8; O2SAT 96
[2022-09-04] MEDS: hyDROXYzine 25 mg Capsule 50 MG PO (20:52)
[2022-09-04] MEDS: trazodone 50 mg Tablet PO (20:53)
[2022-09-04] MEDS: ibuprofen 600 mg Tablet PO (20:57)
[2022-09-05 06:00] VITALS: BP 101/66; PULSE 69; RESP 16; O2SAT 96
[2022-09-05] MEDS: ARIPiprazole 10 mg Tablet PO (09:13)
[2022-09-05] MEDS: valACYclovir 1,000 mg Tablet 1000 MG PO ×2 (09:13→20:29)
[2022-09-05 14:00] VITALS: BP 108/63; PULSE 76; RESP 18; TEMP 36.6; O2SAT 98
--- NOTE | 2022-09-05 18:45 | W.PM.NPUPNS ---
Subjective NPU Subjective: Patient presented today reporting that he is aware of his 21-day hold hearing tomorrow and at this point plans to attend. We continue to explain that there would be no more issues if he did not go. He reports he is feeling better and feels that he can now [facility] a [facility]. We discussed that he just got kicked out of the penitentiary and that part of the difficulty has been his erratic behavior when has not been on medication in addition to his drug use. We discussed agreeing that he is improving but feeling that given his history we need to be more precise about a discharge plan and make sure he had notable improvement prior to discharge. Mental Status Exam MSE Comments: This is a slender white male in hospital scrubs with limited grooming and eye contact. No abnormal movements except for psychomotor retardation. More cooperative with exam in mild distress. Speech was limited but more spontaneous with decreased rate and volume. Mood described as okay, affect quite odd. Thought process linear and seeming more organized. Thought content: Patient denied suicidal or homicidal ideation, there were no delusions reported but clear paranoia existed, he denied auditory or visual hallucinations but concerns of internal preoccupation exist. Attention and concentration were intact and memory seemed more reliable but none were formally tested. He was alert and oriented times person and place. Insight and judgment are limited and impulse control seemed impaired but improving. Vitals/I&O/Wt Last Vital Signs Temp 97.5 F L 09/05/22 21:37 Pulse 102 H 09/05/22 21:37 Resp 18 09/05/22 21:37 BP 111/74 09/05/22 21:37 Pulse Ox 96 09/05/22 21:37 O2 Del Method Room Air 09/05/22 21:37 Data NPU 08/30/22 09:13 08/30/22 09:13 A&P Assessment and plan (1) Depression: (2) Suicidal ideation: (3) Suicidal ideation: (4) COPD (chronic obstructive pulmonary disease): (5) Psychosis: (6) Methamphetamine use disorder, severe: Plan This is a 37-year-old white male with history of drug induced psychotic disorder currently endorsing chronic methamphetamine abuse with increased suicidal ideation in the context of homelessness who was just discharged a couple days ago for a similar presentation now here on a 96-hour hold with plans for more intensive treatment even if we need to go through forced means. 1. Continue current medication. Started Abilify 10 mg p.o. every morning. We will increase to 15 mg soon. 2. Continue to continue to check for safety. TO-15 checks on unit. 3. Encourage individual, group, and milieu therapy 4. Encourage sober living treatment after discharge at the highest level of care to which he is willing to commit. 5. 21-day hold hearing tomorrow morning, 09/06/2022 at 9 AM. Involuntary Hold Information 96 Hour Hold: 96 Hour Involuntary Admission: Yes 96 Hour Hold Ending Date: 09/05/22 96 Hour Hold Ending Time: 10:05 Attestations NPU Medical Necessity Statement*: Inpatient hospitalization is medically necessary and the clinically appropriate intervention at this time. We will monitor/start medications and make changes as indicated. His likely length of stay 7-10 days. Coding Level of Care Code Acute Code for g Fwd Diagnoses Depression F32.A Suicidal ideation R45.851 COPD (chronic obstructive pulmonary disease) J44.9 Psychosis F29 Methamphetamine use disorder, 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
[2022-09-05 21:37] VITALS: BP 111/74; PULSE 102; RESP 18; TEMP 36.4; O2SAT 96
[2022-09-05] MEDS: trazodone 50 mg Tablet PO (22:19)
[2022-09-06 06:00] VITALS: RESP 18
[2022-09-06] MEDS: nicotine 2 mg Gum BUCCAL (08:31)
[2022-09-06] MEDS: ARIPiprazole 10 mg Tablet PO (08:31)
--- NOTE | 2022-09-06 10:04 | PC.NURSE ---
1003 Pt escorted off the unit by officers of the court.
--- NOTE | 2022-09-06 11:28 | PC.NURSE ---
1127 Pt back on the unit, brought back by patent lawyer.
--- NOTE | 2022-09-06 12:21 | W.PM.NPUPNS ---
Subjective NPU Subjective: Patient presented today reporting that he is feeling fine. He went to his 21-day hold hearing but not testify. No residual resentment or concerns about the therapeutic alliance noted. He reports that he understands what we are trying to accomplish but did not really comment on the discussion about the possibility of the long-acting injectable moving forward. We discussed exploring this plan over the next couple days. Mental Status Exam MSE Comments: This is a slender white male in hospital scrubs with limited grooming and eye contact. No abnormal movements except for psychomotor retardation. More cooperative with exam in mild distress. Speech was limited but more spontaneous with decreased rate and volume. Mood described as okay, affect quite odd. Thought process linear and seeming more organized. Thought content: Patient denied suicidal or homicidal ideation, there were no delusions reported but clear paranoia existed, he denied auditory or visual hallucinations but concerns of internal preoccupation exist. Attention and concentration were intact and memory seemed more reliable but none were formally tested. He was alert and oriented times person and place. Insight and judgment are limited and impulse control seemed impaired but improving. Vitals/I&O/Wt Last Vital Signs Temp 97.5 F L 09/05/22 21:37 Pulse 102 H 09/05/22 21:37 Resp 18 09/06/22 06:00 BP 111/74 09/05/22 21:37 Pulse Ox 96 09/05/22 21:37 O2 Del Method Room Air 09/05/22 21:37 Data NPU 08/30/22 09:13 08/30/22 09:13 A&P Assessment and plan (1) Depression: (2) Suicidal ideation: (3) Suicidal ideation: (4) COPD (chronic obstructive pulmonary disease): (5) Psychosis: (6) Methamphetamine use disorder, severe: Plan This is a 37-year-old white male with history of drug induced psychotic disorder currently endorsing chronic methamphetamine abuse with increased suicidal ideation in the context of homelessness who was just discharged a couple days ago for a similar presentation now here on a 96-hour hold with plans for more intensive treatment even if we need to go through forced means. 1. Continue current medication. Started Abilify 10 mg p.o. every morning. We will increase to 15 mg tomorrow. We will plan to transfer to [facility] and eventually Abilify Asimtufii as soon as available. 2. Continue to continue to check for safety. TO-15 checks on unit. 3. Encourage individual, group, and milieu therapy 4. Encourage sober living treatment after discharge at the highest level of care to which he is willing to commit. 5. Patient placed on a 21-day hold 09/06/2022. Involuntary Hold Information 96 Hour Hold: 96 Hour Involuntary Admission: Yes 96 Hour Hold Ending Date: 09/05/22 96 Hour Hold Ending Time: 10:05 Attestations NPU Medical Necessity Statement*: Inpatient hospitalization is medically necessary and the clinically appropriate intervention at this time. We will monitor/start medications and make changes as indicated. His likely length of stay 7-10 days. Coding Level of Care Code Acute Code for [facility] Fwd Diagnoses Depression F32.A Suicidal ideation R45.851 COPD (chronic obstructive pulmonary disease) J44.9 Psychosis F29 Methamphetamine use disorder, 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
[2022-09-06 14:00] VITALS: BP 100/54; PULSE 86; RESP 20; TEMP 36.3; O2SAT 97
[2022-09-06] MEDS: trazodone 50 mg Tablet PO (20:09)
[2022-09-06] MEDS: hyDROXYzine 25 mg Capsule 50 MG PO (20:09)
[2022-09-06] MEDS: acetaminophen 325 mg Tablet 650 MG PO (20:09)
--- NOTE | 2022-09-06 21:11 | PC.NURSE ---
PT IN BED RESTING. REPORTS HIS LEGS ARE HURTING AND BURNING RATES PAIN 7/10. PT ALSO SAYS HE IS VERY ANXIOUS AND HIS CHEST IS HURTING BECAUSE HE IS SO ANXIOUS. PT WAS ENCOURAGED TO DEEP BREATH UNTIL THIS RN COULD GET HIM SOME MEDICATION. PT ALSO REQUEST SOMETHING TO HELP HIM SLEEP. PT WAS INFORMED THAT THIS RN WOULD GO AND PULL HIS MEDICATIONS WHILE HE CONTINUES TO DEEP BREATHE. PT DENIES SI/HI AND AVH AT THIS TIME. SUPPORT WAS VOICED. PT WAS GIVEN VISTARIL 50 MG ORDERED FOR ANXIETY, TRAZODONE 50 MG FOR SLEEP. MEDICATIONS ARE EFFECTIVE.
[2022-09-06 22:00] VITALS: RESP 18
[2022-09-07 06:00] VITALS: BP 106/61; PULSE 76; RESP 14; O2SAT 97
[2022-09-07] MEDS: ARIPiprazole 30 mg Tablet 15 MG PO (08:09)
[2022-09-07 14:00] VITALS: BP 106/64; PULSE 91; RESP 16; TEMP 36.4; O2SAT 96
--- NOTE | 2022-09-07 17:03 | P.NPUPN_ITS ---
Subjective NPU Subjective: Patient presented today continuing to report that he is doing okay. He denied any specific issues with his medication. No side effects reported. He reported that he was not experiencing any of the bug bites or other somatic complaints that he had initially. He continues to report that he understands the plan and is hopeful for discharge sooner rather than later. Mental Status Exam MSE Comments: This is a slender white male in hospital scrubs with limited grooming and eye contact. No abnormal movements except for psychomotor retardation. More cooperative with exam in mild distress. Speech was limited but more spontaneous with decreased rate and volume. Mood described as okay, affect quite odd. Thought process linear and seeming more organized. Thought content: Patient denied suicidal or homicidal ideation, there were no delusions reported but clear paranoia existed, he denied auditory or visual hallucinations but concerns of internal preoccupation exist. Attention and concentration were intact and memory seemed more reliable but none were formally tested. He was alert and oriented times person and place. Insight and judgment are limited and impulse control seemed impaired but improving. Vitals/I&O/Wt Last Vital Signs Temp 97.5 F L 09/07/22 14:00 Pulse 91 09/07/22 14:00 Resp 16 09/07/22 14:00 BP 106/64 09/07/22 14:00 Pulse Ox 96 09/07/22 14:00 O2 Del Method Room Air 09/07/22 06:00 Data NPU 08/30/22 09:13 08/30/22 09:13 A&P Assessment and plan (1) Depression: (2) Suicidal ideation: (3) Suicidal ideation: (4) COPD (chronic obstructive pulmonary disease): (5) Psychosis: (6) Methamphetamine use disorder, severe: Plan This is a 37-year-old white male with history of drug induced psychotic disorder currently endorsing chronic methamphetamine abuse with increased suicidal elena ation in the context of homelessness who was just discharged a couple days ago for a similar presentation now here on a 96-hour hold with plans for more intensive treatment even if we need to go through forced means. 1. Continue current medication. Started Abilify 10 mg p.o. every morning. Increased to 15 mg today, 09/07/2022. We will plan to transfer to [facility] and eventually Abilify Asimtufii as soon as available. 2. Continue to continue to check for safety. TO-15 checks on unit. 3. Encourage individual, group, and milieu therapy 4. Encourage sober living treatment after discharge at the highest level of care to which he is willing to commit. 5. Patient placed on a 21-day hold 09/06/2022. Involuntary Hold Information 96 Hour Hold: 96 Hour Involuntary Admission: Yes 96 Hour Hold Ending Date: 09/05/22 96 Hour Hold Ending Time: 10:05 Attestations NPU Medical Necessity Statement*: Inpatient hospitalization is medically necessary and the clinically appropriate intervention at this time. We will monitor/start medications and make changes as indicated. His likely length of stay 7-10 days. Coding Level of Care Code Acute Code for [facility] Fwd Diagnoses Depression F32.A Suicidal ideation R45.851 COPD (chronic obstructive pulmonary disease) J44.9 Psychosis F29 Methamphetamine use disorder, 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
[2022-09-07 19:47] VITALS: BP 120/71; PULSE 86; RESP 16; TEMP 36.6; O2SAT 96
[2022-09-07] MEDS: hyDROXYzine 25 mg Capsule 50 MG PO (20:04)
[2022-09-07] MEDS: acetaminophen 325 mg Tablet 650 MG PO (20:04)
[2022-09-07] MEDS: trazodone 50 mg Tablet PO (20:04)
--- NOTE | 2022-09-07 20:33 | PC.NURSE ---
Addendum entered and electronically signed by Denise Price RN 09/07/22 23:25: PT HAS BEEN SLEEPING IN BED. MEDICATIONS WERE EFFECTIVE. Original Note: IN BED DURING ASSESSMENT. C/O LEG AND FEET PAIN 07/21, TYLENOL 650 MG GIVEN ORDERED, SEE MAR. PT DENIES SI/HI AND AVH AT THIS TIME. OBSERVED TO HAVE FLAT AFFECT, GUARDED AND SLOW TO RESPOND TO QUESTIONS. PT REQUESTS SLEEP MEDS AND SOMETHING FOR ANXIETY. PT WAS GIVEN TRAZODONE 50 MG AND VISTARIL 50 MG ORDERED. SUPPORT WAS VOICED
[2022-09-08 06:00] VITALS: RESP 16
--- NOTE | 2022-09-08 07:35 | P.NPUPN_ITS ---
Subjective NPU Subjective: Patient presented today reporting that things were going okay. He continued to have a higher level engagement which has been the case since he started the medication. He still is adjusting to the medication but we discussed a desire for him to be on the long-acting injectable. We discussed that Rhonda would return and he remembers him. He discussed the discharge planning will go through him. Mental Status Exam MSE Comments: This is a slender white male in hospital scrubs with limited grooming and eye contact. No abnormal movements except for psychomotor retardation. More cooperative with exam in mild distress. Speech was limited but more spontaneous with decreased rate and volume. Mood described as okay, affect quite odd. Thought process linear and seeming more organized. Thought content: Patient denied suicidal or homicidal ideation, there were no delusions reported but cl ear paranoia existed, he denied auditory or visual hallucinations but concerns of internal preoccupation exist. Attention and concentration were intact and memory seemed more reliable but none were formally tested. He was alert and oriented times person and place. Insight and judgment are limited and impulse control seemed impaired but improving. Vitals/I&O/Wt Last Vital Signs Temp 97.9 F 09/07/22 19:47 Pulse 86 09/07/22 19:47 Resp 16 09/08/22 06:00 BP 120/71 09/07/22 19:47 Pulse Ox 96 09/07/22 19:47 O2 Del Method Room Air 09/07/22 19:47 Data NPU 08/30/22 09:13 08/30/22 09:13 A&P Assessment and plan (1) Depression: (2) Suicidal ideation: (3) Suicidal ideation: (4) COPD (chronic obstructive pulmonary disease): (5) Psychosis: (6) Methamphetamine use disorder, severe: Plan This is a 37-year-old white male with history of drug induced psychotic disorder currently endorsing chronic methamphetamine abuse with increased suicidal ideation in the context of homelessness who was just discharged a couple days ago for a similar presentation now here on a 96-hour hold with plans for more intensive treatment even if we need to go through forced means. 1. Continue current medication. Started Abilify 10 mg p.o. every morning. Increased to 15 mg, 09/07/2022. We will plan to transfer to [facility] and eventually Abilify Asimtufii as soon as available. 2. Continue to continue to check for safety. TO-15 checks on unit. 3. Encourage individual, group, and milieu therapy 4. Encourage sober living treatment after discharge at the highest level of care to which he is willing to commit. 5. Patient placed on a 21-day hold 09/06/2022. Involuntary Hold Information 96 Hour Hold: 96 Hour Involuntary Admission: Yes 96 Hour Hold Ending Date: 09/05/22 96 Hour Hold Ending Time: 10:05 Attestations NPU Medical Necessity Statement*: Inpatient hospitalization is medically necessary and the clinically appropriate intervention at this time. We will monitor/start medications and make changes as indicated. His likely length of stay 7-10 days. Coding Level of Care Code Acute Code for [facility] Fwd Diagnoses Depression F32.A Suicidal ideation R45.851 COPD (chronic obstructive pulmonary disease) J44.9 Psychosis F29 Methamphetamine use disorder, 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
[2022-09-08] MEDS: ARIPiprazole 30 mg Tablet 15 MG PO (09:17)
[2022-09-08 14:00] VITALS: BP 114/64; PULSE 96; RESP 17; O2SAT 96
[2022-09-08 20:17] VITALS: BP 113/77; PULSE 117; RESP 18; TEMP 37; O2SAT 97
[2022-09-08] MEDS: trazodone 50 mg Tablet PO (20:22)
[2022-09-09 06:00] VITALS: BP 108/70; PULSE 96; RESP 17; TEMP 36.6; O2SAT 96
[2022-09-09] MEDS: ARIPiprazole 30 mg Tablet 15 MG PO (09:54)
[2022-09-09 13:45] VITALS: BP 114/67; PULSE 74; RESP 16; TEMP 36.9; O2SAT 95
--- NOTE | 2022-09-09 14:34 | W.PM.NPUPNS ---
Subjective NPU Subjective: William is a 37-year-old white male with psychosis likely due to methamphetamine use admitted with hallucinations and suicidal ideation. Patient had reported that he felt fine. He had continued to endorse hallucinations but stated that he was feeling much better. He had expressed desire to potentially consider substance abuse treatment to avoid reoccurring hospitalizations secondary from the emergence of psychosis. He had been redirectable and friendly on the unit but did appear significantly distracted while engaging in bizarre conversations with himself. Mental Status Exam MSE Comments: This is a slender white male in hospital scrubs with limited grooming and eye contact. No abnormal movements except for psychomotor retardation. More cooperative with exam in mild distress. Speech was more spontaneous with decreased rate and volume with increased speech latency noted. Mood described as okay, affect quite odd. Thought process linear and seeming more organized. Thought content: Patient denied suicidal or homicidal ideation, there were no delusions reported but clear paranoia existed, he was clearly responding to internal stimuli throughout much of his examination. Attention and concentration were intact and memory seemed more reliable but none were formally tested. He was alert and oriented times person and place. Insight and judgment are limited and impulse control seemed poor. Vitals/I&O/Wt Last Vital Signs Temp 98.4 F 09/09/22 13:45 Pulse 74 09/09/22 13:45 Resp 16 09/09/22 13:45 BP 114/67 09/09/22 13:45 Pulse Ox 95 09/09/22 13:45 O2 Del Method Room Air 09/09/22 06:00 Weight last 48 hrs Weight 69.059 kg Data NPU 08/30/22 09:13 08/30/22 09:13 A&P Assessment and plan (1) Depression: (2) Suicidal ideation: (3) Suicidal ideation: (4) COPD (chronic obstructive pulmonary disease): (5) Psychosis: (6) Methamphetamine use disorder, severe: Plan This is a 37-year-old white male with history of drug induced psychotic disorder currently endorsing chronic methamphetamine abuse with increased suicidal ideation in the context of homelessness who was just discharged a couple days ago for a similar presentation now here on a 96-hour hold with plans for more intensive treatment even if we need to go through forced means. 1. Continue abilify 15mg daily. We will plan to transfer to [facility] and eventually [facility] as soon as available. 2. Continue to continue to check for safety. TO-15 checks on unit. 3. Encourage individual, group, and milieu therapy 4. Encourage sober living treatment after discharge at the highest level of care to which he is willing to commit. 5. Patient placed on a 21-day hold 09/06/2022. Involuntary Hold Information 96 Hour Hold: 96 Hour Involuntary Admission: Yes 96 Hour Hold Ending Date: 09/05/22 96 Hour Hold Ending Time: 10:05 Attestations NPU Medical Necessity Statement*: Inpatient hospitalization is medically necessary and the clinically appropriate intervention at this time. We will monitor/start medications and make changes as indicated. His likely length of stay 7-10 days. Coding Level of Care Code Acute Code for [facility] Fwd Diagnoses Depression F32.A Suicidal ideation R45.851 COPD (chronic obstructive pulmonary disease) J44.9 Psychosis F29 Methamphetamine use disorder, 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
[2022-09-09 20:14] VITALS: BP 109/71; PULSE 91; RESP 18; TEMP 36.6; O2SAT 98
[2022-09-09] MEDS: acetaminophen 325 mg Tablet 650 MG PO (20:41)
[2022-09-09] MEDS: trazodone 50 mg Tablet PO (20:41)
[2022-09-09] MEDS: hyDROXYzine 25 mg Capsule 50 MG PO (20:41)
--- NOTE | 2022-09-09 22:52 | PC.NURSE ---
PT IN [facility]. COMPLETED ASSESSMENT. REPORTS LEG PAIN 5/10. DENIES SI/HI AND AVH AT THIS TIME. DOES STATE HE IS ANXIOUS AND NEEDS MEDICATIONS FOR ANXIETY AND TO HELP HIM SLEEP. PT WAS GIVEN TRAZODONE 50 MG, TYLENOL 650 MG AND VISTARIL 50 MG ORDERED. MEDICATIONS WERE EFFECTIVE.
[2022-09-10 06:00] VITALS: BP 100/61; PULSE 77; RESP 16; O2SAT 95
[2022-09-10] MEDS: ARIPiprazole 30 mg Tablet 15 MG PO (10:05)
[2022-09-10 14:00] VITALS: BP 118/79; PULSE 111; RESP 16; TEMP 36.6; O2SAT 96
--- NOTE | 2022-09-10 16:57 | W.PM.NPUPNS ---
Subjective NPU Subjective: William is a 37-year-old white male with psychosis likely due to methamphetamine use admitted with hallucinations and suicidal ideation. The patient reported being less distracted by the voices in his head. He had reported motivation to consider drug abuse treatment on an outpatient or inpatient basis. He had reported that the problems with the paranoia and hallucinations were likely caused by his substance use. He had been more redirectable today. He had denied having suicidal ideation and stated that he was not feeling as if bugs were crawling on him today. He had acknowledged having some depression at this time but states that he was feeling a little better. Mental Status Exam MSE Comments: This is a slender white male in hospital scrubs with limited grooming and improving eye contact. No abnormal movements except for mild psychomotor retardation. More cooperative with exam in mild distress. Speech was more spontaneous with decreased rate and volume with continued speech latency noted. Mood described as better. His affect appeared blunted. Thought process linear and seeming more organized. Thought content: Patient denied suicidal or homicidal ideation, there were no delusions noted., He continued to be responding to internal stimuli.. Attention and concentration were intact and memory seemed more reliable but none were formally tested. He was alert and oriented times person and place. Insight and judgment are limited and impulse control seemed improved. Vitals/I&O/Wt Last Vital Signs Temp 97.9 F 09/10/22 14:00 Pulse 111 H 09/10/22 14:00 Resp 16 09/10/22 14:00 BP 118/79 09/10/22 14:00 Pulse Ox 96 09/10/22 14:00 O2 Del Method Room Air 09/10/22 14:00 Weight last 48 hrs Weight 69.059 kg Data NPU 08/30/22 09:13 08/30/22 09:13 A&P Assessment and plan (1) Depression: (2) Suicidal ideation: (3) Suicidal ideation: (4) COPD (chronic obstructive pulmonary disease): (5) Psychosis: (6) Methamphetamine use disorder, severe: Plan This is a 37-year-old white male with history of drug induced psychotic disorder currently endorsing chronic methamphetamine abuse with increased suicidal ideation in the context of homelessness who was just discharged a couple days ago for a similar presentation now here on a 96-hour hold with plans for more intensive treatment even if we need to go through forced means. 1. Continue abilify 15mg daily. We will plan to transfer to [facility] and eventually Abilify Asimtufii as soon as available. 2. Continue to continue to check for safety. TO-15 checks on unit. 3. Encourage individual, group, and milieu therapy 4. Encourage sober living treatment after discharge at the highest level of care to which he is willing to commit. 5. Patient placed on a 21-day hold 09/06/2022. Involuntary Hold Information 96 Hour Hold: 96 Hour Involuntary Admission: Yes 96 Hour Hold Ending Date: 09/05/22 96 Hour Hold Ending Time: 10:05 Attestations NPU Medical Necessity Statement*: Inpatient hospitalization is medically necessary and the clinically appropriate intervention at this time. We will monitor/start medications and make changes as indicated. His likely length of stay 4-6 days. Coding Level of Care Code Acute Code for [facility] Fwd Diagnoses Depression F32.A Suicidal ideation R45.851 COPD (chronic obstructive pulmonary disease) J44.9 Psychosis F29 Methamphetamine use disorder, 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
[2022-09-10 20:22] VITALS: BP 104/71; PULSE 108; RESP 17; TEMP 36.9; O2SAT 97
[2022-09-10] MEDS: hyDROXYzine 25 mg Capsule 50 MG PO (20:25)
[2022-09-10] MEDS: trazodone 50 mg Tablet PO (20:25)
[2022-09-10] MEDS: acetaminophen 325 mg Tablet 650 MG PO (20:25)
--- NOTE | 2022-09-10 21:51 | PC.NURSE ---
PT CONTINUES TO ISOLATE AND WITHDRAW TO ROOM. COMES OUT FOR DRINKS AND TAKES MEDS THEN BACK TO ROOM TO REST. PT DENIES SI/HI AND AVH AT THIS TIME. DOES HAVE A BLANK STARE AND FLAT AFFECT IS NOTED WITH INTERACTIONS WITH STAFF AND PEERS. PT REQUEST ANXIETY MEDS AND SOMETHING TO HELP SLEEP. PT WAS GIVEN VISTARIL 50 MG FOR ANXIETY AND TRAZODONE 50 MG FOR SLEEP ORDERED. PT C/O PAIN IN LEGS TYLENOL GIVEN. MEDICATIONS EFFECTIVE. SUPPORT VOICED.
[2022-09-11 06:00] VITALS: BP 110/71; PULSE 82; RESP 18; O2SAT 97
[2022-09-11] MEDS: ARIPiprazole 30 mg Tablet 15 MG PO (08:37)
[2022-09-11] MEDS: nicotine 2 mg Gum BUCCAL (08:37)
--- NOTE | 2022-09-11 12:09 | W.PM.NPUPNS ---
Subjective NPU Subjective: William is a 37-year-old white male with psychosis likely due to methamphetamine use admitted with hallucinations and suicidal ideation. Patient reported no side effects from his medication. He had appeared less confused and less distracted by internal stimuli on the unit according to staff. He had continued to isolate himself in his room. He had stated that he felt that the medication was helping him. He had endorsed having some hope of receiving inpatient treatment to manage his methamphetamine use but simultaneously was stating that he wished to go home. The patient did acknowledge having some craving to use methamphetamine again. He had reported limited ability to maintain sobriety. He had reported that the voices were still present but were fainter today. Mental Status Exam MSE Comments: This is a slender white male in hospital scrubs with limited grooming and improving eye contact. No abnormal movements except for mild psychomotor retardation. More cooperative with exam in mild distress. Speech was more spontaneous with diminished rate and decreased volume with continued speech latency noted although the latency was less prominent. Mood described as better. His affect appeared blunted. Thought process linear and seeming more organized. Thought content: Patient denied suicidal or homicidal ideation, there were no delusions noted., He did not appear to be responding to internal stimuli today. Attention and concentration were intact and memory seemed more reliable but none were formally tested. He was alert and oriented times person and place. Insight and judgment are limited and impulse control seemed improved. Vitals/I&O/Wt Last Vital Signs Temp 98.5 F 09/10/22 20:22 Pulse 82 09/11/22 06:00 Resp 18 09/11/22 06:00 BP 110/71 09/11/22 06:00 Pulse Ox 97 09/11/22 06:00 O2 Del Method Room Air 09/11/22 06:00 Data NPU 08/30/22 09:13 08/30/22 09:13 A&P Assessment and plan (1) Psychosis: (2) Depression: (3) Suicidal ideation: (4) Suicidal ideation: (5) COPD (chronic obstructive pulmonary disease): (6) Methamphetamine use disorder, severe: Plan This is a 37-year-old white male with history of drug induced psychotic disorder currently endorsing chronic methamphetamine abuse with increased suicidal ideation in the context of homelessness who was just discharged a couple days ago for a similar presentation now here on a 96-hour hold with plans for more intensive treatment even if we need to go through forced means. 1. Continue abilify 15mg daily. Give abilify Maintena today. 2. Continue to continue to check for safety. TO-15 checks on unit. 3. Encourage individual, group, and milieu therapy 4. Encourage sober living treatment after discharge at the highest level of care to which he is willing to commit. 5. Patient placed on a 21-day hold 09/06/2022. Involuntary Hold Information 96 Hour Hold: 96 Hour Involuntary Admission: Yes 96 Hour Hold Ending Date: 09/05/22 96 Hour Hold Ending Time: 10:05 Attestations NPU Medical Necessity Statement*: Inpatient hospitalization is medically necessary and the clinically appropriate intervention at this time. We will monitor/start medications and make changes as indicated. His likely length of stay 4-6 days. Coding Level of Care Code Acute Code for [facility] Fwd Diagnoses Psychosis F29 Depression F32.A Suicidal ideation R45.851 COPD (chronic obstructive pulmonary disease) J44.9 Methamphetamine use disorder, 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
[2022-09-11 14:00] VITALS: BP 105/64; PULSE 89; RESP 20; TEMP 36.6; O2SAT 96
[2022-09-11] MEDS: ARIPiprazole Maintena 400 MG IM (15:38)
[2022-09-11 20:49] VITALS: BP 101/65; PULSE 75; RESP 18; TEMP 36.4; O2SAT 97
[2022-09-11] MEDS: trazodone 50 mg Tablet PO (20:50)
[2022-09-11] MEDS: hyDROXYzine 25 mg Capsule 50 MG PO (20:50)
[2022-09-12 06:00] VITALS: BP 98/60; PULSE 75; RESP 16; O2SAT 97
[2022-09-12] MEDS: ARIPiprazole 30 mg Tablet 15 MG PO (08:10)
[2022-09-12 12:50] VITALS: BP 103/65; PULSE 77; RESP 16; TEMP 36.4; O2SAT 95
--- NOTE | 2022-09-12 16:08 | P.NPUPN_ITS ---
Subjective NPU Subjective: William is a 37-year-old white male with psychosis likely due to methamphetamine use admitted with hallucinations and suicidal ideation. The patient had been hospitalized for all but 2 days in the last 20 days. Upon his last discharge she was unable to maintain sobriety and became psychotic again after the use of methamphetamine. Patient had been agreeable to direct placement in an inpatient substance abuse facility. He had reported that the voices were quiet today. He had been given Abilify Maintena 400 mg intramuscularly this morning with no complications reported. He had been less isolative on the milieu and had been more pleasant and redirectable. He had been less distracted and appeared to be more focused and goal oriented on the unit. He had reported that his mood was better at this time. He had not complained about any parasites on his body today. Mental Status Exam MSE Comments: This is a slender white male in hospital scrubs with limited grooming and improving eye contact. No abnormal movements except for mild psychomotor retardation. More cooperative with exam in mild distress. Speech was more spontaneous with improving rate of speech and normal volume with some speech latency increase but improved from the previous day. Mood described as better. His affect remained somewhat flat. Thought process linear and seeming more organized. Thought content: Patient denied suicidal or homicidal ideation, there were no delusions noted., He did not appear to be responding to internal stimuli today. Attention and concentration were intact and memory seemed more reliable but none were formally tested. He was alert and oriented times person and place. Insight and judgment are limited and impulse control seemed improved. Vitals/I&O/Wt Last Vital Signs Temp 97.6 F 09/12/22 12:50 Pulse 77 09/12/22 12:50 Resp 16 09/12/22 12:50 BP 103/65 09/12/22 12:50 Pulse Ox 95 09/12/22 12:50 O2 Del Method Room Air 09/12/22 06:00 Data NPU 08/30/22 09:13 08/30/22 09:13 A&P Assessment and plan (1) Psychosis: (2) Depression: (3) Suicidal ideation: (4) Suicidal ideation: (5) COPD (chronic obstructive pulmonary disease): (6) Methamphetamine use disorder, severe: Plan This is a 37-year-old white male with history of drug induced psychotic disorder currently endorsing chronic methamphetamine abuse with increased suicidal ideation in the context of homelessness who was just discharged a couple days ago for a similar presentation now here on a 96-hour hold with plans for more i ntensive treatment even if we need to go through forced means. 1. Continue abilify 15mg daily. Abilify Maintena given on 09/11/22. 2. Continue to continue to check for safety. TO-15 checks on unit. 3. Encourage individual, group, and milieu therapy 4. Encourage sober living treatment after discharge at the highest level of care to which he is willing to commit. 5. Patient placed on a 21-day hold 09/06/2022. 6. Patient is homeless, and had been unable to remain safe outside of the hospi tu with patient resuming use of methamphetamine and immediately becoming psychotic again. We will plan for discharge directly to inpatient substance abuse facility. Involuntary Hold Information 96 Hour Hold: 96 Hour Involuntary Admission: Yes 96 Hour Hold Ending Date: 09/05/22 96 Hour Hold Ending Time: 10:05 Attestations NPU Medical Necessity Statement*: Inpatient hospitalization is medically necessary and the clinically appropriate intervention at this time. We will monitor/start medications and make changes as indicated. His likely length of stay 4-6 days. Coding Level of Care Code Acute Code for [facility] Fwd Diagnoses Psychosis F29 Depression F32.A Suicidal ideation R45.851 COPD (chronic obstructive pulmonary disease) J44.9 Methamphetamine use disorder, 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
[2022-09-12 20:28] VITALS: BP 120/68; PULSE 100; RESP 15; TEMP 36.4; O2SAT 97
[2022-09-12] MEDS: trazodone 50 mg Tablet PO (20:28)
[2022-09-12] MEDS: OLANZapine 5 mg ODT PO (20:28)
[2022-09-12] MEDS: hyDROXYzine 25 mg Capsule 50 MG PO (20:28)
[2022-09-13 06:00] VITALS: BP 92/53; PULSE 79; RESP 15; O2SAT 96
[2022-09-13] MEDS: ARIPiprazole 30 mg Tablet 15 MG PO (08:26)
--- NOTE | 2022-09-13 08:53 | PC.NURSE ---
During morning assessment, patient denied all. All questions answered. Patient is calmly laying in bed after eating breakfast.
--- NOTE | 2022-09-13 12:10 | P.NPUDS_ITS ---
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 97.6 F 09/12/22 20:28 Pulse 79 09/13/22 06:00 Resp 15 09/13/22 06:00 BP 92/53 09/13/22 06:00 Pulse Ox 96 09/13/22 06:00 O2 Del Method Room Air 09/13/22 06:00 Discharge Plan Discharge Patient Disposition: Home Condition: Stable Prescriptions: New aripiprazole 30 mg Tablet 15 mg PO DAILY Qty: 15 1RF Abilify Maintena 400 mg suspension,extended rel recon 400 mg IM Q28D Qty: 1 1RF Rx Instructions: Due date for next IM dose is 10/09/2022 Continued valacyclovir [Valtrex] 1 gram tablet 1,000 mg PO BID 7 Days Qty: 14 0RF Rx Instructions: not started as of 08/30/22 Changed trazodone 50 mg Tablet 50 mg PO BEDTIME 30 Days Qty: 30 1RF Discharge Orders: Discharge Order (Routine); Ordered 09/13/22 Ordered By: Vinnie Ellis Referrals: [facility] [Other] [facility] [Other] - 09/13/22 1:00 pm [facility] [Outside] - 09/14/22 1:30 pm (Initial appointment. ) Maury Flores MD [Physician] - 09/24/22 1:00 pm (Establishing care. ) Discharge Diet: Usual diet Discharge Activity: Resume usual activity Patient Instructions: Aripiprazole (By mouth) (Sharifa Skaggs Discmelt), Depression (DC), Help Prevent Suicide (DC), Psychotic Disorder (DC), Opioid Safety Discharge Attestations NPU Time Spent in Discharge Care*: less than 30 min Specific Discharge Activities: Specific discharge activities: educating patient and discussing with social work case manager/social workers/dc planners Coding Level of Care Code Acute Chg FW DC note Diagnoses Psychosis F29 Depression F32.A Suicidal ideation R45.851 COPD (chronic obstructive pulmonary disease) J44.9 Methamphetamine use disorder, 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
[2022-09-13 12:14] VITALS: BP 92/53; PULSE 79; RESP 15; O2SAT 96
--- NOTE | 2022-09-13 12:51 | PC.NURSE ---
written discharge instruction discussed and left with patient. pt stated understanding and compliance. pt [facility]
== END 2022-09-13 13:05 | disposition home or self-care (01) | DRG 897 ==
LOC: ER 09:35 → NP 15:23
PROVIDERS: Admitting Provider Psychiatry & Neurology Psychiatry; Emergency Provider Family Medicine; Visit Provider Psychiatry & Neurology Psychiatry
DX: F15.151 Other stimulant abuse with stimulant-induced psychotic disorder with hallucinations (principal); R45.851 Suicidal ideations; Z59.00 Homelessness unspecified; F17.210 Nicotine dependence, cigarettes, uncomplicated; F32.A Depression, unspecified
CPT/HCPCS: 36415; 80053; 80307; 85025; 96372; 97150; 97165; 99238; 99285; Q0162

== ENCOUNTER 2022-11-10 08:06 | Emergency (ER) | payer MEDICAID, SELFPAY ==
[2022-11-10 08:20] VITALS: BP 116/69; PULSE 73; RESP 16; TEMP 36.6; O2SAT 95; BMI 25.1
--- NOTE | 2022-11-10 08:31 | ED_ITS ---
HPI - Skin/Abscess/Foreign Bdy General: Chief complaint: Skin/Abscess/Foreign Body Stated complaint: rash Time Seen by Provider: 11/10/22 08:14 Source: patient Mode of arrival: ambulatory History of Present Illness: 37-year-old male presents emergency room complaining of pruritic burning rash on his extremities and torso. Has a raised rash palms of his hands spreading proximally up his forearms also on his abdomen and lower extremities. He has no vesicles no bulla. He states it has a burning sensation to he does not know of anything he has gotten into. No fever sweats chills no shortness of breath no sore throat. He has not previously had a rash like this is not recently been in contact with any unknown plants or done any outdoor work. He has not taken anything or tried any [id number] medications for it. MD complaint: rash Onset (ago): day(s) (2) Location: chest (Abdomen), LUE and RUE Severity: moderate Quality: burning Relieving factors: none Exacerbating factors: none Associated symptoms: Reports itching; Deny arthralgias, chills, cough, fever(s), myalgias, nausea, rigidity, short of breath or vomiting Treatments prior to arrival: none Review of Systems Const: Denies: fever(s) or chills ENMT: Denies: throat pain, ear or mastoid pain, nasal discharge or nasal congestion Card: Denies: chest pain, edema, dyspnea on exertion or orthopnea Resp: Denies: dyspnea, productive cough or non-productive cough GI: Denies: nausea or vomiting : Denies: flank pain, dysuria, urinary frequency or urinary urgency Skin/Breast: Denies: rash or pruritus PFSH ED PFSH: Medical History COPD (chronic obstructive pulmonary disease) Psychiatric care Family History Family/Other Cancer Maternal aunt-unknown Family/Other Cancer Maternal aunt-brain Other CAD (coronary artery disease) Stroke Denies family history of Diabetes Clotting disorder Dementia Hyperlipidemia Psychiatric illness Chronic kidney disease (CKD) Anesthesia complication Bleeding disorder Lung disease Hypertension Social History Smoking and tobacco status: former smoker Quit status (tobacco): has quit using tobacco Former quit date comment: 08/2022 Alcohol intake: former Substance/Drug Use: former Date of last use: 08/2022 Lives independently: Yes Marital status: Single Number of children: 0 Current occupational status: unemployed and other Details: rehab facility resident Special beny needs: No Agree to transfusion: Yes Physical Exam Const: GENERAL APPEARANCE: cooperative ORIENTATION/CONSCIOUSNESS: Yes awake, Yes oriented to person, Yes oriented to place and Yes oriented to time HENMT: COMMON NORMALS: normocephalic, atraumatic and hearing grossly normal bilaterally HEAD & SCALP: normocephalic and atraumatic Resp: COMMON NORMALS: normal respiratory effort, No retractions, No use of accessory muscles and clear to auscultation bilaterally AUSCULTATION: clear to auscultation bilaterally Cardio: COMMON NORMALS: regular rate, regular rhythm and No murmurs present (Cardio) RATE: regular rate RHYTHM: regular rhythm GI: COMMON NORMALS: Soft to palpation and No hepatosplenomegaly present AUSCULTATION: Yes normoactive bowel sounds PALPATION: Yes Soft to palpation, No Tenderness to palpation present (GI), No Guarding due to palpation present (GI) and Yes No hepatosplenomegaly present Extremity: COMMON NORMALS: normal to inspection, capillary refill normal, no clubbing, cyanosis or edema, no calf tenderness and no pedal edema Neuro: SENSORIUM/ORIENTATION: Yes oriented to person, Yes oriented to place and Yes oriented to time Skin: OTHER: Rash on the extremities and palms as well as on the abdomen slightly raised p ruritic in nature some scaling on the palms and the distal forearms no bulla no vesicles. No significant excoriation minimal erythema. No signs of infection abscess. Rashes Albert call last and prominent distally of the head to the floor and fades proximally. Present in the lower abdomen and chest as well more so on the lower abdomen. Course Vital Signs: Vital signs: Vital Signs Temperature 97.9 F 11/10/22 08:20 Pulse Rate 73 11/10/22 08:20 Respiratory Rate 16 11/10/22 08:20 Blood Pressure 116/69 11/10/22 08:20 Pulse Oximetry 95 11/10/22 08:20 Oxygen Delivery Me thod Room Air 11/10/22 08:20 MDM - Skin/Abscess/Foreign Bdy Medicial Decision Making Suspected some form of contact dermatitis although document patient not sure what it might be we will start on some oral and topical steroids as well as antihistamines follow-up with primary care if not improving refer to dermatology. Medical Records I reviewed the patient's medical records. No radiology studies performed this visit Discharge Plan Discharge Patient Disposition: Home Clinical Impression: Contact dermatitis Condition: Stable Prescriptions: New prednisone 20 mg tablet 20 mg PO TID Qty: 15 0RF Rx Instructions: 1 p.o. 3 times daily x3 days, 1 p.o. twice daily x2 days, 1 p.o. daily x2 days hydroxyzine HCl 25 mg tablet 25 mg PO Q6H PRN (Reason: itching) Qty: 20 0RF triamcinolone acetonide 0.5 % cream 1 applic topical TID Qty: 15 0RF No Action nicotine (polacrilex) 4 mg gum 4 mg buccal Q2H amoxicillin 875 mg tablet 875 mg PO BID 10 Days Qty: 20 0RF trazodone 50 mg tablet 50 mg PO BEDTIME 30 Days Qty: 30 2RF benztropine 1 mg tablet 1 mg PO BID Abilify Maintena 400 mg suspension,extended rel recon 400 mg IM Q28D Qty: 1 1RF Rx Instructions: Administer one injection ( 400 mg) IM monthly Discharge Orders: Discharge ED (Routine); Ordered 11/10/22 Ordered By: Natanael Boothe Referrals: Maury Flores MD [Primary Care Provider] - Discharge Diet: Usual diet Discharge Activity: Increase activity as tolerated Patient Instructions: Opioid Safety, Pain Management Activity Restrictions/Additional Instructions: If rash does not improve follow-up with your primary care doctor for reevaluation and possible referral to dermatology if appropriate Coding Level of Care Code ED Technical Support Representative for Nicholas Lema
[2022-11-10] MEDS: diphenhydrAMINE 50 mg/mL SDV 1mL IM (08:59)
[2022-11-10] MEDS: dexamethasone 10 mg/mL INJ IM (08:59)
== END 2022-11-10 09:25 | disposition home or self-care (01) ==
PROVIDERS: Emergency Provider Family Medicine; PCP Family Medicine
DX: L25.9 Unspecified contact dermatitis, unspecified cause (principal); Z87.891 Personal history of nicotine dependence; J44.9 Chronic obstructive pulmonary disease, unspecified
CPT/HCPCS: 96372; 99284; J1100; J1200

== ENCOUNTER 2022-11-24 11:10 | Emergency (ER) | payer MEDICAID, SELFPAY ==
[2022-11-24 11:23] VITALS: BP 125/74; PULSE 95; RESP 18; TEMP 36.7; O2SAT 97; BMI 27.3
[2022-11-24 12:00] LABS: Basophils % 0.3 %; Eosinophils # 0.2 10^3/uL (0.0-0.8); Hematocrit 48.3 % (37-53); Lymphocytes # 1.2 10^3/uL (0.8-4.8); Lymphocytes % 10.5 %; Mean Corpuscular HGB Conc 31.7 g/dL (30-55); Mean Corpuscular Hemoglobin 28.5 pg (27-33); Mean Corpuscular Volume 89.9 fl (82-101); Mean Platelet Volume 10.5 fL (7.4-10.4); Monocytes # 0.2 10^3/uL (0.2-0.9); Neutrophils # 9.98 10^3/uL (1.8-7.7); Neutrophils % 84.6 %; Nucleated Red Blood Cells % 0 %; Platelet Count 153 10^3/cmm (157-399); Red Blood Count 5.37 10^6/uL (3.85-5.65); Red Cell Distribution Width 13.6 % (12.1-15.1); White Blood Count 11.78 10^3/uL (3.29-11.43)
--- NOTE | 2022-11-24 12:19 | W.ED.SKABFB ---
HPI - Skin/Abscess/Foreign Bdy General: Chief complaint: Skin/Abscess/Foreign Body Stated complaint: rash, black stool Time Seen by Provider: 11/24/22 11:20 History of Present Illness: 37-year-old male presents emergency room with complaints of dry and itchy palms for the past few days. Patient further reveals that he had a similar episode few months ago and was started on topical steroid. Symptoms did resolved after using steroid but continued after stopping the steroid. [place] any contact with chemical or aggravating factors. Patient also revealed black stools since starting oral steroid within the past few days. Denies any bloody stool, coughing up blood or vomiting blood. Associated symptoms: Deny nausea or vomiting Review of Systems General: Reports: 10 or more systems reviewed and unremarkable except in HPI and below GI: Reports: melena; Denies: nausea, vomiting, hematemesis, coffee ground emesis, heartburn, early satiety, diarrhea, constipation, belching, excessive flatus, rectal pain, rectal swelling, rectal itching, hematochezia, mucus in stool, white/light colored stool or steatorrhea Skin/Breast: Reports: other (Problems with rash, scaly and itching) PFSH ED PFSH: Medical History COPD (chronic obstructive pulmonary disease) Psychiatric care Family History Family/Other Cancer Maternal aunt-unknown Family/Other Cancer Maternal aunt-brain Other CAD (coronary artery disease) Stroke Denies family history of Diabetes Clotting disorder Dementia Hyperlipidemia Psychiatric illness Chronic kidney disease (CKD) Anesthesia complication Bleeding disorder Lung disease Hypertension Social History Smoking and tobacco/nicotine status: former use of tobacco/nicotine Quit status (tobacco/nicotine): has quit using Former quit date comment: 08/2022 Alcohol intake: former Substance/Drug Use: former Date of last use: 08/2022 Lives independently: Yes Marital status: Single Number of children: 0 Current occupational status: unemployed and other Details: rehab facility resident Special beny needs: No Agree to transfusion: Yes Physical Exam Const: COMMON NORMALS: no acute distress, average body habitus, patient oriented x3, no limitations, healthy appearing, alert and well nourished Neck/C-Spine: COMMON NORMALS: full ROM, no lymphadenopathy, supple, no meningeal signs, no JVD, Thyroid normal and No carotid bruits THYROID: Thyroid normal Chest: COMMONS NORMALS: normal inspection of the chest, normal palpation of entire chest wall, normal inspection of the breasts and normal palpation of the breasts Breast/axilla inspection: Yes normal inspection of the breasts BREAST/AXILLA PALPATION: Yes normal palpation of the breasts Resp: COMMON NORMALS: normal respiratory effort, No retractions, No use of accessory muscles, clear to auscultation bilaterally and percussion normal AUSCULTATION: clear to auscultation bilaterally PERCUSSION: percussion normal Cardio: COMMON NORMALS: no JVD GI: INSPECTION: No Laceration(s) present (GI) RECTAL EXAM: Yes visual inspection normal, Yes normal sphincter tone, Yes heme positive stool, No hemorrhoids, No Rectal prolapse, No Lesions present (GI), No Fistula present (GI), No Laceration(s) present (GI), No Excoriation present (GI), No fecal impaction, No Anal fissure(s) present, No mass, No tenderness, No Anal wink reflex intact and No Bulbocavernosis reflex present : COMMON NORMALS: Yes no CVA tenderness BLADDER/KIDNEY EXAM: Yes no CVA tenderness Back/Pelvis: COMMON NORMALS: no CVA tenderness, thoracic and lumbar spine normal to inspection, no thoracic nor lumbar tenderness, thoraco-lumbar ROM normal and straight leg raise negative bilaterally Extremity: NARRATIVE EXTREMITY EXAM: Palms of both hands with dry and scaly lesion consistent with possible dermatitis. No weeping, drainage, bleeding, redness Neuro: COMMON NORMALS: patient oriented x3 SENSORIUM/ORIENTATION: Yes alert MENINGEAL SIGNS: Yes no meningeal signs Course Vital Signs: Vital signs: Vital Signs Temperature 98.1 F 11/24/22 11:23 Pulse Rate 95 11/24/22 11:23 Respiratory Rate 18 11/24/22 11:23 Blood Pressure 125/74 11/24/22 11:23 Pulse Oximetry 97 11/24/22 11:23 Oxygen Delivery Me thod Room Air 11/24/22 11:23 MDM - Skin/Abscess/Foreign Bdy Medicial Decision Making Patient made comfortable emergency room patient had positive Hemoccult which most likely due to steroid. Patient reassured patient was stabilized CBC including hemoglobin. Follow-up PCP recommended for repeat H&H. Differential Diagnosis Likely viral exanthem, urticaria, herpes zoster, allergic reaction to drug, cellulitis, eczema, insect bites, impetigo and contact dermatitis Lab Data 11/24/22 11:34 Laboratory Results WBC 11.78 10^3/uL (3.29-11.43) H 11/24/22 11:34 RBC 5.37 10^6/uL (3.85-5.65) 11/24/22 11:34 Hgb 15.30 g/dL (11.27-16.99) 11/24/22 11:34 Hct 48.3 % (37-53) 11/24/22 11:34 MCV 89.9 fl (82-101) 11/24/22 11:34 MCH 28.5 pg (27-33) 11/24/22 11:34 MCHC 31.7 g/dL (30-55) 11/24/22 11:34 RDW 13.6 % (12.1-15.1) 11/24/22 11:34 Plt Count 153 10^3/cmm (157-399) L 11/24/22 11:34 MPV 10.5 fL (7.4-10.4) H 11/24/22 11:34 Neut % (Auto) 84.6 % 11/24/22 11:34 Lymph % (Auto) 10.5 % 11/24/22 11:34 [place] % (Auto) 2.0 % 11/24/22 11:34 Eos % (Auto) 2.0 % 11/24/22 11:34 Baso % (Auto) 0.3 % 11/24/22 11:34 Neut # (Auto) 9.98 10^3/uL (1.8-7.7) H 11/24/22 11:34 Lymph # (Auto) 1.2 10^3/uL (0.8-4.8) 11/24/22 11:34 [place] # (Auto) 0.2 10^3/uL (0.2-0.9) 11/24/22 11:34 Eos # (Auto) 0.2 10^3/uL (0.0-0.8) 11/24/22 11:34 Baso # (Auto) 0.0 10^3/uL (0.0-0.1) 11/24/22 11:34 Nucleated RBC % (auto) 0 % 11/24/22 11:34 Nucleated RBCs # 0.0 /100WBC 11/24/22 11:34 No radiology studies performed this visit Discharge Plan Discharge Patient Disposition: Home Clinical Impression: Acute irritant contact dermatitis of hand, Melena Condition: Stable Prescriptions: New Temovate 0.05 % ointment 1 applic topical BID 7 Days Qty: 60 0RF No Action nicotine (polacrilex) 4 mg gum 4 mg buccal Q2H Abilify Maintena 300 mg suspension,extended rel syring 300 mg IM Q28D Qty: 1 2RF Rx Instructions: Inject one dose of 300 mg IM monthly; discontinue 400 mg dose trazodone 100 mg tablet 100 mg PO DAILY Qty: 30 1RF Rx Instructions: Take one tablet daily at bedtime; stop 50 mg dose benztropine 1 mg tablet 1 mg PO BID triamcinolone acetonide 0.5 % cream 1 applic topical TID Qty: 15 0RF prednisone 20 mg tablet 40 mg PO DAILY 5 Days Qty: 10 0RF hydroxyzine HCl 25 mg tablet 25 mg PO Q6H PRN (Reason: itching) Qty: 20 0RF Discharge Orders: Discharge ED (Routine); Ordered 11/24/22 Ordered By: Benny Hutchinson Referrals: Maury Flores MD [Primary Care Provider] - Discharge Diet: Advance as tolerated Discharge Activity: Resume usual activity Patient Instructions: Opioid Safety, Pain Management Coding Level of Care Code ED Supervisor Transferring And Boxing for Nicholas Lema
[2022-11-24 12:40] VITALS: PULSE 82; RESP 16; O2SAT 98
== END 2022-11-24 12:41 | disposition home or self-care (01) ==
PROVIDERS: Emergency Provider Family Medicine; PCP Family Medicine
DX: L24.9 Irritant contact dermatitis, unspecified cause (principal); K92.1 Melena; Z87.891 Personal history of nicotine dependence; J44.9 Chronic obstructive pulmonary disease, unspecified
CPT/HCPCS: 85025; 99283

== ENCOUNTER 2023-02-19 18:15 | Emergency (ER) | payer MEDICAID, SELFPAY ==
[2023-02-19 18:32] VITALS: BP 133/78; PULSE 95; RESP 12; TEMP 36.7; O2SAT 95; BMI 24.3
[2023-02-19 19:29] VITALS: O2SAT 96
[2023-02-19 20:10] LABS: Influenza A by IFA negative (Negative); Influenza B by IFA negative (Negative); SARS Covid-2 Antigen negative (Negative)
--- NOTE | 2023-02-19 20:37 | W.ED.COVID ---
HPI - COVID General: Chief Complaint: COVID symptoms Stated Complaint: david taylor Time Seen by Provider: 02/19/23 19:27 Source: patient Mode of arrival: ambulatory Limitations: no limitations History of Present Illness: 37yo male presents with productive cough, vomiting a few days ago, a couple of days of diarrhea, and chest discomfort with coughing. Patient reports that he has had chills, but he does not know if he has had a fever. Patient has not taken any medications for his symptoms. He states that he does have a history of COPD and has an inhaler, but has not needed to use it. Patient denies difficulty breathing, shortness of breath, decreased urine output, any other concerns at this time. COVID 19 common symptoms: positive chills, productive cough, vomiting (a few days ago) and diarrhea; negative fever(s), dyspnea, headache(s) or throat pain COVID Results: SARS-CoV-2 Antigen (Rapid) negative (Negative) 02/19/23 19:50 Review of Systems Const: Reports: chills; Denies: fever(s) ENMT: Denies: throat pain Resp: Reports: productive cough; Denies: dyspnea GI: Reports: vomiting (a few days ago) and diarrhea Neuro: Denies: headache(s) PFSH ED PFSH: Medical History (Updated 02/19/23 @ 21:21 by NELI Gordon) GERD (gastroesophageal reflux disease) Insomnia Psychiatric care Parasitosis Suicidal ideation Depression Methamphetamine use disorder, severe COPD (chronic obstructive pulmonary disease) Family History Family/Other Cancer Maternal aunt-unknown Family/Other Cancer Maternal aunt-brain Other CAD (coronary artery disease) Stroke Denies family history of Diabetes Clotting disorder Dementia Hyperlipidemia Psychiatric illness Chronic kidney disease (CKD) Anesthesia complication Bleeding disorder Lung disease Hypertension Social History (Updated 12/07/22 @ 15:12 by Samantha Alcala LPN) Smoking and tobacco/nicotine status: current every day tobacco/nicotine user cigarettes Alcohol intake: former Substance/Drug Use: former Date of last use: 08/2022 Lives independently: Yes Marital status: Single Number of children: 0 Current occupational status: unemployed and other Details: rehab facility resident Special beny needs: No Agree to transfusion: Yes Physical Exam Const: COMMON NORMALS: no acute distress GENERAL APPEARANCE: cooperative, comfortable and well developed OTHER: Patient is ambulatory to vertical flow exam chair with no difficulty. He is able to make position changes unassisted. He is interactive with exam appropriately. No family is at bedside HENMT: COMMON NORMALS: normocephalic and Normal external nose present HEAD & SCALP: normocephalic NOSE: Normal external nose present Eye: GENERAL EYE: appearance normal, both eyes and all related structures Resp: COMMON NORMALS: normal respiratory effort and clear to auscultation bilaterally AUSCULTATION: clear to auscultation bilaterally Cardio: COMMON NORMALS: regular rate and regular rhythm RATE: regular rate RHYTHM: regular rhythm GI: COMMON NORMALS: Normal to inspection, nondistended, normoactive bowel sounds present Extremity: COMMON NORMALS: full ROM Psych: COMMON NORMALS: cooperative Course Vital Signs: Vital signs: Vital Signs Temperature 98.0 F 02/19/23 18:32 Pulse Rate 95 02/19/23 18:32 Respiratory Rate 12 02/19/23 18:32 Blood Pressure 133/78 02/19/23 18:32 Pulse Oximetry 96 02/19/23 19:29 Oxygen Delivery Me thod Room Air 02/19/23 19:29 MDM - COVID Medical Decision Making 37yo male here with a few day history of a productive cough, vomiting, diarrhea, and generalized not feeling well. Patient states that he is still having the diarrhea, but he has not had vomiting for at least a day. Patient states that he does have chest discomfort with coughing. Reports that he does have a history of COPD and has an inhaler, but has not needed to use it. Patient denies difficulty breathing, shortness of breath, abdominal pain, decreased urine, any other concerns at this time. Patient is nontoxic in appearance. Vital signs are stable. COVID antigen negative. Influenza A/B antigen negative. Chest x-ray with no sign of infiltrate or acute concerning abnormality. Mild COPD/reactive airway changes noted. Discussed all findings with patient. Advised this is likely viral in nature. Recommend avoiding respiratory irritants and using his home inhaler. Advised to follow-up with his doctor, call in a few days with an update of symptoms and to discuss recheck. Recommend return to the emergency department if any rapid worsening symptoms, difficulty breathing, shortness of breath, persistent chest pain, and as needed. Patient states understanding and has no further questions at this time. Differential Diagnosis Likely COVID 19, influenza, other viral infection and copd exacerbation Medical Records I reviewed the patient's medical records. Lab Data I reviewed the patient's lab results. Radiology Impressions Chest X-Ray 02/19/23 20:40 IMPRESSION: Stable hyperaerated lungs consistent with deep inspiratory effort vs reactive airway disease vs mild COPD . Laboratory Results Influenza Type A Ag negative (Negative) 02/19/23 19:50 Influenza Type B Ag negative (Negative) 02/19/23 19:50 SARS-CoV-2 Ag (Rapid) negative (Negative) 02/19/23 19:50 SARS-CoV-2 Antigen (Rapid) negative (Negative) 02/19/23 19:50 All radiology interpretation(s) finalized by discharge Discharge Plan Discharge Patient Disposition: Home Clinical Impression: Viral infection Condition: Stable Prescriptions: No Action nicotine (polacrilex) 4 mg gum 4 mg buccal Q2H Abilify Maintena 300 mg suspension,extended rel syring 300 mg IM Q28D Qty: 1 2RF Rx Instructions: Inject one dose of 300 mg IM monthly; discontinue 400 mg dose trazodone 100 mg tablet 100 mg PO DAILY Qty: 30 1RF Rx Instructions: Take one tablet daily at bedtime; stop 50 mg dose triamcinolone acetonide 0.5 % cream 1 applic topical TID Qty: 15 0RF budesonide-formoterol [Symbicort] 80-4.5 mcg/actuation HFA aerosol inhaler 2 puff inhalation BID Qty: 10.2 2RF omeprazole 40 mg capsule,delayed release(DR/EC) 40 mg PO DAILY Qty: 30 2RF fluticasone propionate [Flonase Allergy Relief] 50 mcg/actuation spray,suspension 2 spray intranasal .qhs Qty: 16 1RF Rx Instructions: administer into each nostril hydroxyzine HCl 25 mg tablet 25 mg PO Q6H PRN (Reason: itching) Qty: 20 0RF Discharge Orders: Discharge ED (Routine); Ordered 02/19/23 Ordered By: Rich Infante Referrals: Maury Flores MD [Primary Care Provider] - Discharge Diet: Usual diet Discharge Activity: Resume usual activity Patient Instructions: Viral Syndrome (ED) Activity Restrictions/Additional Instructions: Your COVID test and influenza A/B test were negative. There is no indication of pneumonia on your chest x-ray Given the vomiting and diarrhea as well as the cough, this is likely viral in nature. Viral illnesses typically last 7 to 14 days. Try to avoid any known respiratory irritants. Use your home inhaler as needed for wheezing and shortness of breath. Begin with clear liquids and slowly increase as tolerated Follow-up with primary care, call later this week with an update of symptoms and to discuss or recheck Return to the emergency department if any rapid worsening symptoms, difficulty breathing, shortness of breath, persistent chest pain, and as needed Coding Level of Care Code ED Preservative Filler Machine Operator for Nicholas Lema
--- NOTE | 2023-02-19 20:40 | XRR_ITS ---
PROCEDURE INFORMATION: Exam: XR Chest Exam date and time: 02/19/2023 8:48 PM Age: 37 years old Clinical indication: Patient HX: C/O productive cough and fever TECHNIQUE: Imaging protocol: Radiologic exam of the chest. Views: 1 view. COMPARISON: CR XR chest 1V portable [id number] 08/09/2022 6:35 PM FINDINGS: Lungs: Stable hyperaerated lungs consistent with deep inspiratory effort vs reactive airway disease vs mild COPD . Pleural spaces: Unremarkable. No pleural effusion. No pneumothorax. Heart/Mediastinum: Unremarkable. No cardiomegaly. Bones/joints: Unremarkable. XR/XR chest 1V portable [id number] IMPRESSION: Stable hyperaerated lungs consistent with deep inspiratory effort vs reactive airway disease vs mild COPD .
[2023-02-19 21:25] VITALS: BP 136/71; PULSE 78; RESP 18; O2SAT 97
== END 2023-02-19 21:34 | disposition home or self-care (01) ==
PROVIDERS: Emergency Provider Nurse Practitioner; PCP Family Medicine
DX: B34.9 Viral infection, unspecified (principal); Z11.52 Encounter for screening for COVID-19; Z72.0 Tobacco use; J44.9 Chronic obstructive pulmonary disease, unspecified
CPT/HCPCS: 71045; 87426; 87804; 99284

== ENCOUNTER 2023-03-16 23:04 | Emergency (ER) | payer MEDICAID, SELFPAY ==
[2023-03-16 23:07] VITALS: BP 124/71; PULSE 100; RESP 22; TEMP 36.8; O2SAT 93; BMI 25.4
[2023-03-16 23:51] LABS: Basophils # 0.1 10^3/uL (0.0-0.1); Basophils % 0.6 %; Eosinophils # 0.2 10^3/uL (0.0-0.8); Eosinophils % 2.1 %; Hematocrit 46.4 % (37-53); Lymphocytes # 4.2 10^3/uL (0.8-4.8); Lymphocytes % 37.2 %; Mean Corpuscular HGB Conc 32.5 g/dL (30-55); Mean Corpuscular Hemoglobin 28.3 pg (27-33); Mean Corpuscular Volume 87.1 fl (82-101); Mean Platelet Volume 9.6 fL (7.4-10.4); Monocytes # 0.7 10^3/uL (0.2-0.9); Monocytes % 5.8 %; Neutrophils # 6.11 10^3/uL (1.8-7.7); Neutrophils % 53.9 %; Nucleated Red Blood Cells % 0 %; Platelet Count 312 10^3/cmm (157-399); Red Blood Count 5.33 10^6/uL (3.85-5.65); Red Cell Distribution Width 13.1 % (12.1-15.1); White Blood Count 11.34 10^3/uL (3.29-11.43)
[2023-03-17 00:08] LABS: Alanine Aminotransferase 36 U/L (0-41); Albumin Level 4.3 g/dL (3.5-5.2); Alkaline Phosphatase 126 U/L (40-130); Anion Gap 17.7 (5-19); Aspartate Amino Transferase 20 U/L (0-40); Blood Urea Nitrogen 21 mg/dL (6-20); Calcium 9.1 mg/dL (8.5-10.5); Carbon Dioxide 21 mmol/L (22-29); Chloride 100 mmol/L (98-107); Glomerular Filtration Rate 75.3 mL/min (90-130); Glucose 139 mg/dL (65-115); Osmolality Calculated 285 mOsm/kg (285-295); Potassium 3.7 mmol/L (3.5-5.1); Sodium 135 mmol/L (136-145); Total Bilirubin 0.9 mg/dL (0.15-1.2); Total Protein 7.3 g/dL (6.6-8.7)
[2023-03-17 00:13] LABS: Acetaminophen < 5.0 ug/mL (10-30); Alcohol Level < 10 mg/dL (0-10); Salicylate < 0.3 mg/dL (3-10)
--- NOTE | 2023-03-17 00:47 | ED.C_ITS ---
HPI - Psych 2 General: Chief Complaint: Psychiatric Symptoms Stated Complaint: Dehydrated\SI\Organs Hurts Time Seen by Provider: 03/16/23 23:33 History of Present Illness: 37-year-old male with a history of psych iatric illness. He presents with epigastric abdominal pain, vomiting, cough, feverish feeling, for the last few days. This evening, he noted that he began to feel somewhat suicidal and that he was going to take his fishing knife and cut his wrist. He denies recent substance abuse. Review of Systems 2 Const: Denies: fever(s), chills or body aches Eyes: Denies: change in vision ENMT: Reports: throat pain Card: Denies: chest pain or palpitations Resp: Reports: dyspnea and productive cough; Denies: non-productive cough or wheezing GI: Reports: abdominal pain, nausea, vomiting, diarrhea and hematochezia Skin/Breast: Denies: rash Neuro: Denies: headache(s), weakness in extremities, dizziness or confusion PFSH ED 2 PFSH: Medical History GERD (gastroesophageal reflux disease) Insomnia Psychiatric care Parasitosis Suicidal ideation Depression Methamphetamine use disorder, severe COPD (chronic obstructive pulmonary disease) Family History Family/Other Cancer Maternal aunt-unknown Family/Other Cancer Maternal aunt-brain Other CAD (coronary artery disease) Stroke Denies family history of Diabetes Clotting disorder Dementia Hyperlipidemia Psychiatric illness Chronic kidney disease (CKD) Anesthesia complication Bleeding disorder Lung disease Hypertension Social History Smoking and tobacco/nicotine status: current every day tobacco/nicotine user cigarettes Alcohol intake: former Substance/Drug Use: former Date of last use: 08/2022 Lives independently: Yes Marital status: Single Number of children: 0 Current occupational status: unemployed and other Details: rehab facility resident Special beny needs: No Agree to transfusion: Yes Physical Exam 2 Const: COMMON NORMALS: no acute distress GENERAL APPEARANCE: cooperative; not ill appearing and not frail appearing HENMT: COMMON NORMALS: normocephalic, atraumatic and Normal external nose present HEAD & SCALP: normocephalic and atraumatic FACE & SINUS: normal facial exam and face symmetric NOSE: Normal external nose present Eye: COMMON NORMALS: Equal, round and reactive pupils present and EOMs intact bilaterally PUPIL: Yes Equal, round and reactive pupils present Neck/C-Spine: GENERAL: Yes trachea midline Chest: CHEST: Yes Symmetrical chest wall rise Resp: COMMON NORMALS: normal respiratory effort, No retractions, No use of accessory muscles and clear to auscultation bilaterally AUSCULTATION: clear to auscultation bilaterally Cardio: COMMON NORMALS: regular rate and regular rhythm RATE: regular rate RHYTHM: regular rhythm GI: COMMON NORMALS: Normal to inspection, nondistended, normoactive bowel sounds present Extremity: COMMON NORMALS: no pedal edema Neuro: JONATHON COMA SCALE: document GCS findings Jonathon coma scale eye opening: Spontaneous Menard coma scale verbal response: Orientated Jonathon coma scale motor response: Obey commands Menard coma scale total score: 15 S ENSORY EXAM: Yes extremities (intact) Psych: COMMON NORMALS: speech normal SPEECH: Yes normal speech Skin: COMMON NORMALS: no rashes or lesions noted GENERAL SKIN EXAM: no rashes or lesions noted Course 2 Vital Signs: Vital signs: Vital Signs Temperature 98.2 F 03/16/23 23:07 Pulse Rate 100 03/16/23 23:07 Respiratory Rate 22 H 03/16/23 23:07 Blood Pressure 124/71 03/16/23 23:07 Pulse Oximetry 93 03/16/23 23:07 Oxygen Delivery Me thod Room Air 03/16/23 23:07 [facility] - Psych Medical Decision Making Patient is positive for amphetamines. Laboratory is otherwise not terribly remarkable. Vitals are good. Patient is feeling improved. He states that he is no longer suicidal. He has no intentions or plan currently to hurt himself. He is asking for a Medicaid ride to get back home. He states that he has treatment class to attend on Saturday. Medically, he is stable. He will be allowed discharge. Lab Data 03/16/23 23:47 03/16/23 23:47 Laboratory Results WBC 11.34 10^3/uL (3.29-11.43) 03/16/23 23:47 RBC 5.33 10^6/uL (3.85-5.65) 03/16/23 23:47 Hgb 15.10 g/dL (11.27-16.99) 03/16/23 23:47 Hct 46.4 % (37-53) 03/16/23 23:47 MCV 87.1 fl (82-101) 03/16/23 23:47 MCH 28.3 pg (27-33) 03/16/23 23:47 MCHC 32.5 g/dL (30-55) 03/16/23 23:47 RDW 13.1 % (12.1-15.1) 03/16/23 23:47 Plt Count 312 10^3/cmm (157-399) 03/16/23 23:47 MPV 9.6 fL (7.4-10.4) 03/16/23 23:47 Neut % (Auto) 53.9 % 03/16/23 23:47 Lymph % (Auto) 37.2 % 03/16/23 23:47 [place] % (Auto) 5.8 % 03/16/23 23:47 Eos % (Auto) 2.1 % 03/16/23 23:47 Baso % (Auto) 0.6 % 03/16/23 23:47 Neut # (Auto) 6.11 10^3/uL (1.8-7.7) 03/16/23 23:47 Lymph # (Auto) 4.2 10^3/uL (0.8-4.8) 03/16/23 23:47 [place] # (Auto) 0.7 10^3/uL (0.2-0.9) 03/16/23 23:47 Eos # (Auto) 0.2 10^3/uL (0.0-0.8) 03/16/23 23:47 Baso # (Auto) 0.1 10^3/uL (0.0-0.1) 03/16/23 23:47 Nucleated RBC % (auto) 0 % 03/16/23 23:47 Nucleated RBCs # 0.0 /100WBC 03/16/23 23:47 Sodium 135 mmol/L (136-145) L 03/16/23 23:47 Potassium 3.7 mmol/L (3.5-5.1) 03/16/23 23:47 Chloride 100 mmol/L (98-107) 03/16/23 23:47 Carbon Dioxide 21 mmol/L (22-29) L 03/16/23 23:47 Anion Gap 17.7 (5-19) 03/16/23 23:47 BUN 21 mg/dL (6-20) H 03/16/23 23:47 Creatinine 1.1 mg/dL (0.7-1.2) 03/16/23 23:47 GFR Calculation 75.3 mL/min (90-130) L 03/16/23 23:47 Glucose 139 mg/dL (65-115) H 03/16/23 23:47 Calculated Osmolality 285 mOsm/kg (285-295) 03/16/23 23:47 Calcium 9.1 mg/dL (8.5-10.5) 03/16/23 23:47 Total Bilirubin 0.9 mg/dL (0.15-1.2) 03/16/23 23:47 AST 20 U/L (0-40) 03/16/23 23:47 ALT 36 U/L (0-41) 03/16/23 23:47 Alkaline Phosphatase 126 U/L (40-130) 03/16/23 23:47 Total Protein 7.3 g/dL (6.6-8.7) 03/16/23 23:47 Albumin 4.3 g/dL (3.5-5.2) 03/16/23 23:47 Globulin 3.0 g/dL (1.3-4.6) 03/16/23 23:47 Urine Color Dark yellow (Yellow) 03/17/23 02:36 Urine Appearance Clear (CLEAR) 03/17/23 02:36 Urine pH 5 (5-7) 03/17/23 02:36 Ur Specific [place] 1.020 (1.005-1.030) 03/17/23 02:36 Urine Protein Neg (Negative) 03/17/23 02:36 Urine Glucose (UA) Norm (Normal) 03/17/23 02:36 Urine Ketones Negative (Negative) 03/17/23 02:36 Urine Blood Neg (Negative) 03/17/23 02:36 Urine Nitrate Negative (Negative) 03/17/23 02:36 Urine Bilirubin Neg (Negative) 03/17/23 02:36 Urine Urobilinogen Norm mg/dL (Negative) 03/17/23 02:36 Ur Leukocyte Esterase Negative (Negative) 03/17/23 02:36 Salicylates < 0.3 mg/dL (3-10) L 03/16/23 23:47 Urine Opiates Screen Negative ng/mL (Negative) 03/17/23 02:36 Acetaminophen < 5.0 ug/mL (10-30) L 03/16/23 23:47 Ur Barbiturates Screen Negative ng/mL (Negative) 03/17/23 02:36 Ur Phencyclidine Scrn Negative ng/mL (Negative) 03/17/23 02:36 Ur Amphetamines Screen Positive ng/mL (Negative) H 03/17/23 02:36 U Benzodiazepines Scrn Negative ng/mL (Negative) 03/17/23 02:36 Urine Cocaine Screen Negative ng/mL (Negative) 03/17/23 02:36 U Marijuana (THC) Screen Negative ng/mL (Negative) 03/17/23 02:36 Ethyl Alcohol < 10 mg/dL (0-10) 03/16/23 23:47 No radiology studies performed this visit Discharge Plan Discharge Patient Disposition: Home Clinical Impression: Depression Condition: Stable Prescriptions: No Action Abilify Maintena 300 mg suspension,extended rel syring 300 mg IM Q28D Qty: 1 5RF Rx Instructions: Inject one dose of 300 mg IM monthly trazodone 100 mg tablet 100 mg PO DAILY Qty: 30 5RF Rx Instructions: Take one tablet daily at bedtime budesonide-formoterol [Symbicort] 80-4.5 mcg/actuation HFA aerosol inhaler 2 puff inhalation BID Qty: 10.2 2RF fluticasone propionate [Flonase Allergy Relief] 50 mcg/actuation spray,suspension 2 spray intranasal .qhs Qty: 16 1RF Rx Instructions: administer into each nostril ibuprofen 400 mg tablet 400 mg PO TID PRN (Reason: pain) Qty: 60 0RF Discharge Orders: Discharge ED (Routine); Ordered 03/17/23 Ordered By: Rusty Santiago Referrals: Maury Flores MD [Primary Care Provider] - 1-3 days Patient Instructions: Depression (ED), Help Prevent Suicide (ED), Opioid Safety, Pain Management Activity Restrictions/Additional Instructions: Return for any return of thoughts or wishes to harm yourself or anyone else. Follow-up with your doctor this week. Coding Level of Care Code ED Senior Database Administrator for Nicholas Lema
[2023-03-17] MEDS: lidocaine 2% viscous 15 ML, aluminum-mag hydrox-simethicon 30 ML, sucralfate oral liq 1 GM PO (01:04)
[2023-03-17 02:39] LABS: Add Urine Microscopic? NO; Charge for UA Resulting for Rev
[2023-03-17 02:41] LABS: Bilirubin Urine Neg (Negative); Blood Urine Neg (Negative); Glucose Urine UA Norm (Normal); Ketones Urine Negative (Negative); Leukocyte Esterase Urine Negative (Negative); Nitrate Urine Negative (Negative); Protein Urine Neg (Negative); Urine Appearance Clear (CLEAR); Urine Color Dark Yellow (Yellow); Urobilinogen Urine Norm (Negative); pH Urine 5 (5-7)
[2023-03-17 02:51] LABS: Amphetamines Screen Urine Positive (Negative); Barbiturates Screen Urine Negative (Negative); Benzodiazepines Screen Urine Negative (Negative); Cocaine Screen Urine Negative (Negative); Opiate Screen Urine Negative (Negative); PCP Screen Urine Negative (Negative); THC Screen Urine Negative (Negative)
[2023-03-17 03:48] VITALS: PULSE 82; RESP 16; O2SAT 98
== END 2023-03-17 03:49 | disposition home or self-care (01) ==
PROVIDERS: Emergency Provider Emergency Medicine; PCP Family Medicine
DX: F32.A Depression, unspecified (principal); F17.210 Nicotine dependence, cigarettes, uncomplicated; J44.9 Chronic obstructive pulmonary disease, unspecified
CPT/HCPCS: 36415; 80053; 80306; 80307; 81003; 85025; 99283

== ENCOUNTER 2023-03-20 14:31 | Emergency (ER) | payer MEDICAID, SELFPAY ==
[2023-03-20 14:34] VITALS: BP 109/55; PULSE 81; RESP 16; TEMP 36.6; O2SAT 97
[2023-03-20 15:19] LABS: Basophils # 0.1 10^3/uL (0.0-0.1); Basophils % 0.9 %; Eosinophils # 0.2 10^3/uL (0.0-0.8); Eosinophils % 1.5 %; Hematocrit 47.6 % (37-53); Lymphocytes % 24.1 %; Mean Corpuscular HGB Conc 32.1 g/dL (30-55); Mean Corpuscular Hemoglobin 28.6 pg (27-33); Mean Platelet Volume 9.8 fL (7.4-10.4); Monocytes # 0.7 10^3/uL (0.2-0.9); Monocytes % 5.3 %; Neutrophils # 8.46 10^3/uL (1.8-7.7); Neutrophils % 67.9 %; Nucleated Red Blood Cells % 0 %; Platelet Count 318 10^3/cmm (157-399); Red Blood Count 5.35 10^6/uL (3.85-5.65); Red Cell Distribution Width 12.9 % (12.1-15.1); White Blood Count 12.46 10^3/uL (3.29-11.43)
--- NOTE | 2023-03-20 15:32 | ED_ITS ---
HPI - Abdominal Pain 2 General: Chief Complaint: Abdominal Pain Stated Complaint: blood in stool, abd pain Time Seen by Provider: 03/20/23 14:39 Source: patient Mode of arrival: ambulatory Limitations: no limitations History of Present Illness: 37-year-old male who is very well-known to the ER states that he had some epigastric abdominal pain over the last 2 hours he states that his stool seemed dark in nature denies any fevers denies any severe pains denies any worsening improving factors. Associated Symptoms: Reports hematochezia; Denies chills, diarrhea, fever(s), nausea and vomiting Review of Systems 2 Const: Denies: fever(s), chills, body aches or change in appetite ENMT: Denies: throat pain or dental pain Card: Denies: chest pain Resp: Denies: dyspnea GI: Reports: abdominal pain and hematochezia; Denies: nausea, vomiting or diarrhea Musc: Denies: neck pain or back pain Skin/Breast: Denies: rash Neuro: Denies: headache(s) PFSH ED 2 PFSH: Medical History GERD (gastroesophageal reflux disease) Insomnia Psychiatric care Parasitosis Suicidal ideation Depression Methamphetamine use disorder, severe COPD (chronic obstructive pulmonary disease) Family History Family/Other Cancer Maternal aunt-unknown Family/Other Cancer Maternal aunt-brain Other CAD (coronary artery disease) Stroke Denies family history of Diabetes Clotting disorder Dementia Hyperlipidemia Psychiatric illness Chronic kidney disease (CKD) Anesthesia complication Bleeding disorder Lung disease Hypertension Social History Smoking and tobacco/nicotine status: current every day tobacco/nicotine user cigarettes Alcohol intake: former Substance/Drug Use: former Date of last use: 08/2022 Lives independently: Yes Marital status: Single Number of children: 0 Current occupational status: unemployed and other Details: rehab facility resident Special beny needs: No Agree to transfusion: Yes Physical Exam 2 Const: COMMON NORMALS: no acute distress, patient oriented x3 and healthy appearing HENMT: COMMON NORMALS: normocephalic and atraumatic HEAD & SCALP: n ormocephalic and atraumatic Neck/C-Spine: COMMON NORMALS: full ROM and supple Chest: COMMONS NORMALS: normal inspection of the chest Resp: COMMON NORMALS: normal respiratory effort Cardio: COMMON NORMALS: regular rate, regular rhythm and No murmurs present (Cardio) RATE: regular rate RHYTHM: regular rhythm GI: COMMON NORMALS: Normal to inspection, nondistended, normoactive bowel sounds present, Soft to palpation, non-tender and no masses PALPATION: Yes Soft to palpation RECTAL EXAM: Yes visual inspection normal and Yes heme negative stool Extremity: COMMON NORMALS: normal to inspection and full ROM Neuro: COMMON NORMALS: patient oriented x3, moves all extremities and no focal motor deficits Psych: COMMON NORMALS: mental status grossly normal, Normal thought process present and cooperative THOUGHT PROCESS: Normal thought process present Skin: COMMON NORMALS: no rashes or lesions noted and no wounds GENERAL SKIN EXAM: no rashes or lesions noted Course 2 Vital Signs: Vital signs: Vital Signs Temperature 97.9 F 03/20/23 14:34 Pulse Rate 81 03/20/23 14:34 Respiratory Rate 16 03/20/23 14:34 Blood Pressure 109/55 03/20/23 14:34 Pulse Oximetry 97 03/20/23 14:34 Oxygen Delivery Me thod Room Air 03/20/23 14:34 MDM - Abdominal Pain Medical Decision Making Patient presents abdominal pain with concern for GI bleed rectal exam shows no blood blood work here is normal abdominal exam is benign he is stable for discharge return if worsening. Medical Records I reviewed the patient's medical records. Lab Data I reviewed the patient's lab results. 03/20/23 14:59 03/20/23 14:59 Labs/Radiology: Laboratory Results WBC 12.46 10^3/uL (3.29-11.43) H 03/20/23 14:59 RBC 5.35 10^6/uL (3.85-5.65) 03/20/23 14:59 Hgb 15.30 g/dL (11.27-16.99) 03/20/23 14:59 Hct 47.6 % (37-53) 03/20/23 14:59 MCV 89.0 fl (82-101) 03/20/23 14:59 MCH 28.6 pg (27-33) 03/20/23 14:59 MCHC 32.1 g/dL (30-55) 03/20/23 14:59 RDW 12.9 % (12.1-15.1) 03/20/23 14:59 Plt Count 318 10^3/cmm (157-399) 03/20/23 14:59 MPV 9.8 fL (7.4-10.4) 03/20/23 14:59 Neut % (Auto) 67.9 % 03/20/23 14:59 Lymph % (Auto) 24.1 % 03/20/23 14:59 [place] % (Auto) 5.3 % 03/20/23 14:59 Eos % (Auto) 1.5 % 03/20/23 14:59 Baso % (Auto) 0.9 % 03/20/23 14:59 Neut # (Auto) 8.46 10^3/uL (1.8-7.7) H 03/20/23 14:59 Lymph # (Auto) 3.0 10^3/uL (0.8-4.8) 03/20/23 14:59 [place] # (Auto) 0.7 10^3/uL (0.2-0.9) 03/20/23 14:59 Eos # (Auto) 0.2 10^3/uL (0.0-0.8) 03/20/23 14:59 Baso # (Auto) 0.1 10^3/uL (0.0-0.1) 03/20/23 14:59 Nucleated RBC % (auto) 0 % 03/20/23 14:59 Nucleated RBCs # 0.0 /100WBC 03/20/23 14:59 PT 12.80 SECONDS (12.1-14.9) 03/20/23 14:59 INR 0.94 (0.8-1.2) 03/20/23 14:59 Sodium 139 mmol/L (136-145) 03/20/23 14:59 Potassium 4.3 mmol/L (3.5-5.1) 03/20/23 14:59 Chloride 102 mmol/L (98-107) 03/20/23 14:59 Carbon Dioxide 28 mmol/L (22-29) 03/20/23 14:59 Anion Gap 13.3 (5-19) 03/20/23 14:59 BUN 14 mg/dL (6-20) 03/20/23 14:59 Creatinine 1.3 mg/dL (0.7-1.2) H 03/20/23 14:59 GFR Calculation 62.1 mL/min (90-130) L 03/20/23 14:59 Glucose 92 mg/dL (65-115) 03/20/23 14:59 Calculated Osmolality 288 mOsm/kg (285-295) 03/20/23 14:59 Calcium 8.8 mg/dL (8.5-10.5) 03/20/23 14:59 Total Bilirubin 0.7 mg/dL (0.15-1.2) 03/20/23 14:59 AST 21 U/L (0-40) 03/20/23 14:59 ALT 32 U/L (0-41) 03/20/23 14:59 Alkaline Phosphatase 120 U/L (40-130) 03/20/23 14:59 Total Protein 7.1 g/dL (6.6-8.7) 03/20/23 14:59 Albumin 4.2 g/dL (3.5-5.2) 03/20/23 14:59 Globulin 2.9 g/dL (1.3-4.6) 03/20/23 14:59 No radiology studies performed this visit Discharge Plan Discharge Patient Disposition: Home Clinical Impression: Abdominal pain Condition: Stable Prescriptions: No Action Abilify Maintena 300 mg suspension,extended rel syring 300 mg IM Q28D Qty: 1 5RF Rx Instructions: Inject one dose of 300 mg IM monthly trazodone 100 mg tablet 100 mg PO DAILY Qty: 30 5RF Rx Instructions: Take one tablet daily at bedtime escitalopram oxalate 10 mg tablet 10 mg PO DAILY Qty: 30 1RF Rx Instructions: For four days, take one-half tablet daily, then increase to 1 tablet daily budesonide-formoterol [Symbicort] 80-4.5 mcg/actuation HFA aerosol inhaler 2 puff inhalation BID Qty: 10.2 2RF fluticasone propionate [Flonase Allergy Relief] 50 mcg/actuation spray,suspension 2 spray intranasal .qhs Qty: 16 1RF Rx Instructions: administer into each nostril ibuprofen 400 mg tablet 400 mg PO TID PRN (Reason: pain) Qty: 60 0RF Discharge Orders: Discharge ED (Routine); Ordered 03/20/23 Ordered By: Latoya Guzman Referrals: Maury Flores MD [Primary Care Provider] - 1-3 days Discharge Diet: Advance as tolerated Discharge Activity: Resume usual activity Patient Instructions: Abdominal Pain (ED) Coding Level of Care Code ED Gasoline Attendant for Nicholas Lema
[2023-03-20 15:35] LABS: INR 0.94 (0.8-1.2)
[2023-03-20 15:41] LABS: Alanine Aminotransferase 32 U/L (0-41); Albumin Level 4.2 g/dL (3.5-5.2); Alkaline Phosphatase 120 U/L (40-130); Anion Gap 13.3 (5-19); Aspartate Amino Transferase 21 U/L (0-40); Blood Urea Nitrogen 14 mg/dL (6-20); Calcium 8.8 mg/dL (8.5-10.5); Carbon Dioxide 28 mmol/L (22-29); Chloride 102 mmol/L (98-107); Creatinine Clr Calc Pharmacy 82.6188; Globulin 2.9 g/dL (1.3-4.6); Glomerular Filtration Rate 62.1 mL/min (90-130); Glucose 92 mg/dL (65-115); Osmolality Calculated 288 mOsm/kg (285-295); Potassium 4.3 mmol/L (3.5-5.1); Sodium 139 mmol/L (136-145); Total Bilirubin 0.7 mg/dL (0.15-1.2); Total Protein 7.1 g/dL (6.6-8.7)
[2023-03-20 16:39] VITALS: PULSE 74; O2SAT 95
== END 2023-03-20 16:41 | disposition home or self-care (01) ==
PROVIDERS: Emergency Provider Emergency Medicine; PCP Family Medicine
DX: R10.13 Epigastric pain (principal); J44.9 Chronic obstructive pulmonary disease, unspecified; F17.210 Nicotine dependence, cigarettes, uncomplicated
CPT/HCPCS: 36415; 80053; 85025; 85610; 99283

== ENCOUNTER 2023-04-30 04:58 | Emergency (ER) | payer SELFPAY ==
[2023-04-30 05:13] VITALS: BP 138/88; PULSE 94; RESP 16; TEMP 36.7; O2SAT 94; BMI 28.0
--- NOTE | 2023-04-30 05:18 | XRR_ITS ---
PROCEDURE INFORMATION: Exam: XR Chest Exam date and time: 04/30/2023 6:55 AM Age: 37 years old Clinical indication: Sternal or substernal pain; Additional info: Cxp. No history of recent trauma or surgery is provided. TECHNIQUE: Imaging protocol: Radiologic exam of the chest. 1image(s) are provided. Views: 1 view. COMPARISON: 1. CR XR chest 1V portable [id number] 02/19/2023 8:48 PM 2. CR XR chest 1V portable [id number] 08/09/2022 6:35 PM 3. CR XR chest 1V portable [id number] 12/27/2021 9:14 PM FINDINGS: Lungs: There is some developmental azygous fissure averaging superiorly on the right. There appears to be some minimal linear subsegmental atelectasis of the lung bases.No lobar consolidation is appreciated. Pleural spaces: No pneumothorax is appreciated. No significant interval pleural effusion is appreciated. Heart/Mediastinum: The cardiomediastinal silhouette is upper normal in size.No cardiac decompensation is appreciated. Diaphragm: The hemidiaphragms are symmetric. Bones/joints: Osseous alignment is maintained. No interval displaced fracture or dislocation is appreciated. Soft tissues: No radiopaque foreign body or subcutaneous emphysema is appreciated. Other findings: No other significant interval changes are appreciated. XR/XR chest 1V portable [id number] IMPRESSION: No lobar consolidation is appreciated.No interval acute cardiopulmonary changes are appreciated.
--- NOTE | 2023-04-30 05:18 | ECG_ITS ---
[facility] Test Date: 2023-04-30 Pat Name: Radhames Baker Department: Room: Gender: Male Back Wedger: : 1985 Requested By: Malcolm Sanabria Order Number: [id number] MD: Casey Magana M.D. Measurements Intervals [place] Rate: 98 P: 46 [place]: 100 QRS: 67 QRSD: 90 T: 1 QT: 326 QTc: 417 Interpretive Statements SINUS RHYTHM WITH SHORT KS INTERVAL MINIMAL VOLTAGE CRITERIA FOR LVH, CONSIDER NORMAL VARIANT [MEETS CRITERIA IN ONE OF: R(aVL), S(V1), R(V5), R(V5/V6)+S(V1)] Compared to ECG 08/12/2022 06:07:14 Short [place] interval now present Myocardial infarct finding no longer present Electronically Signed On 04-30-2023 21:34:52 CDT by Casey Magana M.D. [email or web address]
[2023-04-30 05:35] LABS: Basophils # 0.1 10^3/uL (0.0-0.1); Basophils % 0.6 %; Eosinophils # 0.1 10^3/uL (0.0-0.8); Eosinophils % 0.7 %; Hematocrit 49.2 % (37-53); Lymphocytes # 4.1 10^3/uL (0.8-4.8); Lymphocytes % 28.7 %; Mean Corpuscular HGB Conc 32.5 g/dL (30-55); Mean Corpuscular Hemoglobin 28.5 pg (27-33); Mean Corpuscular Volume 87.7 fl (82-101); Mean Platelet Volume 9.5 fL (7.4-10.4); Monocytes # 0.9 10^3/uL (0.2-0.9); Neutrophils % 63.4 %; Nucleated Red Blood Cells % 0 %; Platelet Count 273 10^3/cmm (157-399); Red Blood Count 5.61 10^6/uL (3.85-5.65); Red Cell Distribution Width 13.2 % (12.1-15.1); White Blood Count 14.23 10^3/uL (3.29-11.43)
--- NOTE | 2023-04-30 05:53 | W.ED.CHESTPA ---
HPI - Chest Pain General: Chief Complaint: Chest Pain Stated Complaint: Chest pain, Ear pain Time Seen by Provider: 04/30/23 05:18 Source: patient Mode of arrival: ambulatory History of Present Illness: 37-year-old male presents emergency room complaining of organ pain. His initial complaint was chest pain and ear pain and triage note states he has a bite on his back that seem to precipitate all of his pain when I went to see him he did not see anything about the bite on his back. He complained of more initially of abdominal pain when I queried him on his earlier complaint to the nursing staff of chest pain he said he has chest and abdominal pain that began yesterday around 7 or 8 AM. MD complaint: chest pain Onset (ago): day(s) (1) Pain location: left chest and other (Lower abdomen) Pain radiation: none Relieving factors: nothing Exacerbating factors: nothing Associated symptoms: Reports abdominal pain; Deny diaphoresis, dyspnea, fever(s), leg edema, nausea, palpitations, sense of impending doom, syncope or vomiting Review of Systems Const: Denies: fever(s), chills or diaphoresis Card: Reports: chest pain; Denies: palpitations or syncope Resp: Denies: dyspnea GI: Reports: abdominal pain; Denies: nausea or vomiting : Denies: dysuria, urinary frequency or urinary urgency Musc: Denies: neck pain or back pain Skin/Breast: Denies: rash PFSH ED PFSH: Medical History GERD (gastroesophageal reflux disease) Insomnia Psychiatric care Parasitosis Suicidal ideation Depression Methamphetamine use disorder, severe COPD (chronic obstructive pulmonary disease) Family History Family/Other Cancer Maternal aunt-unknown Family/Other Cancer Maternal aunt-brain Other CAD (coronary artery disease) Stroke Denies family history of Diabetes Clotting disorder Dementia Hyperlipidemia Psychiatric illness Chronic kidney disease (CKD) Anesthesia complication Bleeding disorder Lung disease Hypertension Social History Smoking and tobacco/nicotine status: current every day tobacco/nicotine user cigarettes Packs smoked per day: 0.25 Years cigarettes smoked: 10 Alcohol intake: former Substance/Drug Use: former Date of last use: 08/2022 Lives independently: Yes Marital status: Single Number of children: 0 Current occupational status: unemployed and other Details: rehab facility resident Special beny needs: No Agree to transfusion: Yes Physical Exam Const: COMMON NORMALS: no acute distress GENERAL APPEARANCE: cooperative and comfortable ORIENTATION/CONSCIOUSNESS: Yes awake, Yes oriented to person, Yes oriented to place and Yes oriented to time HENMT: COMMON NORMALS: normocephalic, atraumatic and hearing grossly normal bilaterally HEAD & SCALP: normocephalic and atraumatic Resp: COMMON NORMALS: normal respiratory effort, No retractions, No use of accessory muscles and clear to auscultation bilaterally AUSCULTATION: clear to auscultation bilaterally Cardio: COMMON NORMALS: regular rate, regular rhythm and No murmurs present (Cardio) RATE: regular rate RHYTHM: regular rhythm GI: COMMON NORMALS: Soft to palpation and No hepatosplenomegaly present AUSCULTATION: Yes normoactive bowel sounds PALPATION: Yes Soft to palpation, No Tenderness to palpation present (GI), No Guarding due to palpation present (GI) and Yes No hepatosplenomegaly present Extremity: COMMON NORMALS: normal to inspection, capillary refill normal, no clubbing, cyanosis or edema, no calf tenderness and no pedal edema Neuro: SENSORIUM/ORIENTATION: Yes oriented to person, Yes oriented to place and Yes oriented to time Skin: COMMON NORMALS: no rashes or lesions noted GENERAL SKIN EXAM: no rashes or lesions noted Course Vital Signs: Vital signs: Vital Signs Temperature 98.0 F 04/30/23 05:13 Pulse Rate 74 04/30/23 10:00 Respiratory Rate 15 04/30/23 10:00 Blood Pressure 114/82 04/30/23 10:00 Pulse Oximetry 96 04/30/23 10:00 Oxygen Delivery Me thod Room Air 04/30/23 06:37 MDM - Chest Pain Medical Decision Making No right upper quadrant pain examination of his back the bite appears to be more of a fleshy mole no redness no erythema no rash. He is not having abdominal pain at this time we repeat exam after workup was complete completely. ALT and alk phos are slightly elevated T. bili is normal no biliary colic. Reviewed all the labs and EKGs with the patient we will discharge him home if he has any recurrence of symptoms return. On repeat exam he has no right lower quadrant or right upper quadrant abdominal pain. If symptoms change Medical Records I reviewed the patient's medical records. Lab Data I reviewed the patient's lab results. 04/30/23 05:32 04/30/23 05:32 Radiology Impressions Chest X-Ray 04/30/23 05:18 IMPRESSION: No lobar consolidation is appreciated.No interval acute cardiopulmonary changes are appreciated. Laboratory Results WBC 14.23 10^3/uL (3.29-11.43) H 04/30/23 05:32 RBC 5.61 10^6/uL (3.85-5.65) 04/30/23 05:32 Hgb 16.00 g/dL (11.27-16.99) 04/30/23 05:32 Hct 49.2 % (37-53) 04/30/23 05:32 MCV 87.7 fl (82-101) 04/30/23 05:32 MCH 28.5 pg (27-33) 04/30/23 05:32 MCHC 32.5 g/dL (30-55) 04/30/23 05:32 RDW 13.2 % (12.1-15.1) 04/30/23 05:32 Plt Count 273 10^3/cmm (157-399) 04/30/23 05:32 MPV 9.5 fL (7.4-10.4) 04/30/23 05:32 Neut % (Auto) 63.4 % 04/30/23 05:32 Lymph % (Auto) 28.7 % 04/30/23 05:32 [place] % (Auto) 6.0 % 04/30/23 05:32 Eos % (Auto) 0.7 % 04/30/23 05:32 Baso % (Auto) 0.6 % 04/30/23 05:32 Neut # (Auto) 9.00 10^3/uL (1.8-7.7) H 04/30/23 05:32 Lymph # (Auto) 4.1 10^3/uL (0.8-4.8) 04/30/23 05:32 [place] # (Auto) 0.9 10^3/uL (0.2-0.9) 04/30/23 05:32 Eos # (Auto) 0.1 10^3/uL (0.0-0.8) 04/30/23 05:32 Baso # (Auto) 0.1 10^3/uL (0.0-0.1) 04/30/23 05:32 Nucleated RBC % (auto) 0 % 04/30/23 05:32 Nucleated RBCs # 0.0 /100WBC 04/30/23 05:32 Sodium 138 mmol/L (136-145) 04/30/23 05:32 Potassium 4.1 mmol/L (3.5-5.1) 04/30/23 05:32 Chloride 100 mmol/L (98-107) 04/30/23 05:32 Carbon Dioxide 26 mmol/L (22-29) 04/30/23 05:32 Anion Gap 16.1 (5-19) 04/30/23 05:32 BUN 14 mg/dL (6-20) 04/30/23 05:32 Creatinine 1.1 mg/dL (0.7-1.2) 04/30/23 05:32 GFR Calculation 75.3 mL/min (90-130) L 04/30/23 05:32 Glucose 91 mg/dL (65-115) 04/30/23 05:32 Calculated Osmolality 286 mOsm/kg (285-295) 04/30/23 05:32 Calcium 9.7 mg/dL (8.5-10.5) 04/30/23 05:32 Total Bilirubin 0.6 mg/dL (0.15-1.2) 04/30/23 05:32 AST 28 U/L (0-40) 04/30/23 05:32 ALT 66 U/L (0-41) H 04/30/23 05:32 Alkaline Phosphatase 134 U/L (40-130) H 04/30/23 05:32 Troponin T Baseline 11 ng/L (0-15) 04/30/23 05:32 Troponin T 120 Minute 10.63 ng/L (0-15) 04/30/23 07:44 Delta Troponin T -0.37 ABS# (0-10) L 04/30/23 07:44 Total Protein 7.7 g/dL (6.6-8.7) 04/30/23 05:32 Albumin 4.9 g/dL (3.5-5.2) 04/30/23 05:32 Globulin 2.8 g/dL (1.3-4.6) 04/30/23 05:32 Lipase 47 U/L (13-60) 04/30/23 05:32 Urine Color Yellow (Yellow) 04/30/23 10:00 Urine Appearance Clear (CLEAR) 04/30/23 10:00 Urine pH 6 (5-7) 04/30/23 10:00 Ur Specific [place] 1.020 (1.005-1.030) 04/30/23 10:00 Urine Protein Neg (Negative) 04/30/23 10:00 Urine Glucose (UA) Norm (Normal) 04/30/23 10:00 Urine Ketones 1+ (Negative) H 04/30/23 10:00 Urine Blood Neg (Negative) 04/30/23 10:00 Urine Nitrate Negative (Negative) 04/30/23 10:00 Urine Bilirubin Neg (Negative) 04/30/23 10:00 Urine Urobilinogen Norm mg/dL (Negative) 04/30/23 10:00 Ur Leukocyte Esterase Negative (Negative) 04/30/23 10:00 Urine Opiates Screen Negative ng/mL (Negative) 04/30/23 10:00 Ur Barbiturates Screen Negative ng/mL (Negative) 04/30/23 10:00 Ur Phencyclidine Scrn Negative ng/mL (Negative) 04/30/23 10:00 Ur Amphetamines Screen Negative ng/mL (Negative) 04/30/23 10:00 U Benzodiazepines Scrn Negative ng/mL (Negative) 04/30/23 10:00 Urine Cocaine Screen Negative ng/mL (Negative) 04/30/23 10:00 U Marijuana (THC) Screen Negative ng/mL (Negative) 04/30/23 10:00 Ethyl Alcohol < 10 mg/dL (0-10) 04/30/23 05:32 All radiology interpretation(s) finalized by discharge Discharge Plan Discharge Patient Disposition: Home Clinical Impression: Atypical chest pain, Abdominal pain, Elevated LFTs Condition: Stable Prescriptions: No Action budesonide-formoterol [Symbicort] 80-4.5 mcg/actuation HFA aerosol inhaler 2 puff inhalation BID Qty: 10.2 2RF omeprazole 20 mg capsule,delayed release(DR/EC) 20 mg PO DAILY Qty: 30 0RF ibuprofen 400 mg tablet 400 mg PO TID PRN (Reason: pain) Qty: 60 0RF clobetasol [Temovate] 0.05 % ointment 1 applic topical BID 14 Days Qty: 60 0RF Aquaphor Original 41 % ointment 1 applic topical BID PRN (Reason: dry skin) 14 Days Qty: 396 0RF Abilify Maintena 300 mg suspension,extended rel syring 300 mg IM Q28D Qty: 1 5RF Rx Instructions: Inject one dose of 300 mg IM monthly escitalopram oxalate 10 mg tablet 10 mg PO DAILY Qty: 30 1RF trazodone 100 mg tablet 100 mg PO BEDTIME Discharge Orders: Discharge ED (Routine); Ordered 04/30/23 Ordered By: Natanael Boothe Referrals: Maury Flores MD [Primary Care Provider] - Discharge Diet: Usual diet Patient Instructions: Abdominal Pain (ED), Opioid Safety, Pain Management Activity Restrictions/Additional Instructions: Thank you for choosing [facility] for your healthcare needs today. Please realize this is an emergency room and that we are providing you with a medical screening exam and this may not be complete and all inclusive of all the testing and or work up that you may need to determine your ailment or severity of your illness. It is very important that you follow up as instructed or that you return to the Emergency Department should you have concerns or if your condition changes or worsens in any way. Return to the emergency room if you have any further chest or abdominal pain. Coding Level of Care Code ED Mis Manager for Nicholas Lema
[2023-04-30 06:00] LABS: Troponin(5th) Baseline 11 ng/L (0-15)
[2023-04-30 06:08] LABS: Albumin Level 4.9 g/dL (3.5-5.2); Anion Gap 16.1 (5-19); Aspartate Amino Transferase 28 U/L (0-40); Blood Urea Nitrogen 14 mg/dL (6-20); Calcium 9.7 mg/dL (8.5-10.5); Carbon Dioxide 26 mmol/L (22-29); Chloride 100 mmol/L (98-107); Globulin 2.8 g/dL (1.3-4.6); Glomerular Filtration Rate 75.3 mL/min (90-130); Glucose 91 mg/dL (65-115); Osmolality Calculated 286 mOsm/kg (285-295); Potassium 4.1 mmol/L (3.5-5.1); Sodium 138 mmol/L (136-145); Total Bilirubin 0.6 mg/dL (0.15-1.2); Total Protein 7.7 g/dL (6.6-8.7)
[2023-04-30 06:10] LABS: Alkaline Phosphatase 134 U/L (40-130)
[2023-04-30 06:11] LABS: Alanine Aminotransferase 66 U/L (0-41)
[2023-04-30 06:37] VITALS: BP 123/74; PULSE 85; RESP 16; O2SAT 91
[2023-04-30 07:06] LABS: Alcohol Level < 10 mg/dL (0-10); Lipase 47 U/L (13-60)
[2023-04-30] MEDS: aspirin 81 mg Chew Tablet 324 MG PO (07:15)
--- NOTE | 2023-04-30 07:18 | ECG_ITS ---
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 Measurements Intervals [place] Rate: 80 P: 49 VT: 135 QRS: 49 QRSD: 102 T: 7 QT: 362 QTc: 418 Interpretive Statements SINUS RHYTHM POSSIBLE LEFT VENTRICULAR HYPERTROPHY [VOLTAGE CRITERIA PLUS LAE OR QRS WIDENING] Compared to ECG 04/30/2023 05:07:26 Short VT interval no longer present Electronically Signed On 04-30-2023 21:42:33 CDT by Casey Magana M.D. [id number]
--- NOTE | 2023-04-30 08:02 | US_ITS ---
WS: [id number] RIGHT UPPER QUADRANT ULTRASOUND HISTORY: elevated LFTs, abd pain COMPARISON: None available. Liver: 13.7 cm in length. Normal size liver and echogenicity. No bile duct dilatation or mass. Portal Vein: Normal hepatopetal flow with monophasic waveform. Gallbladder: Normally distended gallbladder with no stones or wall thickening. CBD: 0.3 cm Pancreas: Normal size and echogenicity. Right kidney: 9.1 cm in length. Normal size and echogenicity. No hydronephrosis or mass. Aorta and IVC: Unremarkable abdominal aorta and IVC. No ascites. IMPRESSION: Normal right upper quadrant ultrasound.
[2023-04-30 08:18] LABS: Troponin 5 2HR 10.63 ng/L (0-15); Troponin 5 2HR Delta -0.37 ABS# (0-10)
[2023-04-30 10:00] VITALS: BP 114/82; PULSE 74; RESP 15; O2SAT 96
[2023-04-30 10:24] LABS: Add Urine Microscopic? NO; Charge for UA Resulting for Rev
[2023-04-30 10:37] LABS: Bilirubin Urine Neg (Negative); Blood Urine Neg (Negative); Glucose Urine UA Norm (Normal); Ketones Urine 1+ (Negative); Leukocyte Esterase Urine Negative (Negative); Nitrate Urine Negative (Negative); Protein Urine Neg (Negative); Urine Appearance Clear (CLEAR); Urine Color Yellow (Yellow); Urobilinogen Urine Norm (Negative); pH Urine 6 (5-7)
[2023-04-30 10:54] LABS: Amphetamines Screen Urine Negative (Negative); Barbiturates Screen Urine Negative (Negative); Benzodiazepines Screen Urine Negative (Negative); Cocaine Screen Urine Negative (Negative); Opiate Screen Urine Negative (Negative); PCP Screen Urine Negative (Negative); THC Screen Urine Negative (Negative)
== END 2023-04-30 11:07 | disposition home or self-care (01) ==
PROVIDERS: Internal Medicine; Emergency Provider Family Medicine; PCP Family Medicine
DX: R07.89 Other chest pain (principal); R79.89 Other specified abnormal findings of blood chemistry; R10.9 Unspecified abdominal pain; F17.210 Nicotine dependence, cigarettes, uncomplicated; J44.9 Chronic obstructive pulmonary disease, unspecified
CPT/HCPCS: 36415; 71045; 76705; 80053; 80306; 80307; 81003; 83690; 84484; 85025; 93005; 99285

== ENCOUNTER → 2023-07-09 11:11 | Outpatient (BNVA) | payer SELFPAY | PROVIDERS: PCP Family Medicine; Visit Provider Nurse Practitioner Psychiatric/Mental Health | DX: F32.A Depression, unspecified (principal); F19.951 Other psychoactive substance use, unspecified with psychoactive substance-induced psychotic disorder with hallucinations | CPT/HCPCS: 80061; 83036 ==

== ENCOUNTER 2023-08-08 08:08 | Emergency (ER) | payer MEDICAID, SELFPAY ==
[2023-07-22 15:13] VITALS: BP 118/53; BMI 28.8
--- NOTE | 2023-08-08 08:10 | XR_ITS ---
WS: [id number] Exam: XR chest 1V portable [id number] Date/Time of Exam: 08/08/2023 8:55 AM Reason For Exam: dyspnea/cough Comparison 04/30/2023. Lungs are fully inflated and clear. Normal cardiomediastinal silhouette and regional bony elements. M onitoring leads superimpose the chest. XR/XR chest 1V portable [id number] IMPRESSION: 1. Negative chest.
[2023-08-08 08:12] VITALS: BP 140/82; PULSE 85; RESP 20; TEMP 36.8; O2SAT 95; BMI 25.1
--- NOTE | 2023-08-08 08:16 | ECG_ITS ---
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 Measurements Intervals [place] Rate: 95 P: 46 MD: 128 QRS: 62 QRSD: 97 T: 27 QT: 349 QTc: 440 Interpretive Statements SINUS RHYTHM Compared to ECG 04/30/2023 07:11:14 No significant changes Electronically Signed On 08-08-2023 9:38:10 CDT by Anatoly Hirsch M.D. [id number]
--- NOTE | 2023-08-08 08:19 | ED_ITS ---
HPI - Chest Pain 2 General: Chief Complaint: Chest Pain Stated Complaint: chest pain/ bloody stool Time Seen by Provider: 08/08/23 08:09 Source: patient Mode of arrival: ambulatory History of Present Illness: 38-year-old male presents emergency room complaining of chest pain for the last 3 days starts on his left side radiates into his left shoulder he is been a little short of breath at times also slightly diaphoretic when he arrives here. He states he is also began having bloody stools this morning he has some generalized abdominal discomfort nothing specific. He is not on any anticoagulants. He has not noticed anything that exacerbates or relieves his the chest pain or the shortness of breath. States he has had bloody stools in the past he tells me it was associated with elevated liver enzymes but never had a colonoscopy or any further evaluation. He said to bloody diarrhea stools this morning. No recent antibiotics. Additionally patient does smoke but he has no history of coronary artery disease no previous cardiac evaluations MD complaint: chest pain Onset (ago): day(s) (Chest pain started 3 days ago) Timing of current episode: episodic Onset: during rest Pain location: left chest Pain radiation: left shoulder Quality: aching and heaviness Relieving factors: nothing Exacerbating factors: nothing Associated symptoms: Deny abdominal pain, diaphoresis, dyspnea, fever(s), leg edema, nausea, palpitations, sense of impending doom, syncope or vomiting Treatment prior to arrival: none Review of Systems 2 Const: Denies: fever(s), chills or diaphoresis Card: Denies: chest pain, palpitations or syncope Resp: Denies: dyspnea GI: Denies: abdominal pain, nausea or vomiting : Denies: dysuria, urinary frequency or urinary urgency Musc: Denies: neck pain or back pain Skin/Breast: Denies: rash PFSH ED 2 PFSH: Medical History GERD (gastroesophageal reflux disease) Insomnia Psychiatric care Parasitosis Suicidal ideation Depression Methamphetamine use disorder, severe COPD (chronic obstructive pulmonary disease) Family History Family/Other Cancer Maternal aunt-unknown Family/Other Cancer Maternal aunt-brain Other CAD (coronary artery disease) Stroke Denies family history of Diabetes Clotting disorder Dementia Hyperlipidemia Psychiatric illness Chronic kidney disease (CKD) Anesthesia complication Bleeding disorder Lung disease Hypertension Social History Smoking and tobacco/nicotine status: current every day tobacco/nicotine user cigarettes Packs smoked per day: 0.25 Years cigarettes smoked: 10 Alcohol intake: former Substance/Drug Use: former Date of last use: 08/2022 Adopted: Yes (Grandparents) Caregiver/support person: No Lives independently: Yes Household members: friend(s) Housing: Apartment Marital status: Single Number of children: 0 Highest education level completed: High School Graduate Current occupational status: unemployed and other Details: rehab facility resident Pets and animals: No Leisure activites: exercise and other Leisure activities details: Goes to [employer] during the day and meetings in the evening Sexually active: Yes Do you think of yourself as: Straight/Heterosexual Current gender identity: Male Raysa/Anglican: Latter-Day Special raysa needs: No Agree to transfusion: Yes Physical Exam 2 Const: GENERAL APPEARANCE: cooperative and comfortable O RIENTATION/CONSCIOUSNESS: Yes awake, Yes oriented to person, Yes oriented to place and Yes oriented to time HENMT: COMMON NORMALS: normocephalic, atraumatic and hearing grossly normal bilaterally HEAD & SCALP: normocephalic and atraumatic Resp: COMMON NORMALS: normal respiratory effort, No retractions, No use of accessory muscles and clear to auscultation bilaterally AUSCULTATION: clear to auscultation bilaterally Cardio: COMMON NORMALS: regular rate, regular rhythm and No murmurs present (Cardio) RATE: regular rate RHYTHM: regular rhythm GI: COMMON NORMALS: No hepatosplenomegaly present AUSCULTATION: Yes normoactive bowel sounds PALPATION: Yes Tenderness to palpation present (GI) (generalized), No Guarding due to palpation present (GI) and Yes No hepatosplenomegaly present Extremity: COMMON NORMALS: normal to inspection, capillary refill normal, no clubbing, cyanosis or edema, no calf tenderness and no pedal edema Neuro: SENSORIUM/ORIENTATION: Yes oriented to person, Yes oriented to place and Yes oriented to time Skin: COMMON NORMALS: no rashes or lesions noted GENERAL SKIN EXAM: no rashes or lesions noted Course 2 Vital Signs: Vital signs: Vital Signs Temperature 98.2 F 08/08/23 08:22 Pulse Rate 95 08/08/23 10:10 Respiratory Rate 20 H 08/08/23 08:22 Blood Pressure 106/53 08/08/23 10:10 Pulse Oximetry 96 08/08/23 11:22 Oxygen Delivery Me thod Room Air 08/08/23 11:22 MDM - Chest Pain Medical Decision Making Rectal exam did not show any obvious blood occult for blood of the stool was also negative. He does have some diverticulosis but no clear diverticulitis. Suspect he may be bleeding from diverticulosis we did give him Cipro and Flagyl to cover case he has an early case of diverticulitis. Will discharge him home his hemoglobin is stable CT did not show any acute masses or abnormality he will require colonoscopy at a later date encouraged him to follow-up with primary care doctor. Clear liquid diet for 24 to 48 hours and advance as tolerated. Also complained of some chest discomfort is cardiac enzymes and EKG did not show any acute changes remainder of his labs are otherwise unremarkable. His chest x-ray was normal as well. Will discharge patient home and have him follow-up with his primary care will set him up for an outpatient graded exercise stress test. Medical Records I reviewed the patient's medical records. Lab Data I reviewed the patient's lab results. 08/08/23 08:21 08/08/23 08:21 Radiology Impressions Chest X-Ray 08/08/23 08:10 IMPRESSION: 1. Negative chest. Abdomen/Pelvis CT 08/08/23 08:20 IMPRESSION: 1. No acute findings in the abdomen/pelvis to suggest a specific cause of abdominal pain. 2. Mild scattered colonic diverticulosis. No CT evidence of acute diverticulitis. 3. Hepatic steatosis. Laboratory Results WBC 11.39 10^3/uL (3.29-11.43) 08/08/23 08:21 RBC 5.34 10^6/uL (3.85-5.65) 08/08/23 08:21 Hgb 15.10 g/dL (11.27-16.99) 08/08/23 08:21 Hct 46.1 % (37-53) 08/08/23 08:21 MCV 86.3 fl (82-101) 08/08/23 08:21 MCH 28.3 pg (27-33) 08/08/23 08:21 MCHC 32.8 g/dL (30-55) 08/08/23 08:21 RDW 13.1 % (12.1-15.1) 08/08/23 08:21 Plt Count 269 10^3/cmm (157-399) 08/08/23 08:21 MPV 10.2 fL (7.4-10.4) 08/08/23 08:21 Neut % (Auto) 60.7 % 08/08/23 08:21 Lymph % (Auto) 30.9 % 08/08/23 08:21 [place] % (Auto) 4.8 % 08/08/23 08:21 Eos % (Auto) 1.9 % 08/08/23 08:21 Baso % (Auto) 0.6 % 08/08/23 08:21 Neut # (Auto) 6.91 10^3/uL (1.8-7.7) 08/08/23 08:21 Lymph # (Auto) 3.5 10^3/uL (0.8-4.8) 08/08/23 08:21 [place] # (Auto) 0.6 10^3/uL (0.2-0.9) 08/08/23 08:21 Eos # (Auto) 0.2 10^3/uL (0.0-0.8) 08/08/23 08:21 Baso # (Auto) 0.1 10^3/uL (0.0-0.1) 08/08/23 08:21 Nucleated RBC % (auto) 0 % 08/08/23 08:21 Nucleated RBCs # 0.0 /100WBC 08/08/23 08:21 PT 12.80 SECONDS (12.1-14.9) 08/08/23 08:21 INR 0.94 (0.8-1.2) 08/08/23 08:21 APTT 26.1 SECONDS (23.9-36.7) 08/08/23 08:21 Sodium 136 mmol/L (136-145) 08/08/23 08:21 Potassium 3.8 mmol/L (3.5-5.1) 08/08/23 08:21 Chloride 101 mmol/L (98-107) 08/08/23 08:21 Carbon Dioxide 22 mmol/L (22-29) 08/08/23 08:21 Anion Gap 16.8 (5-19) 08/08/23 08:21 BUN 10 mg/dL (6-20) 08/08/23 08:21 Creatinine 1.0 mg/dL (0.7-1.2) 08/08/23 08:21 GFR Calculation 83.6 mL/min (90-130) L 08/08/23 08:21 Glucose 148 mg/dL (65-115) H 08/08/23 08:21 Calculated Osmolality 284 mOsm/kg (285-295) L 08/08/23 08:21 Calcium 8.8 mg/dL (8.5-10.5) 08/08/23 08:21 Total Bilirubin 0.6 mg/dL (0.15-1.2) 08/08/23 08:21 AST 77 U/L (0-40) H 08/08/23 08:21 ALT 93 U/L (0-41) H 08/08/23 08:21 Alkaline Phosphatase 107 U/L (40-130) 08/08/23 08:21 Troponin T Baseline 7 ng/L (0-15) 08/08/23 08:21 Troponin T 120 Minute 6.14 ng/L (0-15) 08/08/23 10:29 Delta Troponin T -0.86 ABS# (0-10) L 08/08/23 10:29 Total Protein 7.1 g/dL (6.6-8.7) 08/08/23 08:21 Albumin 4.3 g/dL (3.5-5.2) 08/08/23 08:21 Globulin 2.8 g/dL (1.3-4.6) 08/08/23 08:21 Urine Color Yellow (Yellow) 08/08/23 09:03 Urine Appearance Clear (CLEAR) 08/08/23 09:03 Urine pH 5 (5-7) 08/08/23 09:03 Ur Specific [place] 1.005 (1.005-1.030) 08/08/23 09:03 Urine Protein Neg (Negative) 08/08/23 09:03 Urine Glucose (UA) Norm (Normal) 08/08/23 09:03 Urine Ketones Negative (Negative) 08/08/23 09:03 Urine Blood Neg (Negative) 08/08/23 09:03 Urine Nitrate Negative (Negative) 08/08/23 09:03 Urine Bilirubin Neg (Negative) 08/08/23 09:03 Urine Urobilinogen Norm mg/dL (Negative) 08/08/23 09:03 Ur Leukocyte Esterase Negative (Negative) 08/08/23 09:03 All radiology interpretation(s) finalized by discharge Discharge Plan Discharge Patient Disposition: Home Clinical Impression: Atypical chest pain, Diverticulosis, Bright red rectal bleeding Condition: Stable Prescriptions: New Cipro 500 mg tablet 500 mg PO BID Qty: 14 0RF metronidazole 500 mg tablet 500 mg PO BID 7 Days Qty: 14 0RF No Action budesonide-formoterol [Symbicort] 80-4.5 mcg/actuation HFA aerosol inhaler 2 puff inhalation BID Qty: 10.2 2RF escitalopram oxalate 10 mg tablet 10 mg PO DAILY Qty: 30 2RF Aquaphor Original 41 % ointment 1 applic topical BID PRN (Reason: dry skin) 14 Days Qty: 396 0RF polyethylene glycol 3350 [Miralax] 17 gram/dose powder 17 g PO DAILY PRN (Reason: constipation) Qty: 238 0RF hydroxyzine pamoate 25 mg capsule 25 mg PO TID PRN (Reason: anxiety) Qty: 90 1RF Abilify Maintena 300 mg suspension,extended rel syring 300 mg IM Q28D Qty: 1 5RF Rx Instructions: Inject one dose of 300 mg IM monthly omeprazole 40 mg capsule,delayed release(DR/EC) 40 mg PO BID 30 Days Qty: 60 0RF sucralfate [Carafate] 1 gram tablet 1 g PO BID 30 Days Qty: 60 0RF clobetasol 0.05 % ointment 1 applic TOPICAL BID PRN (Reason: Skin Irritation) trazodone 100 mg tablet 100 mg PO BEDTIME PRN (Reason: insomnia) Discharge Orders: Discharge ED (Routine); Ordered 08/08/23 Ordered By: Natanael Boothe Referrals: Maury Flores MD [Primary Care Provider] - Discharge Diet: Clear Liquid Discharge Activity: Increase activity as tolerated Patient Instructions: Opioid Safety, Pain Management Activity Restrictions/Additional Instructions: Thank you for choosing [facility] for your healthcare needs today. It is very important that you follow up as instructed or that you return to the Emergency Department should you have concerns or if your condition changes or worsens in any way. You were seen today with complaints of chest discomfort and rectal bleeding. Your cardiac enzymes and EKG did not show any acute abnormalities. CT of your abdomen did NOT show any acute pathologic abnormalities but did show diverticulosis WITHOUT sign of diverticulitis. There was no blood noted on rectal exam or on the occult blood testing. We recommend that you start on oral antibiotics for your colon suspect that the bleeding may be coming from the diverticuli. Sometimes antibiotics can be helpful with this. You should follow-up with your primary care doctor and have a colonoscopy done at sometime in the near future. If your symptoms worsen or change or worsening rectal bleeding return to the emergency room Coding Level of Care Code ED Manager Philosophy for Nicholas Lema
--- NOTE | 2023-08-08 08:20 | CTR_ITS ---
PROCEDURE INFORMATION: Exam: CT Abdomen And Pelvis With Contrast Exam date and time: 08/08/2023 8:40 AM Age: 38 years old Clinical indication: Abdominal pain; Localized; Lower; Additional info: Abd pain TECHNIQUE: Imaging protocol: Computed tomography of the abdomen and pelvis with contrast. Radiation optimization: All CT scans at this facility use at least one of these dose optimization techniques: automated exposure control; mA and/or kV adjustment per patient size (includes targeted exams where dose is matched to clinical indication); or iterative reconstruction. Contrast material: OMNI 350; Contrast volume: 100 ml; Contrast route: INTRAVENOUS (IV); COMPARISON: US gall bladder [id number] 04/30/2023 8:22 AM RADIATION DOSE METRICS: Total DLP (mGy-cm): 891.03 FINDINGS: Lungs: Visualized lung bases are clear. Liver: Hepatic steatosis. Gallbladder and biliary ducts: The gallbladder is unremarkable. No biliary ductal dilatation. Pancreas: The pancreas is unremarkable. Spleen: The spleen is unremarkable. Adrenal glands: The adrenal glands are unremarkable. Kidneys and ureters: Kidneys are normal. No hydronephrosis or nephrolithiasis. Stomach and bowel: Nonobstructive bowel-gas pattern. Mild scattered colonic diverticulosis. No CT evidence of acute diverticulitis. Appendix: The appendix is normal. Intraperitoneal space: No significant free fluid in the abdomen or pelvis. Vasculature: Abdominal aorta and its major branches are within normal limits. Lymph nodes: No pathologically enlarged lymphadenopathy. Urinary bladder: Urinary bladder is within normal limits. Reproductive: Visualized reproductive structures are within normal limits. Bones/joints: No acute osseous findings. Soft tissues: Visualized superficial soft tissues are within normal limits. CT/CT abdomen pelvis w con* [id number] IMPRESSION: 1. No acute findings in the abdomen/pelvis to suggest a specific cause of abdominal pain. 2. Mild scattered colonic diverticulosis. No CT evidence of acute diverticulitis. 3. Hepatic steatosis.
[2023-08-08 08:22] VITALS: BP 140/82; PULSE 85; RESP 20; TEMP 36.8; O2SAT 95
[2023-08-08] MEDS: ondansetron 2 mg/ML SDV 2 mL 4 MG IVP (08:29)
[2023-08-08 08:41] LABS: Basophils # 0.1 10^3/uL (0.0-0.1); Basophils % 0.6 %; Eosinophils # 0.2 10^3/uL (0.0-0.8); Eosinophils % 1.9 %; Hematocrit 46.1 % (37-53); Lymphocytes # 3.5 10^3/uL (0.8-4.8); Lymphocytes % 30.9 %; Mean Corpuscular HGB Conc 32.8 g/dL (30-55); Mean Corpuscular Hemoglobin 28.3 pg (27-33); Mean Corpuscular Volume 86.3 fl (82-101); Mean Platelet Volume 10.2 fL (7.4-10.4); Monocytes # 0.6 10^3/uL (0.2-0.9); Monocytes % 4.8 %; Neutrophils # 6.91 10^3/uL (1.8-7.7); Neutrophils % 60.7 %; Nucleated Red Blood Cells % 0 %; Platelet Count 269 10^3/cmm (157-399); Red Blood Count 5.34 10^6/uL (3.85-5.65); Red Cell Distribution Width 13.1 % (12.1-15.1); White Blood Count 11.39 10^3/uL (3.29-11.43)
[2023-08-08] MEDS: iohexol 350 mg/mL 500 mL Btl (per mL) IV (08:43)
[2023-08-08 08:50] LABS: Alanine Aminotransferase 93 U/L (0-41); Albumin Level 4.3 g/dL (3.5-5.2); Alkaline Phosphatase 107 U/L (40-130); Anion Gap 16.8 (5-19); Aspartate Amino Transferase 77 U/L (0-40); Blood Urea Nitrogen 10 mg/dL (6-20); Calcium 8.8 mg/dL (8.5-10.5); Carbon Dioxide 22 mmol/L (22-29); Chloride 101 mmol/L (98-107); Creatinine Clr Calc Pharmacy 103.7912; Globulin 2.8 g/dL (1.3-4.6); Glomerular Filtration Rate 83.6 mL/min (90-130); Glucose 148 mg/dL (65-115); Osmolality Calculated 284 mOsm/kg (285-295); Potassium 3.8 mmol/L (3.5-5.1); Sodium 136 mmol/L (136-145); Total Bilirubin 0.6 mg/dL (0.15-1.2); Total Protein 7.1 g/dL (6.6-8.7)
[2023-08-08 08:51] LABS: Troponin(5th) Baseline 7 ng/L (0-15)
[2023-08-08 08:57] LABS: INR 0.94 (0.8-1.2); Partial Thromboplastin Time 26.1 SECONDS (23.9-36.7)
[2023-08-08 09:14] LABS: Add Urine Microscopic? NO; Charge for UA Resulting for Rev
[2023-08-08 09:26] LABS: Bilirubin Urine Neg (Negative); Blood Urine Neg (Negative); Glucose Urine UA Norm (Normal); Ketones Urine Negative (Negative); Leukocyte Esterase Urine Negative (Negative); Nitrate Urine Negative (Negative); Protein Urine Neg (Negative); Specific Gravity, Urine 1.005 (1.005-1.030); Urine Appearance Clear (CLEAR); Urine Color Yellow (Yellow); Urobilinogen Urine Norm (Negative); pH Urine 5 (5-7)
[2023-08-08 10:10] VITALS: BP 106/53; PULSE 95; O2SAT 95
--- NOTE | 2023-08-08 10:21 | PC.PHAR ---
PT VERIFIED MEDICATIONS BUT COULD NOT TELL ME THE LAST TIME HE TOOK ANY OF IT.
--- NOTE | 2023-08-08 10:41 | ECG_ITS ---
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 Measurements Intervals [place] Rate: 75 P: 47 WI: 138 QRS: 49 QRSD: 97 T: 32 QT: 361 QTc: 405 Interpretive Statements SINUS RHYTHM EARLY REPOLARIZATION [ST ELEVATION WITH NORMALLY INFLECTED T-WAVE] Compared to ECG 08/08/2023 08:16:32 Early repolarization now present Electronically Signed On 08-08-2023 14:11:43 CDT by Anatoly Hirsch M.D. [id number]
[2023-08-08 10:54] LABS: Troponin 5 2HR 6.14 ng/L (0-15)
[2023-08-08 10:57] LABS: Troponin 5 2HR Delta -0.86 ABS# (0-10)
[2023-08-08 11:22] VITALS: O2SAT 96
== END 2023-08-08 11:42 | disposition home or self-care (01) ==
PROVIDERS: Emergency Provider Family Medicine; PCP Family Medicine
DX: R07.89 Other chest pain (principal); K62.5 Hemorrhage of anus and rectum; K57.30 Diverticulosis of large intestine without perforation or abscess without bleeding; J44.9 Chronic obstructive pulmonary disease, unspecified; F17.210 Nicotine dependence, cigarettes, uncomplicated
CPT/HCPCS: 36415; 71045; 74177; 80053; 81003; 84484; 85025; 85610; 85730; 93005; 96374; 99285; J2405; Q9967

== ENCOUNTER 2023-08-16 00:44 | Emergency (ER) | payer MEDICAID, SELFPAY ==
[2023-07-22 15:13] VITALS: BP 118/53; BMI 28.8
[2023-08-16 00:50] VITALS: BP 134/81; PULSE 99; RESP 15; TEMP 37.1; O2SAT 97
--- NOTE | 2023-08-16 00:51 | XRR_ITS ---
PROCEDURE INFORMATION: Exam: XR Chest Exam date and time: 08/16/2023 1:24 AM Age: 38 years old Clinical indication: Chest pressure; Patient HX: C/O chest pain TECHNIQUE: Imaging protocol: Radiologic exam of the chest. Views: 1 view. COMPARISON: CR XR chest 1V portable [id number] 08/08/2023 8:50 AM FINDINGS: Lungs: No focal lung consolidation. Pleural spaces: No pleural effusion. No pneumothorax. Heart/Mediastinum: No cardiomegaly. Bones/joints: No acute bony abnormality. XR/XR chest 1V portable [id number] IMPRESSION: No focal lung consolidation.
--- NOTE | 2023-08-16 00:51 | ECG_ITS ---
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 Measurements Intervals [place] Rate: 95 P: 34 NC: 139 QRS: 44 QRSD: 84 T: 18 QT: 332 QTc: 418 Interpretive Statements SINUS RHYTHM Compared to ECG 08/08/2023 10:41:31 Early repolarization no longer present Electronically Signed On 08-16-2023 18:45:27 CDT by Casey Magana M.D. [id number]
[2023-08-16 01:23] LABS: Basophils # 0.1 10^3/uL (0.0-0.1); Basophils % 0.7 %; Eosinophils # 0.2 10^3/uL (0.0-0.8); Eosinophils % 1.5 %; Hematocrit 48.4 % (37-53); Lymphocytes % 33.4 %; Mean Corpuscular HGB Conc 31.6 g/dL (30-55); Mean Corpuscular Hemoglobin 27.7 pg (27-33); Mean Corpuscular Volume 87.5 fl (82-101); Mean Platelet Volume 9.8 fL (7.4-10.4); Monocytes # 0.7 10^3/uL (0.2-0.9); Neutrophils # 6.92 10^3/uL (1.8-7.7); Neutrophils % 58.1 %; Nucleated Red Blood Cells % 0 %; Platelet Count 272 10^3/cmm (157-399); Red Blood Count 5.53 10^6/uL (3.85-5.65)
[2023-08-16 01:40] LABS: Alanine Aminotransferase 46 U/L (0-41); Albumin Level 4.5 g/dL (3.5-5.2); Alkaline Phosphatase 105 U/L (40-130); Anion Gap 17.2 (5-19); Aspartate Amino Transferase 30 U/L (0-40); Blood Urea Nitrogen 20 mg/dL (6-20); Calcium 9.3 mg/dL (8.5-10.5); Carbon Dioxide 22 mmol/L (22-29); Chloride 101 mmol/L (98-107); Globulin 2.8 g/dL (1.3-4.6); Glomerular Filtration Rate 61.8 mL/min (90-130); Glucose 111 mg/dL (65-115); Osmolality Calculated 285 mOsm/kg (285-295); Potassium 4.2 mmol/L (3.5-5.1); Sodium 136 mmol/L (136-145); Total Bilirubin 0.7 mg/dL (0.15-1.2); Total Protein 7.3 g/dL (6.6-8.7)
[2023-08-16 01:49] LABS: Troponin(5th) Baseline 9 ng/L (0-15)
[2023-08-16 01:51] VITALS: BP 105/71; PULSE 80; RESP 13; O2SAT 96
--- NOTE | 2023-08-16 01:57 | ED_ITS ---
HPI - Chest Pain 2 General: Chief Complaint: Chest Pain Stated Complaint: chest pain headache n/v Time Seen by Provider: 08/16/23 01:44 History of Present Illness: Patient states has had intermittent chest pain. Patient says about 30 minutes prior to arrival he took a big deep breath and felt something pop in his chest and has been having chest pain off and on ever since. Patient also complains of something growing on the inside of him and feels like it is biting him from the inside out. Patient has a history of known methamphetamine use. Patient is chest pain-free and appears in no acute distress and is nontoxic Review of Systems 2 General: Reports: 10 or more systems reviewed and unremarkable except in HPI and below PFSH ED 2 PFSH: Medical History GERD (gastroesophageal reflux disease) Insomnia Psychiatric care Parasitosis Suicidal ideation Depression Methamphetamine use disorder, severe COPD (chronic obstructive pulmonary disease) Family History Family/Other Cancer Maternal aunt-unknown Family/Other Cancer Maternal aunt-brain Other CAD (coronary artery disease) Stroke Denies family history of Diabetes Clotting disorder Dementia Hyperlipidemia Psychiatric illness Chronic kidney disease (CKD) Anesthesia complication Bleeding disorder Lung disease Hypertension Social History Smoking and tobacco/nicotine status: current every day tobacco/nicotine user cigarettes Packs smoked per day: 0.25 Years cigarettes smoked: 10 Alcohol intake: former Substance/Drug Use: former Date of last use: 08/2022 Adopted: Yes (Grandparents) Caregiver/support person: No Lives independently: Yes Household members: friend(s) Housing: Apartment Marital status: Single Number of children: 0 Highest education level completed: High School Graduate Current occupational status: unemployed and other Details: rehab facility resident Pets and animals: No Leisure activites: exercise and other Leisure activities details: Goes to [employer] during the day and meetings in the evening Sexually active: Yes Do you think of yourself as: Straight/Heterosexual Current gender identity: Male Raysa/Oriental Orthodox: Judaism Special raysa needs: No Agree to transfusion: Yes Physical Exam 2 Const: COMMON NORMALS: no acute distress, average body habitus, patient oriented x3, no limitations, healthy appearing, alert and well nourished HENMT: COMMON NORMALS: normocephalic, atraumatic, hearing grossly normal bilaterally, external ears normal, Normal external nose present and moist oral mucous membranes HEAD & SCALP: normocephalic and atraumatic NOSE: Normal external nose present EXTERNAL EAR: Yes external ears normal Neck/C-Spine: COMMON NORMALS: no JVD Chest: COMMONS NORMALS: normal inspection of the chest and normal palpation of entire chest wall Resp: COMMON NORMALS: normal respiratory effort, No retractions, No use of accessory muscles and clear to auscultation bilaterally AUSCULTATION: clear to auscultation bilaterally Cardio: COMMON NORMALS: no JVD, regular rate, regular rhythm, S1 normal heart sound present, S2 normal heart sound present, No gallops present (Cardio), No clicks present (Cardio), No murmurs present (Cardio) and No rub (Cardio) R ATE: regular rate RHYTHM: regular rhythm HEART SOUNDS: S1 normal heart sound present and S2 normal heart sound present GI: COMMON NORMALS: Normal to inspection, nondistended, normoactive bowel sounds present, Soft to palpation, non-tender, No hepatosplenomegaly present and no masses PALPATION: Yes Soft to palpation and Yes No hepatosplenomegaly present Neuro: COMMON NORMALS: patient oriented x3 SENSORIUM/ORIENTATION: Yes alert Course 2 Vital Signs: Vital signs: Vital Signs Temperature 98.8 F 08/16/23 00:50 Pulse Rate 84 08/16/23 02:17 Respiratory Rate 13 08/16/23 01:51 Blood Pressure 110/67 08/16/23 02:17 Pulse Oximetry 95 08/16/23 02:17 Oxygen Delivery Me thod Room Air 08/16/23 01:51 MDM - Chest Pain Medical Decision Making Patient was worked up in a standard chest pain fashion with serial EKGs, lab work, chest x-ray, all of which was unremarkable except urine urinalysis showed he may have a little urinary tract infection. We will wait for the culture to see if it is true infection versus contamination. Differential Diagnosis Unlikely acute massive pulmonary embolism, acute respiratory failure, acute myocardial infarction, cardiac arrest or sudden cardiac Medical Records I reviewed the patient's medical records. Lab Data I reviewed the patient's lab results. 08/16/23 01:12 08/16/23 01:12 Radiology Impressions Chest X-Ray 08/16/23 00:51 IMPRESSION: No focal lung consolidation. Laboratory Results WBC 11.90 10^3/uL (3.29-11.43) H 08/16/23 01:12 RBC 5.53 10^6/uL (3.85-5.65) 08/16/23 01:12 Hgb 15.30 g/dL (11.27-16.99) 08/16/23 01:12 Hct 48.4 % (37-53) 08/16/23 01:12 MCV 87.5 fl (82-101) 08/16/23 01:12 MCH 27.7 pg (27-33) 08/16/23 01:12 MCHC 31.6 g/dL (30-55) 08/16/23 01:12 RDW 13.0 % (12.1-15.1) 08/16/23 01:12 Plt Count 272 10^3/cmm (157-399) 08/16/23 01:12 MPV 9.8 fL (7.4-10.4) 08/16/23 01:12 Neut % (Auto) 58.1 % 08/16/23 01:12 Lymph % (Auto) 33.4 % 08/16/23 01:12 [place] % (Auto) 6.0 % 08/16/23 01:12 Eos % (Auto) 1.5 % 08/16/23 01:12 Baso % (Auto) 0.7 % 08/16/23 01:12 Neut # (Auto) 6.92 10^3/uL (1.8-7.7) 08/16/23 01:12 Lymph # (Auto) 4.0 10^3/uL (0.8-4.8) 08/16/23 01:12 [place] # (Auto) 0.7 10^3/uL (0.2-0.9) 08/16/23 01:12 Eos # (Auto) 0.2 10^3/uL (0.0-0.8) 08/16/23 01:12 Baso # (Auto) 0.1 10^3/uL (0.0-0.1) 08/16/23 01:12 Nucleated RBC % (auto) 0 % 08/16/23 01:12 Nucleated RBCs # 0.0 /100WBC 08/16/23 01:12 Sodium 136 mmol/L (136-145) 08/16/23 01:12 Potassium 4.2 mmol/L (3.5-5.1) 08/16/23 01:12 Chloride 101 mmol/L (98-107) 08/16/23 01:12 Carbon Dioxide 22 mmol/L (22-29) 08/16/23 01:12 Anion Gap 17.2 (5-19) 08/16/23 01:12 BUN 20 mg/dL (6-20) 08/16/23 01:12 Creatinine 1.3 mg/dL (0.7-1.2) H 08/16/23 01:12 GFR Calculation 61.8 mL/min (90-130) L 08/16/23 01:12 Glucose 111 mg/dL (65-115) 08/16/23 01:12 Calculated Osmolality 285 mOsm/kg (285-295) 08/16/23 01:12 Calcium 9.3 mg/dL (8.5-10.5) 08/16/23 01:12 Total Bilirubin 0.7 mg/dL (0.15-1.2) 08/16/23 01:12 AST 30 U/L (0-40) 08/16/23 01:12 ALT 46 U/L (0-41) H 08/16/23 01:12 Alkaline Phosphatase 105 U/L (40-130) 08/16/23 01:12 Troponin T Baseline 9 ng/L (0-15) 08/16/23 01:12 Troponin T 120 Minute 8.10 ng/L (0-15) 08/16/23 03:56 Delta Troponin T -0.90 ABS# (0-10) L 08/16/23 03:56 Total Protein 7.3 g/dL (6.6-8.7) 08/16/23 01:12 Albumin 4.5 g/dL (3.5-5.2) 08/16/23 01:12 Globulin 2.8 g/dL (1.3-4.6) 08/16/23 01:12 Urine Color Yellow (Yellow) 08/16/23 02:14 Urine Appearance Clear (CLEAR) 08/16/23 02:14 Urine pH 5 (5-7) 08/16/23 02:14 Ur Specific [place] [employer] 1.020 (1.005-1.030) 08/16/23 02:14 Urine Protein Trace (Negative) 08/16/23 02:14 Urine Glucose (UA) Norm (Normal) 08/16/23 02:14 Urine Ketones 1+ (Negative) H 08/16/23 02:14 Urine Blood Neg (Negative) 08/16/23 02:14 Urine Nitrate Negative (Negative) 08/16/23 02:14 Urine Bilirubin 1+ (Negative) H 08/16/23 02:14 Urine Urobilinogen 1 mg/dL (Negative) H 08/16/23 02:14 Ur Leukocyte Esterase Trace (Negative) H 08/16/23 02:14 Urine RBC 0-4 /hpf (0-2) H 08/16/23 02:14 Urine WBC 0-4 /hpf (0-5) H 08/16/23 02:14 Ur Squamous Epith Cells 0-4 /hpf (0-5) H 08/16/23 02:14 Amorphous Sediment Not Reportable 08/16/23 02:14 Urine Bacteria 1+ /hpf (NONE) H 08/16/23 02:14 Urine Mucus Trace /hpf 08/16/23 02:14 Urine Opiates Screen Negative ng/mL (Negative) 08/16/23 02:14 Ur Barbiturates Screen Negative ng/mL (Negative) 08/16/23 02:14 Ur Phencyclidine Scrn Negative ng/mL (Negative) 08/16/23 02:14 Ur Amphetamines Screen Negative ng/mL (Negative) 08/16/23 02:14 U Benzodiazepines Scrn Negative ng/mL (Negative) 08/16/23 02:14 Urine Cocaine Screen Negative ng/mL (Negative) 08/16/23 02:14 U Marijuana (THC) Screen Positive ng/mL (Negative) H 08/16/23 02:14 All radiology interpretation(s) finalized by discharge Discharge Plan Discharge Patient Disposition: Home Clinical Impression: Atypical chest pain Condition: Stable Prescriptions: No Action budesonide-formoterol [Symbicort] 80-4.5 mcg/actuation HFA aerosol inhaler 2 puff inhalation BID Qty: 10.2 2RF escitalopram oxalate 10 mg tablet 10 mg PO DAILY Qty: 30 2RF Aquaphor Original 41 % ointment 1 applic topical BID PRN (Reason: dry skin) 14 Days Qty: 396 0RF polyethylene glycol 3350 [Miralax] 17 gram/dose powder 17 g PO DAILY PRN (Reason: constipation) Qty: 238 0RF hydroxyzine pamoate 25 mg capsule 25 mg PO TID PRN (Reason: anxiety) Qty: 90 1RF Abilify Maintena 300 mg suspension,extended rel syring 300 mg IM Q28D Qty: 1 5RF Rx Instructions: Inject one dose of 300 mg IM monthly omeprazole 40 mg capsule,delayed release(DR/EC) 40 mg PO BID 30 Days Qty: 60 0RF sucralfate [Carafate] 1 gram tablet 1 g PO BID 30 Days Qty: 60 0RF clobetasol 0.05 % ointment 1 applic TOPICAL BID PRN (Reason: Skin Irritation) trazodone 100 mg tablet 100 mg PO BEDTIME PRN (Reason: insomnia) Cipro 500 mg tablet 500 mg PO BID Qty: 14 0RF Discharge Orders: Discharge ED (Routine); Ordered 08/16/23 Ordered By: Afshin Humphrey Referrals: Maury Flores MD [Primary Care Provider] - 1 week Patient Instructions: Noncardiac Chest Pain (ED) Activity Restrictions/Additional Instructions: Your chest pain workup in ER did not show any acute cardiac cause of your chest pain. Your urine did show some low levels of bacteria, we will grow these out and see if it is a true infection versus contamination. Please follow-up with your family practice physician within the next 7 days for further evaluation and treatment. Coding Level of Care Code ED Mold Sander for Nicholas Lema
[2023-08-16 02:17] VITALS: BP 110/67; PULSE 84; O2SAT 95
[2023-08-16] MEDS: sodium chloride 0.9% 1,000 ML 999 ML IV (02:22)
[2023-08-16 02:25] LABS: Add Urine Microscopic? YES; Bilirubin Urine 1+ (Negative); Blood Urine Neg (Negative); Glucose Urine UA Norm (Normal); Ketones Urine 1+ (Negative); Leukocyte Esterase Urine Trace (Negative); Nitrate Urine Negative (Negative); Protein Urine Trace (Negative); Urine Appearance Clear (CLEAR); Urine Color Yellow (Yellow); Urobilinogen Urine 1 mg/dL (Negative); pH Urine 5 (5-7)
[2023-08-16 02:26] LABS: Bacteria Urine 1+ /hpf; Mucus Urine TRACE /hpf; RBC Urine 0-4 /hpf (0-2); Squamous Epithelial Cell Urine 0-4 /hpf (0-5); WBC Urine 0-4 /hpf (0-5)
[2023-08-16 02:28] LABS: Amphetamines Screen Urine Negative (Negative); Barbiturates Screen Urine Negative (Negative); Benzodiazepines Screen Urine Negative (Negative); Cocaine Screen Urine Negative (Negative); Opiate Screen Urine Negative (Negative); PCP Screen Urine Negative (Negative); THC Screen Urine Positive (Negative)
--- NOTE | 2023-08-16 03:25 | ECG_ITS ---
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 Measurements Intervals [place] Rate: 65 P: 43 WI: 144 QRS: 45 QRSD: 129 T: 29 QT: 372 QTc: 387 Interpretive Statements SINUS RHYTHM WITH SINUS ARRHYTHMIA POSSIBLE INFERIOR MYOCARDIAL INFARCTION , OF INDETERMINATE AGE [30 ms Q WAVE IN II/aVF] Compared to ECG 08/16/2023 00:51:25 Myocardial infarct finding now present Electronically Signed On 08-16-2023 18:51:40 CDT by Casey Magana M.D. [id number]
[2023-08-16 03:30] VITALS: BP 118/63; PULSE 74; O2SAT 96
[2023-08-16 05:23] VITALS: BP 118/63; PULSE 76; O2SAT 96
== END 2023-08-16 05:27 | disposition home or self-care (01) ==
PROVIDERS: Emergency Provider Emergency Medicine; PCP Family Medicine
DX: R07.89 Other chest pain (principal); J44.9 Chronic obstructive pulmonary disease, unspecified; F17.210 Nicotine dependence, cigarettes, uncomplicated; Z79.899 Other long term (current) drug therapy
CPT/HCPCS: 36415; 71045; 80053; 80306; 81001; 84484; 85025; 93005; 99285; J7030

== ENCOUNTER 2023-09-17 11:41 | Outpatient (CLI) | payer MEDICAID, SELFPAY ==
[2023-07-22 15:13] VITALS: BP 118/53; BMI 28.8
[2023-09-17 11:55] VITALS: BMI 29.5
--- NOTE | 2023-09-17 12:01 | ECG_ITS ---
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 Interpretive Statements NAME OF STUDY: TREADMILL STRESS TEST INDICATION: [Atypical Chest Pain] EXERCISE DATA: The patient was exercised by John protocol. Baseline heart rate was 74 beats per minute. Baseline blood pressure was 106/66 millimeters of mercury. Maximal predicted heart rate was 182 beats per minute. Maximum heart rate achieved was 162, which was 89% of the maximum predicted heart rate. Maximum blood pressure was 149/47 millimeters of mercury. Total exercise time was 9 minutes and 40 seconds. Maximum METs achieved was 13.5. The reason for ending the test was completion of protocol. The patient complained of shortness of breath during the stress test, which then resolved at the end of the test. ELECTROCARDIOGRAM: BASELINE: Showed sinus rhythm, normal axis, no significant ST-T changes at the baseline noted. [] EXERCISE: At the peak exercise level, [] No significant ST-T changes suggestive of ischemia noted. [] RECOVERY: During the recovery period, heart rate dropped appropriately. No significant ST-T changes in the recovery suggestive of ischemia noted. [] CONCLUSION: 1. Exercise capacity is excellent 2. Heart rate response was appropriate 3. Blood pressure response was appropriate 4. Symptoms not suggestive of ischemia. 5. Stress test does not show ischemia. Electronically Signed On 09-22-2023 21:09:17 CDT by Casey Magana M.D. [id number]
[2023-09-17 13:08] VITALS: BP 124/68; PULSE 118
== END 2023-09-17 11:42 | disposition home or self-care (01) ==
PROVIDERS: PCP Family Medicine; Visit Provider Family Medicine
DX: R07.89 Other chest pain (principal)
CPT/HCPCS: 93017

== ENCOUNTER 2024-11-03 08:22 | Outpatient (CLI) | payer MEDICAID, SELFPAY ==
[2023-07-22 15:13] VITALS: BP 118/53; BMI 28.8
--- NOTE | 2024-11-03 08:30 | US_ITS ---
WS: [id number] Complete ABDOMINAL ULTRASOUND HISTORY: ABNORMAL RESULTS OF LIVER FUNCTION STUDIES COMPARISON: Ultrasound 04/30/2023 Liver: 16.7 cm in length. Liver is top normal size. Marked attenuation with increased echogenicity throughout the liver. Poor deep penetration due to hepatic steatosis. No intraparotid mass. Portal Vein: Normal hepatopetal flow with monophasic waveform. Gallbladder: Ringdown artifact in the gallbladder suggesting adenomyomatosis. No stones. CBD: 0.3 cm Pancreas: Not visualized. Right kidney: 10.2 cm x 4.2 x 4.2 cm. Cortex:1.3 cm. Normal size and echogenicity. No hydronephrosis or mass. Left kidney: 10.0 cm x 5.1 cm x 4.4 cm. Cortex: 1.5 cm. Normal size and echogenicity. No hydronephrosis or mass. Spleen: 13.6 cm. Normal size and echogenicity. Aorta and IVC: Unremarkable abdominal aorta and IVC. US/US abdomen complete* [id number] Impression: 1. No cholelithiasis. 2. Gallbladder adenomyomatosis. 3. Top normal size liver with marked hepatic steatosis. 4. Normal common bile duct.
== END 2024-11-03 08:23 | disposition home or self-care (01) ==
LOC: RAD 08:23
PROVIDERS: PCP Family Medicine; Visit Provider Internal Medicine
DX: R94.5 Abnormal results of liver function studies (principal); K76.0 Fatty (change of) liver, not elsewhere classified; K82.8 Other specified diseases of gallbladder
CPT/HCPCS: 76700

== ENCOUNTER 2024-12-11 11:07 | Emergency (ER) | payer MEDICAID, SELFPAY ==
[2023-07-22 15:13] VITALS: BP 118/53; BMI 28.8
[2024-12-11 11:10] VITALS: BP 116/78; PULSE 94; RESP 14; TEMP 36.9; O2SAT 97; BMI 31.6
--- NOTE | 2024-12-11 11:19 | W.ED.ABDPA2 ---
HPI - Abdominal Pain General: Chief Complaint: Abdominal Pain Stated Complaint: R ABD Pain Time Seen by Provider: 12/11/24 11:10 History of Present Illness: 39-year-old male presents to the emergency room with right upper quadrant abdominal pain has been going on for the last week he is not was eating exacerbates or relieves it. He said some mild nausea but no vomiting. No hematemesis or coffee-ground emesis denies any fever. Patient is in rehab at [facility]. He recently started Mounjaro for weight loss. No previous abdominal surgeries. He denies shortness of breath or cough. No diarrhea. No dysuria urgency or frequency or hematuria Associated Symptoms: Reports nausea; Denies chills, coffee ground emesis, dysuria, fever(s), hematemesis and vomiting Related Data Home Medications ?Medication ?Instructions ?Recorded ?Confirmed quetiapine 25 mg tablet (Seroquel) 25 mg PO DAILY 10/08/24 10/08/24 Previous Rx's ?Medication ?Instructions ?Recorded albuterol sulfate 90 mcg/actuation 2 puff inhalation Q6H PRN 10/08/24 aerosol inhaler (Ventolin HFA) shortness of breath or wheezing #8.5 grams amoxicillin 875 mg-potassium 1 tab PO BID 7 days #14 tabs 10/08/24 clavulanate 125 mg tablet prednisone 20 mg tablet 20 mg PO BID 5 days #10 tabs 10/08/24 Allergies Allergy/AdvReac Type Severity Reaction Status Date / Time No Known Allergies Allergy Verified 09/17/23 12:06 Review of Systems Const: Denies: fever(s) or chills Card: Denies: chest pain Resp: Denies: dyspnea GI: Reports: abdominal pain and nausea; Denies: vomiting, hematemesis or coffee ground emesis : Denies: dysuria, urinary frequency or urinary urgency Musc: Denies: neck pain or back pain Skin/Breast: Denies: rash PFSH ED PFSH: Medical History GERD (gastroesophageal reflux disease) Insomnia Parasitosis Suicidal ideation Depression Methamphetamine use disorder, severe COPD (chronic obstructive pulmonary disease) Family History Family/Other Cancer Maternal aunt-unknown Family/Other Cancer Maternal aunt-brain Other CAD (coronary artery disease) Stroke Denies family history of Diabetes Clotting disorder Dementia Hyperlipidemia Psychiatric illness Chronic kidney disease (CKD) Anesthesia complication Bleeding disorder Lung disease Hypertension Social History Smoking and tobacco/nicotine status: current every day tobacco/nicotine user cigarettes Packs smoked per day: 0.25 Years cigarettes smoked: 10 Alcohol intake: former Substance/Drug Use: former Date of last use: 08/2022 Adopted: Yes (Grandparents) Caregiver/support person: No Lives independently: Yes Household members: friend(s) Housing: Apartment Marital status: Single Number of children: 0 Highest education level completed: High School Graduate Current occupational status: unemployed and other Details: rehab facility resident Pets and animals: No Leisure activites: exercise and other Leisure activities details: Goes to [employer] during the day and meetings in the evening Sexually active: Yes Do you think of yourself as: Straight/Heterosexual Current gender identity: Male Raysa/Mandaen: Protestant Special raysa needs: No Agree to transfusion: Yes Physical Exam Const: GENERAL APPEARANCE: cooperative ORIENTATION/CONSCIOUSNESS: Yes awake, Yes oriented to person, Yes oriented to place and Yes oriented to time HENMT: COMMON NORMALS: normocephalic, atraumatic and hearing grossly normal bilaterally HEAD & SCALP: normocephalic and atraumatic Resp: COMMON NORMALS: normal respiratory effort, No retractions, No use of accessory muscles and clear to auscultation bilaterally AUSCULTATION: clear to auscultation bilaterally Cardio: COMMON NORMALS: regular rate, regular rhythm and No murmurs present (Cardio) RATE: regular rate RHYTHM: regular rhythm GI: COMMON NORMALS: No hepatosplenomegaly present AUSCULTATION: Yes normoactive bowel sounds PALPATION: Yes Tenderness to palpation present (GI) (Mild right upper quadrant tenderness no guarding or rebound), No Guarding due to palpation present (GI) and Yes No hepatosplenomegaly present Extremity: COMMON NORMALS: normal to inspection, capillary refill normal, no clubbing, cyanosis or edema, no calf tenderness and no pedal edema Neuro: SENSORIUM/ORIENTATION: Yes oriented to person, Yes oriented to place and Yes oriented to time Skin: COMMON NORMALS: no rashes or lesions noted GENERAL SKIN EXAM: no rashes or lesions noted Course Vital Signs: Vital signs: Vital Signs Temperature 98.4 F 12/11/24 11:10 Pulse Rate 92 12/11/24 13:48 Respiratory Rate 16 12/11/24 13:48 Blood Pressure 143/65 12/11/24 13:48 Pulse Oximetry 95 12/11/24 13:48 Oxygen Delivery Me thod Room Air 12/11/24 12:06 MDM - Abdominal Pain Medical Decision Making Patient seen initially with complaint of right upper quadrant abdominal pain CBC CMP UA lipase ordered. Differential diagnosis includes cholecystitis biliary colic cholelithiasis bowel obstructions gastritis peptic ulcer disease duodenal ulcer. This. CT does not show any acute abnormalities. ALT slightly elevated at 43 the remainder liver enzymes alk phos and T. bili are normal lipase is normal. Significant amount of gas on the ultrasound. No acute cholecystitis. UA negative. Discharge patient home clear liquid diet for 24 to 48 hours advance as tolerated turn for us for problems. Medical Records I reviewed the patient's medical records. Lab Data I reviewed the patient's lab results. 12/11/24 11:19 12/11/24 12:14 Labs/Radiology: Radiology Impressions Gallbladder Ultrasound 12/11/24 11:52 IMPRESSION: 1. Extremely limited RIGHT upper quadrant ultrasound. 2. Gallbladder is not definitely identified. 3. Hepatic enlargement with severe hepatic steatosis. Laboratory Results WBC 10.43 10^3/uL (3.29-11.43) 12/11/24 11:19 RBC 5.13 10^6/uL (3.85-5.65) 12/11/24 11:19 Hgb 14.10 g/dL (11.27-16.99) 12/11/24 11:19 Hct 43.9 % (37-53) 12/11/24 11:19 MCV 85.6 fl (82-101) 12/11/24 11:19 MCH 27.5 pg (27-33) 12/11/24 11:19 MCHC 32.1 g/dL (30-55) 12/11/24 11:19 RDW 13.7 % (12.1-15.1) 12/11/24 11:19 Plt Count 204 10^3/cmm (157-399) 12/11/24 11:19 MPV 11.3 fL (7.4-10.4) H 12/11/24 11:19 Neut % (Auto) 52.8 % 12/11/24 11:19 Lymph % (Auto) 38.3 % 12/11/24 11:19 Divide % (Auto) 5.2 % 12/11/24 11:19 Eos % (Auto) 2.0 % 12/11/24 11:19 Baso % (Auto) 1.0 % 12/11/24 11:19 Neut # (Auto) 5.52 10^3/uL (1.8-7.7) 12/11/24 11:19 Lymph # (Auto) 4.0 10^3/uL (0.8-4.8) 12/11/24 11:19 Divide # (Auto) 0.5 10^3/uL (0.2-0.9) 12/11/24 11:19 Eos # (Auto) 0.2 10^3/uL (0.0-0.8) 12/11/24 11:19 Baso # (Auto) 0.1 10^3/uL (0.0-0.1) 12/11/24 11:19 Nucleated RBC % (auto) 0 % 12/11/24 11:19 Nucleated RBCs # 0.0 /100WBC 12/11/24 11:19 Sodium 138 mmol/L (136-145) 12/11/24 12:14 Potassium 4.3 mmol/L (3.5-5.1) 12/11/24 12:14 Chloride 104 mmol/L (98-107) 12/11/24 12:14 Carbon Dioxide 20 mmol/L (22-29) L 12/11/24 12:14 Anion Gap 18.3 (5-19) 12/11/24 12:14 BUN 19 mg/dL (6-20) 12/11/24 12:14 Creatinine 0.9 mg/dL (0.7-1.2) 12/11/24 12:14 GFR Calculation 93.9 mL/min (90-130) 12/11/24 12:14 Glucose 204 mg/dL (65-115) H 12/11/24 12:14 Calculated Osmolality 294 mOsm/kg (285-295) 12/11/24 12:14 Calcium 8.9 mg/dL (8.5-10.5) 12/11/24 12:14 Total Bilirubin 0.3 mg/dL (0.15-1.2) 12/11/24 12:14 AST 33 U/L (0-40) 12/11/24 12:14 ALT 43 U/L (0-41) H 12/11/24 12:14 Alkaline Phosphatase 113 U/L (40-130) 12/11/24 12:14 Total Protein 6.6 g/dL (6.6-8.7) 12/11/24 12:14 Albumin 4.1 g/dL (3.5-5.2) 12/11/24 12:14 Globulin 2.5 g/dL (1.3-4.6) 12/11/24 12:14 Lipase 53 U/L (13-60) 12/11/24 12:14 Urine Color Yellow (Yellow) 12/11/24 11:41 Urine Appearance Clear (CLEAR) 12/11/24 11:41 Urine pH 6.0 (5-7) 12/11/24 11:41 Ur Specific Bowie 1.032 (1.005-1.030) H 12/11/24 11:41 Urine Protein Trace (Negative) A 12/11/24 11:41 Urine Glucose (UA) Negative (Normal) 12/11/24 11:41 Urine Ketones Trace (Negative) 12/11/24 11:41 Urine Blood Negative (Negative) 12/11/24 11:41 Urine Nitrate Negative (Negative) 12/11/24 11:41 Urine Bilirubin Negative (Negative) 12/11/24 11:41 Urine Urobilinogen 1.0 mg/dL (Negative) 12/11/24 11:41 Ur Leukocyte Esterase Negative (Negative) 12/11/24 11:41 Urine RBC 0-2 /hpf (0-2) 12/11/24 11:41 Urine WBC 0-5 /hpf (0-5) 12/11/24 11:41 Ur Squamous Epith Cells 0-5 /hpf (0-5) 12/11/24 11:41 Amorphous Sediment Not Reportable 12/11/24 11:41 Urine Bacteria None seen /hpf (NONE) 12/11/24 11:41 Hyaline Casts 0-4 /lpf H 12/11/24 11:41 All radiology interpretation(s) finalized by discharge Discharge Plan Discharge Patient Disposition: Home Clinical Impression: Abdominal pain Condition: Stable Prescriptions: No Action quetiapine [Seroquel] 25 mg tablet 25 mg PO DAILY prednisone 20 mg tablet 20 mg PO BID 5 Days Qty: 10 0RF albuterol sulfate [Ventolin HFA] 90 mcg/actuation HFA aerosol inhaler 2 puff inhalation Q6H PRN (Reason: shortness of breath or wheezing) Qty: 8.5 0RF amoxicillin-pot clavulanate 875-125 mg tablet 1 tab PO BID 7 Days Qty: 14 0RF Discharge Orders: Discharge ED (Routine); Ordered 12/11/24 Ordered By: Natanael Boothe Referrals: Maury Flores MD [Primary Care Provider, Family Practice] Discharge Diet: Clear Liquid Discharge Activity: Resume usual activity Patient Instructions: Abdominal Pain (ED), Opioid Safety, Pain Management, Patient Portal & Becky Instructions Activity Restrictions/Additional Instructions: Thank you for choosing [facility] for your healthcare needs today. It is very important that you follow up as instructed or that you return to the Emergency Department should you have concerns or if your condition changes or worsens in any way. Emergency department visits are focused on emergent conditions, in some cases you may require further evaluation on an outpatient basis. You are seen emergency room complaint of abdominal pain. Laboratory test did not show any significant abnormality ultrasound your gallbladder did not show any acute cholecystitis did show large amount of retained gas in the bowels. I think your pain is coming from this that is just from the bowel gas there is no emergent finding at this time recommend clinical diet for 24 to 48 hours advance as tolerated (Please note that included in your discharge packet is information concerning opioid safety and pain management. This information is given to all patients were discharged from the ER regardless of their discharge diagnosis or the medicines they usually take or are prescribed.) Print Language: Sinhala Coding Level of Care Code ED Marine Mechanic for Nicholas Lema
[2024-12-11 11:25] LABS: Hematocrit 43.9 % (37-53); Hemoglobin 14.10 g/dL (11.27-16.99); Mean Corpuscular HGB Conc 32.1 g/dL (30-55); Mean Corpuscular Hemoglobin 27.5 pg (27-33); Mean Corpuscular Volume 85.6 fl (82-101); Nucleated Red Blood Cells % 0 %; Platelet Count 204 10^3/cmm (157-399); Red Blood Count 5.13 10^6/uL (3.85-5.65); White Blood Count 10.43 10^3/uL (3.29-11.43)
[2024-12-11 11:50] LABS: Glucose Urine UA Negative (Normal); Nitrate Urine Negative (Negative)
[2024-12-11 11:52] LABS: Add Urine Microscopic? YES
--- NOTE | 2024-12-11 11:52 | US_ITS ---
WS: [id number] RIGHT UPPER QUADRANT ULTRASOUND HISTORY: Right upper quadrant abdominal pain COMPARISON: CT 08/08/2023, RIGHT upper quadrant ultrasound 11/03/2024 Liver: 18.0 cm in length. Poorly visualized liver. There is marked attenuation and increased echogenicity throughout the liver. Loss of the normal portal triads. Findings are most consistent with severe hepatic steatosis. The liver does appear enlarged. Portal Vein: Limited. Gallbladder: Gallbladder is not definitely visualized. There is shadowing from the RIGHT upper quadrant but this may be GI tract. CBD: 0.4 cm Pancreas: Not visualized. Right kidney: 9.9 cm in length. Normal size. No hydronephrosis. Otherwise limited. Aorta and IVC: Not visualized. No ascites. US/US gall bladder [id number] IMPRESSION: 1. Extremely limited RIGHT upper quadrant ultrasound. 2. Gallbladder is not definitely identified. 3. Hepatic enlargement with severe hepatic steatosis.
[2024-12-11 11:57] LABS: Specific Gravity, Urine 1.032 (1.005-1.030)
[2024-12-11 12:06] VITALS: BP 159/95; PULSE 94; RESP 16; O2SAT 96
[2024-12-11 12:41] LABS: Alanine Aminotransferase 43 U/L (0-41); Albumin Level 4.1 g/dL (3.5-5.2); Alkaline Phosphatase 113 U/L (40-130); Anion Gap 18.3 (5-19); Aspartate Amino Transferase 33 U/L (0-40); Blood Urea Nitrogen 19 mg/dL (6-20); Calcium 8.9 mg/dL (8.5-10.5); Carbon Dioxide 20 mmol/L (22-29); Chloride 104 mmol/L (98-107); Creatinine Clr Calc Pharmacy 126.6359; Globulin 2.5 g/dL (1.3-4.6); Glucose 204 mg/dL (65-115); Lipase 53 U/L (13-60); Osmolality Calculated 294 mOsm/kg (285-295); Potassium 4.3 mmol/L (3.5-5.1); Sodium 138 mmol/L (136-145); Total Protein 6.6 g/dL (6.6-8.7)
[2024-12-11 13:05] VITALS: BP 131/60; PULSE 86; O2SAT 97
[2024-12-11 13:48] VITALS: BP 143/65; PULSE 92; RESP 16; O2SAT 95
== END 2024-12-11 13:48 | disposition home or self-care (01) ==
PROVIDERS: Emergency Provider Family Medicine; PCP Family Medicine
DX: R10.11 Right upper quadrant pain (principal); F17.210 Nicotine dependence, cigarettes, uncomplicated; J44.9 Chronic obstructive pulmonary disease, unspecified
CPT/HCPCS: 36415; 76705; 80053; 81001; 83690; 85025; 99284